=== PATIENT | male | born 1985 | race Caucasian/White ===

== ENCOUNTER 2022-04-08 21:23 | Emergency (ER) | payer OTHER, SELFPAY ==
[2022-04-08 22:01] VITALS: BP 123/86; PULSE 78; RESP 16; TEMP 36.4; O2SAT 99; BMI 31.6
--- NOTE | 2022-04-08 22:44 | CRLHL7_ITS ---
For Patients: As a result of the Cures Act, medical imaging exams and procedure reports are released immediately into your electronic medical record. You may view this report before your referring provider. If you have questions, please contact your health care provider. INDICATION: Left knee effusion. COMPARISON: Bilateral knees from 11/04/2020 FINDINGS: The left knee was examined with AP, lateral, and sunrise views for a total of three views. There is no sign of fracture or dislocation. There is progressive primary osteoarthritis of the medial joint compartment, now moderate, with moderate joint space narrowing and moderate marginal osteophyte formation, both increased during the interval. The lateral joint compartment is normal in appearance. There continues to be mild primary osteoarthritis of the patellofemoral articulation with mild marginal osteophyte formation. There is a stable moderate suprapatellar joint effusion. No soft tissue abnormality is seen. IMPRESSION: Stable moderate suprapatellar joint effusion. No sign of acute osseous injury. Progression of primary osteoarthritis of the medial joint compartment, now moderate. Stable mild primary osteoarthritis of the patellofemoral articulation. Dictated by Oneil Pope MD @ 04/08/2022 11:31:38 PM (Electronically Signed)
[2022-04-08 23:20] VITALS: TEMP 36.4
[2022-04-08] MEDS: KETOROLAC 30 MG/ML inj IM (23:20)
--- NOTE | 2022-04-08 23:22 | ED_ITS ---
HPI - Extremity Injury (Lower) General Time Seen by Provider: 23:25 Date Seen: 04/08/22 Chief Complaint: Extremity Pain/Injury, Lower Stated Complaint: Left knee pain Time Seen by Provider: 04/08/22 22:36 Source: patient, RN notes reviewed and old records reviewed Mode of arrival: ambulatory Limitations: no limitations History of Present Illness HPI Narrative: Anjel is a very pleasant 36-year-old gentleman with a history of gout who comes to the emergency room with left knee pain and swelling. Patient notes that this is been ongoing for approximately 10 days. He initially thought this may be related to his participation in [employer]. He notes that even though his knee was bothering him on ThursdayApril 07 he still participated and noticed increasing pain after that. Has had pain and swelling in this knee before related to gout and thus he had been taking indomethacin. It has not really helped. He does not remember a moment in digits 2 where he felt something snap but feels like there is something going on inside. He does note that his exercises have been very intense lately. Moving definitely increases the pain. He does have crutches at home but has not been using them. Denies any other injury. Related Data Home Medications Medication Instructions Recorded Confirmed allopurinol 100 mg tablet 100 mg PO DAILY 04/08/22 04/08/22 Previous Rx's Medication Instructions Recorded indomethacin 25 mg capsule 25 mg PO TID PRN #60 cap 04/08/22 Allergies Allergy/AdvReac Type Severity Reaction Status Date / Time No Known Drug Allergies Allergy Verified 04/08/22 22:04 Review of Systems Narrative: No recent fever chills. Denies numbness or tingling. [facility] Medical History Gout Surgical History No significant past surgical history Social History Smoking Status: Never smoker Do you use any of these nicotine containing products: None How often do you have a drink containing alcohol: never How often do you have six or more drinks on one occasion: Never AUDIT-C Alcohol total score: 0 Non-prescribed substance use: denies use Exam Narrative: Exam Narrative: Patient is alert and oriented. No respiratory distress. Patient clearly has effusion of the left knee. It is not erythematous nor warm to the touch. Patient has pain increased with posterior movement of the lower extremity. Anterior drawer is mildly positive. Distally sensation and motor is intact. Const: Vital Signs, click to edit/add: Vital Signs - 24 hr 04/08/22 22:01 04/08/22 23:20 Temperature 97.6 F 97.6 F Pulse Rate [Right Pulse Oximeter] 78 Respiratory Rate 16 Blood Pressure [Ri ght Upper Arm] 123/86 Pulse Oximetry 99 Course Course Hospital Course: At this time patient is receptive to Toradol 30 mg IM. Will proceed with x-ray of the left knee. Prescription monitoring program checked and patient did receive Vicodin in Jan, 2015 tablets, tramadol in December and 6 tablets of Vicodin in June 05. Vital Signs Vital signs: Initial Vital Signs Temperature 97.6 F 04/08/22 22:01 Temperature Source Temporal Artery Scan 04/08/22 22:01 Pulse Rate 78 04/08/22 22:01 Respiratory Rate 16 04/08/22 22:01 Blood Pressure 123/86 04/08/22 22:01 Blood Pressure Mean 98 04/08/22 22:01 Blood Pressure Position Sitting 04/08/22 22:01 Pulse Oximetry 99 04/08/22 22:01 Oxygen Delivery Method 04/08/22 22:01 Vital Signs Temperature 97.6 F 04/08/22 22:01 Pulse Rate 78 04/08/22 22:01 Respiratory Rate 16 04/08/22 22:01 Blood Pressure 123/86 04/08/22 22:01 Pulse Oximetry 99 04/08/22 22:01 Temperature 97.6 F 04/08/22 23:20 Pulse Rate 78 04/08/22 22:01 Respiratory Rate 16 04/08/22 22:01 Blood Pressure 123/86 04/08/22 22:01 Pulse Oximetry 99 04/08/22 22:01 MDM - Extremity Injury (Lower) MDM Narrative Medical decision making narrative: 1. Left knee effusion-I do not think we are dealing with gout in this particular instance as patient had no improvement with indomethacin. 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 I would recommend Scott wrap. Initially we spoke of a knee immobilizer but he states he tried 1 at home and this increased his pain. Would recommend icing mid limited movement and the use of crutches. He does have crutches at home. Will give him a read fill of his Indocin that he may use as an anti- inflammatory. Will also give him few tablets of Vicodin only for tonight. Would recommend follow-up with Orthopedics as he may need MRI. Note for work for this evening for patient. Scott wrap applied. 2. Disposition home. Medical Records Attestation: I reviewed the patient's medical records. Imaging Data Left knee: Attestation: I have reviewed the pertinent imaging results. My impression: Joint effusion. Radiologist's impression: Joint effusion and progression of primary osteoarthritis. Discharge Plan Discharge Clinical Impression: Effusion of left knee Patient Disposition: Home, Self-Care Condition: Improved Additional Instructions: Indomethacin as needed for discomfort. Vicodin to be used sparingly for pain not relieved by indomethacin. Follow up with Orthopedics for recheck. You may need MRI. Return to the emergency room for fever, increasing redness and as needed. Prescriptions: New indomethacin 25 mg capsule 25 mg PO TID PRN (Reason: premature labor) Qty: 60 0RF Rx Instructions: administer with food or milk No Action allopurinol 100 mg tablet 100 mg PO DAILY 0RF Stand Alone Forms: [employer] Info Instructions
[2022-04-08 23:45] VITALS: BP 119/85; PULSE 79; RESP 16; TEMP 36.4; O2SAT 99
[2022-04-08 23:46] VITALS: BP 119/85; PULSE 79; RESP 16; TEMP 36.4
== END 2022-04-08 23:56 | disposition home or self-care (01) ==
PROVIDERS: Emergency Provider Family Medicine
DX: M25.462 Effusion, left knee (principal)
CPT/HCPCS: 73562; 96372; 99283; 99284; J1885

== ENCOUNTER 2022-08-16 18:17 | Emergency (ER) | payer OTHER, SELFPAY ==
[2022-08-16 18:22] VITALS: BMI 31.8
--- NOTE | 2022-08-16 18:44 | ED.UPPEXIN ---
HPI - Extremity Injury (Upper) General Time Seen by Provider: 18:44 Date Seen: 08/16/22 Chief Complaint: Extremity Pain/Injury, Upper Stated Complaint: R wrist injury, Giuseppeu injury Time Seen by Provider: 08/16/22 18:44 Source: patient and RN notes reviewed Mode of arrival: ambulatory Limitations: no limitations History of Present Illness HPI narrative: Patient is a 37-year-old male coming in with right wrist pain from earlier this week. It has been swelling and having pain since an injury from qamar. Denies any numbness tingling but moving his fingers or his hand hurts along the wrist area. Nothing else was injured. It is his wrist that is hurting. complaint: injury to: right and wrist Related Data Previous Rx's Medication Instructions Recorded lidocaine 4 % topical patch 1 patch topical BID PRN pain #10 ea 06/05/22 (Aspercreme (lidocaine)) methocarbamol 750 mg tablet 750 mg PO Q8H #10 tabs 06/05/22 Allergies Allergy/AdvReac Type Severity Reaction Status Date / Time No Known Drug Allergies Allergy Verified 08/16/22 18:22 Review of Systems Narrative: As per HPI [facility] Medical History Gout Surgical History No significant past surgical history Social History Smoking Status: Never smoker Do you use any of these nicotine containing products: None How often do you have a drink containing alcohol: never How often do you have six or more drinks on one occasion: Never AUDIT-C Alcohol total score: 0 Non-prescribed substance use: denies use service: Yes Exam Const: Documenting provider has reviewed patient's vital signs: yes Common normals: no apparent distress, average body habitus, oriented x3, no limitations, healthy appearing, alert and well nourished Other: Patient has some obvious soft tissue swelling without any ecchymosis about his right wrist in comparison to his left. No snuffbox tenderness. Can flex and extend the fingers but he states that causes pain into the wrist. Pain is most definitely isolated to the wrist area, is not into the forearm above the wrist or into the hand. Feels more pain dorsally in the wrist. Has normal light touch sensation of his fingers, normal vascularity of this extremity. Neuro: Common normals: oriented x3 Sensorium/orientation: alert Course Course Hospital Course: Will obtain an x-ray of his right wrist to rule out underlying fracture. Patient is in agreement. Reevaluation(s) Reevaluation #1: Reviewed with patient negative x-ray for fracture. We discussed the possibility of soft tissue injury. At this time would recommend a period immobilization with a wrist splint. We do that for 1-2 weeks. If ongoing pain and unable to transition out of the wrist splint in this time frame, recommend followup with Orthopedics. He did ask for a note to be off work tonight. I will provide this. Time: 19:38 Vital Signs Vital signs: Initial Vital Signs Temperature Source Temporal Artery Scan 08/16/22 18:22 MDM - Extremity Injury (Upper) Imaging Data X-ray right wrist: Attestation: I have reviewed the pertinent imaging results. My impression: No acute fracture on my preliminary read. Radiologist's impression: Patient: RAFA MENDEZ Facility:?[facility] Patient ID:?[id number] Site Patient ID:?[id number]. Site :?[id number] Study:?XRay Extremity Right WRIST-08/16/2022 7:07:13 PM Ordering Physician:Brad Khan Final Report: HISTORY: Wrist injury. TECHNIQUE: Right wrist 3 views. COMPARISON: None. FINDINGS: No fracture or dislocation. Mild degenerative changes of the distal radioulnar joint. Negative ulnar variance. Joint spaces are otherwise maintained. Soft tissue swelling in the distal forearm and wrist. IMPRESSION: Soft tissue swelling. No acute bone abnormality. Dictated by Alexandru Hollins MD @ 08/16/2022 7:17:47 PM (Electronic Signature) Critical Care Time Critical Care Time Critical Care Time: No Discharge Plan Discharge Clinical Impression: Sprain and strain of wrist Patient Disposition: Home, Self-Care Condition: Stable Instructions: Wrist Sprain (ED) Additional Instructions: Recommend using wrist splint for the next 1-2 weeks for mobilization. Would still recommend icing and elevating to help diminish swelling. Tylenol and ibuprofen per bottle directions as needed for discomfort. Did provide a note to be off work tonight. If your symptoms are not improving over the next week or are worsening at any point, recommend followup with Orthopedics. Orthopedic office number is [phone]. Prescriptions: No Action methocarbamol 750 mg tablet 750 mg PO Q8H Qty: 10 0RF lidocaine [Aspercreme (lidocaine)] 4 % adhesive patch,medicated 1 patch topical BID PRN (Reason: pain) Qty: 10 0RF Follow Up/Referrals: Provider,Not a Local [Primary Care Provider] - Stand Alone Forms: [facility] Info Instructions
--- NOTE | 2022-08-16 18:47 | CRLHL7_ITS ---
For Patients: As a result of the Cures Act, medical imaging exams and procedure reports are released immediately into your electronic medical record. You may view this report before your referring provider. If you have questions, please contact your health care provider. HISTORY: Wrist injury. TECHNIQUE: Right wrist 3 views. COMPARISON: None. FINDINGS: No fracture or dislocation. Mild degenerative changes of the distal radioulnar joint. Negative ulnar variance. Joint spaces are otherwise maintained. Soft tissue swelling in the distal forearm and wrist. IMPRESSION: Soft tissue swelling. No acute bone abnormality. Dictated by Alexandru Hollins MD @ 08/16/2022 7:17:47 PM (Electronically Signed)
--- OUTSIDE RECORDS SUMMARY | 2022-08-16 19:10 | XMS_ITS | Clinical Summary ---
:1985 Author Organization [facility] [place] [address] Care Team Providers Name Role Phone [facility] Primary Care Provider Allergies No known active allergies Medications Medication Sig Dispensed Refills Start Date End Date Status indomethacin (INDOCIN) Take 1 Capsule 60 Capsule 0 10/08/2021 Active 50 mg (50 mg) by mouth capsuleIndications: 3 times daily Foot pain, right, with meals. History of gout allopurinoL (ZYLOPRIM) Take 1 Tablet 90 Tablet 0 12/30/2021 Active 100 mg (100 mg) by mouth tabletIndications: once daily. History of gout traMADoL (ULTRAM) 50 Take 1 Tablet (50 10 Tablet 0 12/30/2021 Active mg tabletIndications: mg) by mouth Acute midline low back every 6 hours. pain without sciatica Active Problems Problem Noted Date Alcohol abuse 02/03/2019 Generalized anxiety disorder 02/03/2019 Psychophysiological insomnia 02/03/2019 Acute idiopathic gout of right knee 11/04/2017 Overview: Oct 2017: Gout diagnosis confirmed with joint aspiration of right knee showing gout crystals. December 2017: Saw Dr. Horta for rheumatoid consult, agreed with continue allopurinol for goal of uric Acid under 6. Encounters Date Type Specialty Care Team Description 06/23/2022 Office Visit Hortensia Calle Elbow Injury ( Left elbow MATI Richardson pain/injury on Thursday. Yesterday reall y swollen. Has been icing and taking tylenol./Swelli ng worse. Cannot bend elb ow. Pain does not radiate./Mati tatum not currently takin g any prescribed medi cations.) 06/23/2022 Travel 06/05/2022 Travel 06/05/2022 Nurse Triage [facility] DO Arm Pai n/problem from Last 3 Months Immunizations Name Administration Dates Next Due Influenza, IIV3 (Age 6-35 mos) 07/12/2015 Influenza, IIV4 06/21/2020, 06/07/2019, 07/05/2018 Tdap 07/05/2018 Social History Tobacco Use Types Packs/Day Years Used Date Never Smoker Smokeless Tobacco: Former User Tobacco Cessation: Counseling Given: Yes Alcohol Use Standard Drinks/Week Comments Not Currently 0 (1 standard drink = 0.6 oz pure alcoho l) Quit drinking 01/14/2019 Alcohol Habits Answer Date Recorded How often do you have a drink containing Not asked 02/21/2019 alcohol? How many drinks containing alcohol do you have Not asked 02/21/2019 on a typical day when you are drinking? How often do you have six or more drinks on Not asked one occasion? Comment: Quit drinking 01/14/2019 02/21/2019 Sex Assigned at Date Recorded Not on file Obstetrics History Last Filed Vital Signs Vital Sign Reading Time Taken Comments Blood Pressure 118/71 06/23/2022 8:26 AM CDT Pulse 83 06/23/2022 8:26 AM CDT Temperature 36.9 ??C (98.4 ??F) 06/23/2022 8:26 AM CDT Respiratory Rate 12 01/04/2018 1:17 PM CDT Oxygen Saturation 98% 06/23/2022 8:26 AM CDT Inhaled Oxygen Concentration - - Weight 104.1 kg (229 lb 6.4 oz) 06/23/2022 8:26 AM CDT Height 179.1 cm (5' 10.5) 04/21/2022 5:36 PM CDT Body Mass Index 32.45 04/21/2022 5:36 PM CDT Plan of Treatment Health Maintenance Due Date Last Done Comments Pneumococcal series for age 19-64 1992 (1 - PCV) HIV for age 15-65 2001 Hepatitis C screening for age 0905/15/2004 18-79 COVID-19 vaccine series (3 - 03/28/2021 01/31/2021, 021 Booster for Pfizer series) Lipids for age 35-44 2021 Depression screening for age 12+ 06/21/2021 06/21/2020, 05/2019, 03/01/2019, Additional history exists Influenza for age 9-49 2022 06/21/2020, 06/07/2019, 07/05/2018 BMI (ht and wt on same day) for 04/21/2023 04/21/2022, 07/15, age 18+ 06/21/2020, Additional history exists Tetanus booster 07/05/2028 07/05/2018 Tdap Completed 07/05/2018 Results Not on filefrom Last 3 Months Insurance Payer Benefit Plan / Subscriber ID Effective Dates Phone Addre ss Type Group [employer] [id number] 2018-[id number] [place] [id number] [employer] Employer 09/14/2000 [phone] ATTN: CHELSEA FINK [facility] [phone] (Home) [place] [address] [employer] Employer 09/14/2000 [phone] [id number] [employer] [facility] [address] (Home) [place] [address] 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
== END 2022-08-16 19:52 | disposition home or self-care (01) ==
PROVIDERS: Emergency Provider Family Medicine
DX: S63.501A Unspecified sprain of right wrist, initial encounter (principal); Y93.75 Activity, martial arts
CPT/HCPCS: 29125; 73110; 99283

== ENCOUNTER 2022-08-18 04:08 | Emergency (ER) | payer OTHER, SELFPAY ==
[2022-08-18 04:23] VITALS: BP 120/83; PULSE 88; RESP 20; TEMP 36.2; O2SAT 98; BMI 31.8
--- NOTE | 2022-08-18 04:24 | ED_ITS ---
HPI - General Adult General Time Seen by Provider: 04:24 Date Seen: 08/18/22 Chief complaint: Extremity Pain/Injury, Upper Stated complaint: Right arm pain Time Seen by Provider: 08/18/22 04:23 Source: patient and RN notes reviewed Mode of arrival: ambulatory Limitations: no limitations History of Present Illness HPI narrative: Patient is returning with severe pain in his forearm in now into his hand. If he moves his elbow it hurts into the forearm. He is taken doses of Tylenol and ibuprofen, he has been icing and elevating. This was initial injury in [facility], had 300 lb person sit on this arm or impinge it. I saw the patient on August 16 for increasing pain and swelling of the forearm/wrist, patient wanted to make sure there was not a fracture. He had visible swelling about the wrist/distal forearm, x-ray was negative for fracture but did document this swelling. He was discharged with conservative management which he has been doing. Related Data Previous Rx's Medication Instructions Recorded lidocaine 4 % topical patch 1 patch topical BID PRN pain #10 ea 06/05/22 (Aspercreme (lidocaine)) methocarbamol 750 mg tablet 750 mg PO Q8H #10 tabs 06/05/22 prednisone 20 mg tablet 20 mg PO BID #10 tabs 08/18/22 Allergies Allergy/AdvReac Type Severity Reaction Status Date / Time No Known Drug Allergies Allergy Verified 08/16/22 18:22 Review of Systems Narrative: As noted above [facility] Medical History Gout Surgical History No significant past surgical history Social History Smoking Status: Never smoker Do you use any of these nicotine containing products: None Second hand tobacco smoke exposure: No How often do you have a drink containing alcohol: never How often do you have six or more drinks on one occasion: Never AUDIT-C Alcohol total score: 0 Non-prescribed substance use: denies use service: Yes Exam Const: Vital Signs, click to edit/add: Vital Signs - 24 hr 08/18/22 04:23 08/18/22 07:43 Temperature 97.1 F L 98.7 F Pulse Rate [Left P ulse Oximeter] 88 70 Respiratory Rate 20 20 Blood Pressure [Le ft Upper Arm] 120/83 124/79 Pulse Oximetry 98 99 Oxygen Delivery Me thod Room Air Room Air Documenting provider has reviewed patient's vital signs: yes Other: Patient is alert and interactive, is certainly pleasant but seems to be uncomfortable. What I note is his right hand is definitely significantly swollen, globally swollen in the hand. His right wrist and forearm actually look less swollen than when I saw him on the 3rd. His thumbnail is a bit dusky, states it feels a little tingly in that finger when I do light touch sensation. He can feel it but he states it is tingly. Has normal sensation of his other fingers. I can palpate down his forearm and does complain of pain when I get around his wrist area. Even when I attempt to touch his fingers, any range of motion through any of the digits is exquisitely painful. They are warm. It is just his thumb that feels somewhat numb, none of the other fingers. Again he has erythematous coloration, warm fingers. There is no palor. He is tender when I try to palpate but I do believe I feel a radial pulse. Movement of his digits, hand or elbow gives him severe pain in the forearm. Overall his hand and fingers feel warm but any touching or attempts at manipulation is extremely painful for him. His forearm does not seem is swollen to me as what it was but it is possible that the wrist and fingers/hand are so much more swollen that it makes it look less swollen. Course Course Hospital Course: We have page Orthopedics immediately. Nursing staff was concerned about the potential for compartment syndrome here. I do think we certainly need to rule this out. Other potential etiologies are complex regional pain syndrome. Will have nursing staff place an IV, get some baseline labs. Will obtain a CK and case this is some aberrant presentation of a myositis. Reevaluation(s) Reevaluation #1: Have spoken with Teena from Orthopedics. He will have the orthopedic team see this patient prior to going to the OR. It would be atypical for a compartment syndrome as it is not necessarily his forearm that is problematic but more so his wrist and hand. We will have Orthopedics weigh in on this. I do feel as far as the vascular status that there has certainly time for them to come and see him. In the meantime, we will establish an IV and obtain some baseline labs. Nathanael does support that. I have talked to the patient again, he is declining any pain medicine at this time as he does need to drive. Did review with him if it is that painful, he certainly can have IV pain medicines and we can figure out disposition at a later time. He is to let us know if he changes his mind on pain management. Time: 04:38 Reevaluation #2: Both Nathanael and Dr. Tenorio have seen this patient. They believe that the patient now has probably irritated his olecranon bursa from his resting his elbow and elevating his arm. His wrist is definitely irritated, possibly gout. They would like to try a course of prednisone which we will prescribe. Have him follow up with his primary care provider within the next 1-3 days. Nathanael did note that the patient had some tramadol at home, had talked him about using that for pain if needed. Time: 08:45 Vital Signs Vital signs: Initial Vital Signs Temperature 97.1 F L 08/18/22 04:23 Temperature Source Temporal Artery Scan 08/18/22 04:23 Pulse Rate 88 08/18/22 04:23 Respiratory Rate 20 08/18/22 04:23 Blood Pressure 120/83 08/18/22 04:23 Blood Pressure Mean 95 08/18/22 04:23 Blood Pressure Position Sitting 08/18/22 04:23 Pulse Oximetry 98 08/18/22 04:23 Oxygen Delivery Method 08/18/22 04:23 Vital Signs Temperature 97.1 F L 08/18/22 04:23 Pulse Rate 88 08/18/22 04:23 Respiratory Rate 20 08/18/22 04:23 Blood Pressure 120/83 08/18/22 04:23 Pulse Oximetry 98 08/18/22 04:23 Oxygen Delivery Method 08/18/22 04:23 Temperature 98.7 F 08/18/22 07:43 Pulse Rate 70 08/18/22 07:43 Respiratory Rate 20 08/18/22 07:43 Blood Pressure 124/79 08/18/22 07:43 Pulse Oximetry 99 08/18/22 07:43 Oxygen Delivery Method 08/18/22 07:43 Medical Decision Making Lab Data Labs: Lab Results 08/18/22 08/18/22 08/18/22 Range/Units 04:56 04:57 04:57 WBC 7.99 (4.50-11.00) K/uL RBC 4.73 (4.30-5.90) m/uL Hgb 13.7 (13.5-17.5) gm/dL Hct 40.2 (37.0-53.0) % MCV 85 (80-100) fL MCH 29 (26-34) pg MCHC 34 (32-36) gm/dL RDW Coeff of Bijal 13.2 (11.5-15.5) % Plt Count 234 (140-440) K/uL Neut % (Auto) 78.1 H (42.0-72.0) % Lymph % (Auto) 13.0 L (20-44) % [place] % (Auto) 6.8 (0.0-11.0) % Eos % (Auto) 1.5 (0.0-7.0) % Baso % (Auto) 0.5 (0.0-3.0) % Neut # (Auto) 6.20 (1.7-7.0) K/uL Lymph # (Auto) 1.00 (0.90-2.90) K/uL [place] # (Auto) 0.50 (0.00-0.90) K/UL Eos # (Auto) 0.12 (0.00-0.50) K/uL Baso # (Auto) 0.04 (0.00-0.30) K/uL Abs Immat Gran (auto) 0.01 (0.00-0.30) K/uL Imm/Tot Granulo (auto) 0.1 % ESR 28 H (2-15) mm/hr Sodium 142 (135-149) mmol/L Potassium 4.3 (3.6-5.1) mmol/L Chloride 109 (96-114) mmol/L Carbon Dioxide 23 (20-32) mmol/L BUN 12 (5-24) mg/dL Creatinine 0.7 (0.5-1.5) mg/dL Estimated Creat Clear 150.63 Estimated GFR 122 ml/min Glucose 100 (60-115) mg/dL Lactate (0.5-1.9) mmol/L Calcium 9.4 (8.4-10.6) mg/dL Total Creatine Kinase 84 (54-186) U/L C-Reactive Protein 4.0 H (0.5-1.0) mg/dL 08/18/22 Range/Units 04:57 WBC (4.50-11.00) K/uL RBC (4.30-5.90) m/uL Hgb (13.5-17.5) gm/dL Hct (37.0-53.0) % MCV (80-100) fL MCH (26-34) pg MCHC (32-36) gm/dL RDW Coeff of Bijal (11.5-15.5) % Plt Count (140-440) K/uL Neut % (Auto) (42.0-72.0) % Lymph % (Auto) (20-44) % [place] % (Auto) (0.0-11.0) % Eos % (Auto) (0.0-7.0) % Baso % (Auto) (0.0-3.0) % Neut # (Auto) (1.7-7.0) K/uL Lymph # (Auto) (0.90-2.90) K/uL [place] # (Auto) (0.00-0.90) K/UL Eos # (Auto) (0.00-0.50) K/uL Baso # (Auto) (0.00-0.30) K/uL Abs Immat Gran (auto) (0.00-0.30) K/uL Imm/Tot Granulo (auto) % ESR (2-15) mm/hr Sodium (135-149) mmol/L Potassium (3.6-5.1) mmol/L Chloride (96-114) mmol/L Carbon Dioxide (20-32) mmol/L BUN (5-24) mg/dL Creatinine (0.5-1.5) mg/dL Estimated Creat Clear Estimated GFR ml/min Glucose (60-115) mg/dL Lactate 0.9 (0.5-1.9) mmol/L Calcium (8.4-10.6) mg/dL Total Creatine Kinase (54-186) U/L C-Reactive Protein (0.5-1.0) mg/dL Discharge Plan Discharge Clinical Impression: Bursitis, olecranon, Acute pain of right wrist Patient Disposition: Home, Self-Care Condition: Stable Instructions: Low Purine Diet (ED), Elbow Bursitis (ED), Gout (ED) Additional Instructions: Start prednisone and take as prescribed, take with food to protect her stomach. You need to dose Tylenol ibuprofen per bottle directions. The Tylenol is 1000 mg up to 3 times a day, ibuprofen is 600 mg up to 4 times a day with food. Continue using the wrist splint for comfort, continue icing and elevating. Need to make a clinic follow-up with your primary care provider in the next 1-3 days for recheck. If you develop fever, have increasing pain, feel that you are wor sening, please seek re-evaluation as you have done today. Trauma can precipitate gout, the orthopedist is wondering if there certainly could be a component of gout in the wrist. Pad your elbow, try to minimize resting on the elbow. Activity Level: Activity as Tolerated Prescriptions: New prednisone 20 mg tablet 20 mg PO BID Qty: 10 0RF No Action methocarbamol 750 mg tablet 750 mg PO Q8H Qty: 10 0RF lidocaine [Aspercreme (lidocaine)] 4 % adhesive patch,medicated 1 patch topical BID PRN (Reason: pain) Qty: 10 0RF Follow Up/Referrals: Provider,Not a Local [Primary Care Provider] - Stand Alone Forms: [employer] Info Instructions
[2022-08-18 05:02] LABS: Lactate* 0.9 mmol/L (0.5-1.9)
[2022-08-18 05:04] LABS: Basophils Absolute Auto 0.04 K/uL (0.00-0.30); Basophils Percent Auto 0.5 % (0.0-3.0); Eosinophils Absolute Auto 0.12 K/uL (0.00-0.50); Eosinophils Percent Auto 1.5 % (0.0-7.0); Hematocrit 40.2 % (37.0-53.0); Hemoglobin* 13.7 gm/dL (13.5-17.5); Immature Granulocytes Abs Auto 0.01 K/uL (0.00-0.30); Immature Granulocytes Pct Auto 0.1 %; Mean Corpuscular HGB Conc 34 gm/dL (32-36); Mean Corpuscular Hemoglobin 29 pg (26-34); Mean Corpuscular Volume 85 fL (80-100); Monocytes Percent Auto 6.8 % (0.0-11.0); Neutrophils Percent Auto 78.1 % (42.0-72.0); Platelet Count* 234 K/uL (140-440); RDW Coefficient of Variation % 13.2 % (11.5-15.5); Red Blood Count 4.73 m/uL (4.30-5.90); White Blood Count* 7.99 K/uL (4.50-11.00)
--- OUTSIDE RECORDS SUMMARY | 2022-08-18 05:09 | XMS_ITS | Clinical Summary ---
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
[2022-08-18 05:12] LABS: Slide Review Reflex No
[2022-08-18 05:21] LABS: Chloride* 109 mmol/L (96-114); Sodium* 142 mmol/L (135-149)
[2022-08-18 05:22] LABS: Potassium* 4.3 mmol/L (3.6-5.1)
[2022-08-18 05:24] LABS: Creatine Kinase* 84 U/L (54-186); Creatinine* 0.7 mg/dL (0.5-1.5); Est. Creatinine Clearance* 150.63; Estimated Glomerular Filt Rate 122 ml/min
[2022-08-18 05:25] LABS: Blood Urea Nitrogen* 12 mg/dL (5-24); Calcium* 9.4 mg/dL (8.4-10.6); Carbon Dioxide* 23 mmol/L (20-32); Glucose* 100 mg/dL (60-115)
[2022-08-18 05:53] LABS: Erythrocyte SedimentationRate* 28 mm/hr (2-15)
[2022-08-18 07:43] VITALS: BP 124/79; PULSE 70; RESP 20; TEMP 37.1; O2SAT 99
[2022-08-18] MEDS: KETOROLAC 15 MG/ML inj IVP (07:53)
--- NOTE | 2022-08-18 08:03 | ED.NURSE ---
has been evaluated per justin hoskins. was given toradol 15 mg iv.
--- NOTE | 2022-08-18 16:22 | PM.ORCN ---
History of Present Illness HPI Date Seen: 08/18/22 Chief complaint: Right arm pain Narrative: Anjel is a pleasant 37-year-old male. He presents with a complaint of right hand/forearm pain and swelling. He also notes right posterior elbow pain and swelling. This all seemed to start approximately 1 week ago. At that time, it was spontaneous development of right wrist pain primarily. He had subsequent wrist and hand swelling. He does carry history of gout, but is uncertain if this is the origin. He had difficulty with gripping and squeezing, but chose to partake in a [employer] type of [employer] arts competition 08/16/2022. At that time, his opponent fell onto his right forearm with both knees. The that evening he noted increasing swelling and pain about his wrist and hand. He present to the ED that evening. Reportedly, x-rays were obtained revealed no fractures. He was discharged home encouraged to elevate, ice, was provided a wrist brace. He returns to the ED early this morning (08/18/2022) with ongoing complaints of pain, swelling, and uncertainty of what to do. He also notes posterior right elbow pain. This is somewhat new, but he attributes this to the possibility of him trying to elevate his hand and therefore resting his elbow on firm surfaces for the last 36-48 hours. He has no fevers or chills. No numbness or tingling. He notes that is difficult to make a fist or extend his fingers all the way. Review of Systems Narrative: No fevers or chills, nausea vomiting, diarrhea or constipation. No chest pain or shortness of breath. No blurry vision double vision or headaches. No easy bleeding or bruising or clotting disorders in herself or family members. Remaining 10 point review systems otherwise negative outside of the right upper extremity pain complaints [facility] Medical History Gout Surgical History No significant past surgical history Social History Smoking Status: Never smoker Do you use any of these nicotine containing products: None Second hand tobacco smoke exposure: No How often do you have a drink containing alcohol: never How often do you have six or more drinks on one occasion: Never AUDIT-C Alcohol total score: 0 Non-prescribed substance use: denies use service: Yes Meds Home Medications and Allergies Allergies Allergy/AdvReac Type Severity Reaction Status Date / Time No Known Drug Allergies Allergy Verified 08/16/22 18:22 Ortho Exam Narrative Exam Narrative: Alert and oriented x3. No acute distress. Nonlabored breathing. Exam of the bilateral hands shows that he has a knee thick, muscular, strong marketing intelligence manager strength kind of man. Even the contralateral hand shows robust thenar and hypothenar prominences with good marketing intelligence manager strength power. Particular to the right hand, he shows even more swelling of the wrist circumferentially. Also swelling of the hand and digits. He is tender palpation along the long finger both dorsally and volarly from the middle phalanx to the MCP joint region. His thumb somewhat tender in a similar pattern from the IP joint to the mid metacarpal both volar and dorsally. The remaining digits have minimal to no pain with palpation. The other digits can fully flex and extend with minimal discomfort. The long finger and thumb are somewhat painful with full extension or attempted full flexion. He lacks a full composite fist by 2 cm due to a combination of swelling and tightness. Palpation of the inner metacarpal spaces is nontender. He is nontender over the thenar or hypothenar the musculature. His wrist is swollen, and tender dorsal centrally. Nontender anatomic snuffbox/radial styloid region. Nontender TFC/ulnar styloid region. No significant erythema surrounding hand or wrist otherwise. Nontender throughout the forearm. Forearm musculature is supple. Right elbow shows 6 cm in diameter region of erythema centered over the posterior olecranon. There is no appreciable fluid collection, but he is significantly tender to palpation over the posterior elbow. His elbow range of motion is limited with a 30 degree arc from her proximal 20-50 degrees today. Pronation/supination does not produce pain. He is nontender at the radiocapitellar or anterior joint surface otherwise. Const Vital Signs, click to edit/add: Vital Signs - 24 hr 08/18/22 04:23 08/18/22 07:43 Temperature 97.1 F L 98.7 F Pulse Rate [Left Pulse Oximeter] 88 70 Respiratory Rate 20 20 Blood Pressure [Left Upper Arm] 120/83 124/79 Pulse Oximetry 98 99 Oxygen Delivery Method Room Air Room Air Results Labs Labs: Laboratory Results - last 48 hr 08/18/22 08/18/22 08/18/22 04:56 04:57 04:57 WBC 7.99 RBC 4.73 Hgb 13.7 Hct 40.2 MCV 85 MCH 29 MCHC 34 RDW Coeff of Bijal 13.2 Plt Count 234 Neut % (Auto) 78.1 H Lymph % (Auto) 13.0 L [place] % (Auto) 6.8 Eos % (Auto) 1.5 Baso % (Auto) 0.5 Neut # (Auto) 6.20 Lymph # (Auto) 1.00 [place] # (Auto) 0.50 Eos # (Auto) 0.12 Baso # (Auto) 0.04 Abs Immat Gran (auto) 0.01 Imm/Tot Granulo (auto) 0.1 ESR 28 H Sodium 142 Potassium 4.3 Chloride 109 Carbon Dioxide 23 BUN 12 Creatinine 0.7 Estimated Creat Clear 150.63 Estimated GFR 122 Glucose 100 Lactate Calcium 9.4 Total Creatine Kinase 84 C-Reactive Protein 4.0 H 08/18/22 04:57 WBC RBC Hgb Hct MCV MCH MCHC RDW Coeff of Bijal Plt Count Neut % (Auto) Lymph % (Auto) [place] % (Auto) Eos % (Auto) Baso % (Auto) Neut # (Auto) Lymph # (Auto) [place] # (Auto) Eos # (Auto) Baso # (Auto) Abs Immat Gran (auto) Imm/Tot Granulo (auto) ESR Sodium Potassium Chloride Carbon Dioxide BUN Creatinine Estimated Creat Clear Estimated GFR Glucose Lactate 0.9 Calcium Total Creatine Kinase C-Reactive Protein Diagnostic results Additional Comments: Three views the right wrist from [facility] dated 08/16/2022 ordered by different providers were reviewed by me. This shows no acute fractures, avulsions, or intraosseous pathology. No significant effusions clearly appreciated either. No signs of AVN. Osseous structures appear well. Generalized swelling about the wrist and hand that is seen is noted. Assessment and Plan Assessment and plan (1) Bursitis, olecranon: Status: Acute (2) Acute pain of right wrist: Status: Acute Plan It seems that the patient is experiencing a 2 or 3 separate pathologies at this time. Regarding the elbow, I do think he is experiencing bursitis of the olecranon bursa. This appears aseptic, but is very painful. I think this is new within the last couple days, consistent this history and possibly related to the prolonged elevation of the right hand in the last 36-48 hours. Regarding the right forearm, I have very low concern for compartment syndrome. He is minimally tender palpation around the forearm musculature. Regarding the right wrist, I do think he has some type of wrist sprain and/or arthritic flare (e.g. gouty arthritis). It also does not appear to be infected. Regarding the right hand, I have a very low concern for compartment syndrome. While I acknowledge she has significant swelling and quite a bit of pain along his long finger and thumb, the compartments of the intermetacarpal spaces (both volar and dorsal), abductor, mid palmar, and the thenar/hypothenar regions are nontender to direct palpation and are still supple when palpated. However, I am thoughtful about the long finger and thumb. It is possible he may have a non-purulent flexor tenosynovitis. At this time, I do think anti-inflammatory modalities are prudent. He has a wrist brace at home, and I would encourage him to use this. Gentle finger range of motion as tolerated. I still would encourage elevation of the hand/fingers at/just slightly above heart level. I spoke with Dr. Nichols regarding this patient. Indeed we usually feel that a steroid round could be helpful for anti-inflammatory action. After this is complete, he can resume oral NSAIDs. He should continue icing as needed. Especially the olecranon bursal region. It would be important for him to follow-up 2 days need to primary care clinical for the monitoring of his symptoms.
== END 2022-08-18 09:24 | disposition home or self-care (01) ==
PROVIDERS: Emergency Provider Family Medicine
DX: M25.531 Pain in right wrist (principal); M70.21 Olecranon bursitis, right elbow
CPT/HCPCS: 36415; 80048; 82550; 83605; 85025; 85651; 86140; 96374; 99283; J1885

== ENCOUNTER 2022-09-10 18:36 | Emergency (ER) | payer OTHER, SELFPAY ==
[2022-09-10 19:07] VITALS: BP 122/79; PULSE 89; RESP 16; TEMP 36.8; O2SAT 100; BMI 32.4
[2022-09-10] MEDS: KETOROLAC 30 MG/ML inj IM (20:36)
--- NOTE | 2022-09-10 21:06 | ED.NURSE ---
bacitracin and bandage applied over knee aspiration location
[2022-09-10] MEDS: predniSONE 10 MG TABLET 50 MG PO (21:12)
[2022-09-10 21:21] VITALS: BP 128/71; PULSE 78; RESP 16; TEMP 37.1
--- NOTE | 2022-09-11 00:30 | ED.EXTPRO ---
HPI - Extremity Problem General Date Seen: 09/11/22 Chief complaint: Lower Extremity Swelling Stated complaint: Swollen R knee Time Seen by Provider: 09/10/22 19:55 Source: patient Mode of arrival: ambulatory Limitations: no limitations History of Present Illness HPI Narrative: Patient is a very nice 37-year-old gentleman who presents ambulatory to the ER for right knee discomfort, he tells me has a history of gout of primarily affecting his right knee in for last 2-3 days it has been swollen and tender. He denies a history of recent procedures, fevers chills sweats, or an injury to his right knee, he does practice duuin, but does not remember injuring his knee, he has had this previously drain before, and that has helped him, he is taking Tylenol and ibuprofen with not a lot of improvement. Related Data Home Medications Medication Instructions Recorded Confirmed allopurinol 100 mg tablet mg 09/10/22 Previous Rx's Medication Instructions Recorded lidocaine 4 % topical patch 1 patch topical BID PRN pain #10 ea 06/05/22 (Aspercreme (lidocaine)) methocarbamol 750 mg tablet 750 mg PO Q8H #10 tabs 06/05/22 prednisone 20 mg tablet 20 mg PO BID #10 tabs 08/18/22 prednisone 50 mg tablet 50 mg PO DAILY #7 tabs 09/10/22 Allergies Allergy/AdvReac Type Severity Reaction Status Date / Time No Known Drug Allergies Allergy Verified 08/16/22 18:22 Review of Systems Status of ROS: Reports: 10 or more systems reviewed and unremarkable except as noted in History and below [facility] Medical History Gout Surgical History No significant past surgical history Social History Smoking Status: Never smoker Do you use any of these nicotine containing products: None Second hand tobacco smoke exposure: No How often do you have a drink containing alcohol: never How often do you have six or more drinks on one occasion: Never AUDIT-C Alcohol total score: 0 Non-prescribed substance use: denies use service: Yes Exam Narrative: Exam Narrative: On examination he is in no apparent distress, his right knee he kelp keeps it flexed at approximately 30?, he can not fully extended knee can not bring it past 90. Popliteal fossa is clear with normal pulses, Marty's maneuvers does cause some tenderness, and his ACL PCL MCL and lateral collateral ligaments all seem intact, distal pulses are normal is DP and posterior tibial he has normal sensation and normal movement of his hip. I did discuss with him arthrocentesis, for both diagnostic reasons and also therapeutic. He is in agreement with this, using the ultrasound I was able to find a pocket of fluid just superior and on the lateral part of his knee, area was anesthetized with 1% xylocaine with epinephrine, x3 mL, then using 16 gauge needle I was able to aspirate 15-20 mL of clear yellowish fluid, this will be sent for culture and also for crystals. He felt markedly improved after the aspiration, there is no complications, no bleeding, and bacitracin and dry dressing were put on this. Sterile technique was used Const: Vital Signs, click to edit/add: Vital Signs - 24 hr 09/10/22 19:07 09/10/22 21:21 Temperature 98.3 F 98.7 F Pulse Rate [Right Pulse Oximeter] 89 78 Respiratory Rate 16 16 Blood Pressure [Ri ght Upper Arm] 122/79 128/71 Pulse Oximetry 100 Oxygen Delivery Me thod Room Air Documenting provider has reviewed patient's vital signs: yes Course Vital Signs Vital signs: Initial Vital Signs Temperature 98.3 F 09/10/22 19:07 Temperature Source Temporal Artery Scan 09/10/22 19:07 Pulse Rate 89 09/10/22 19:07 Respiratory Rate 16 09/10/22 19:07 Blood Pressure 122/79 09/10/22 19:07 Blood Pressure Mean 93 09/10/22 19:07 Blood Pressure Position Sitting 09/10/22 19:07 Pulse Oximetry 100 09/10/22 19:07 Oxygen Delivery Method 09/10/22 19:07 Vital Signs Temperature 98.3 F 09/10/22 19:07 Pulse Rate 89 09/10/22 19:07 Respiratory Rate 16 09/10/22 19:07 Blood Pressure 122/79 09/10/22 19:07 Pulse Oximetry 100 09/10/22 19:07 Oxygen Delivery Method 09/10/22 19:07 Temperature 98.7 F 09/10/22 21:21 Pulse Rate 78 09/10/22 21:21 Respiratory Rate 16 09/10/22 21:21 Blood Pressure 128/71 09/10/22 21:21 Pulse Oximetry 100 09/10/22 19:07 Oxygen Delivery Method 09/10/22 19:07 MDM - Extremity (Nontraumatic) MDM Narrative Medical decision making narrative: Infectious etiology such as bacterial verses gout or pseudogout, traumatic injury also has a possibility. Discharge Plan Discharge Clinical Impression: Gout Patient Disposition: Home, Self-Care Condition: Stable Instructions: Low Purine Diet (ED), Gout (ED) Additional Instructions: Home rest off work till Thursday morning at 1:00 a.m., I recommend elevation and ice also, take the prednisone as directed, follow-up with the doctor I described, recommend use of ibuprofen tomorrow in Tylenol. Make an appointment with Dr. Castellano at [facility] Prescriptions: New prednisone 50 mg tablet 50 mg PO DAILY Qty: 7 0RF No Action methocarbamol 750 mg tablet 750 mg PO Q8H Qty: 10 0RF lidocaine [Aspercreme (lidocaine)] 4 % adhesive patch,medicated 1 patch topical BID PRN (Reason: pain) Qty: 10 0RF prednisone 20 mg tablet 20 mg PO BID Qty: 10 0RF allopurinol 100 mg tablet Follow Up/Referrals: Provider,Not a Local [Primary Care Provider] - Kemar Vela MD [Staff Physician] - Stand Alone Forms: [employer] Info Instructions
== END 2022-09-10 21:21 | disposition home or self-care (01) ==
PROVIDERS: Emergency Provider Family Medicine
DX: M10.9 Gout, unspecified (principal); M25.561 Pain in right knee
CPT/HCPCS: 20610; 87070; 89060; 96372; 99283; J1885; J7512

== ENCOUNTER 2022-09-20 15:08 | Emergency (ER) | payer OTHER, SELFPAY ==
[2022-09-20 15:27] VITALS: BP 115/73; PULSE 71; RESP 18; TEMP 36.8; O2SAT 98
--- NOTE | 2022-09-20 16:22 | ED_ITS ---
HPI - General Adult General Date Seen: 09/20/22 Chief complaint: Chest Pain Stated complaint: Chest Pain - Going on for 1 week Time Seen by Provider: 09/20/22 15:59 Source: patient History of Present Illness HPI narrative: Patient is a 37-year-old male who comes in at the recommendation of the triage line for evaluation of chest pain which has been ongoing for the past week. He describes it as a vague discomfort in his left chest which has been constant, every once in a while at ramps up bit for a secondary to but most of the time it has been pretty mild. It never goes completely away. He does note that some activities where he is using his arm seem to make it worse. He does grappling, which he describes as similar to delphineu, and that seems to aggravate it. He just returned to that this past week as he was out with a hand injury and knee injury asleep. Chest pain does not seem to be particularly positional. Occasionally he feels like he might feel little short of breath but he has not noted any significant shortness of breath. No lightheadedness or syncope. No lower extremity swelling or pain. No fevers or cough. Is not pleuritic. He started to think that he maybe she get his heart checked out, and when he called the triage line they recommended that he come in. He is generally very healthy. No family history of PE or early coronary artery disease. He does not smoke. Drinks rarely. Denies any drug use. Does not believe he has tried any medications at home for pain. Related Data Home Medications Medication Instructions Recorded Confirmed allopurinol 100 mg tablet mg 09/10/22 Previous Rx's Medication Instructions Recorded lidocaine 4 % topical patch 1 patch topical BID PRN pain #10 ea 06/05/22 (Aspercreme (lidocaine)) methocarbamol 750 mg tablet 750 mg PO Q8H #10 tabs 06/05/22 prednisone 20 mg tablet 20 mg PO BID #10 tabs 08/18/22 prednisone 50 mg tablet 50 mg PO DAILY #7 tabs 09/10/22 Allergies Allergy/AdvReac Type Severity Reaction Status Date / Time No Known Drug Allergies Allergy Verified 08/16/22 18:22 Review of Systems Status of ROS: Reports: 10 or more systems reviewed and unremarkable except as noted in History and below [facility] Medical History Gout Surgical History No significant past surgical history Social History Smoking Status: Never smoker Do you use any of these nicotine containing products: None Second hand tobacco smoke exposure: No How often do you have a drink containing alcohol: never How often do you have six or more drinks on one occasion: Never AUDIT-C Alcohol total score: 0 Non-prescribed substance use: denies use service: Yes Exam Narrative: Exam Narrative: Vital signs as noted above. In general, an alert, well-appearing patient. Head: Normocephalic, atraumatic. Eyes: Pupils are equal reactive. Extraocular movements are full. Conjunctivae are normal. ENT: Mucous membranes are moist. Throat is normal. Neck: Supple without lymphadenopathy. Heart: Regular rate and rhythm. No murmur or rub. Lungs: Clear bilaterally. No increased work of breathing, crackles or wheezes. Pain is exacerbated by resisted contraction of the pectoral muscle. Abdomen: Soft and nontender. No organomegaly. Extremities: Well perfused. No edema. No calf tenderness. Pulses intact. Neurologic: Patient is alert and oriented to person and place. Speech is fluent. Face is symmetric. Moves all extremities equally. Affect: Normal. Skin: Warm and dry. Well perfused. Const: Vital Signs, click to edit/add: Vital Signs - 24 hr 09/20/22 15:27 09/20/22 16:58 Temperature 98.3 F Pulse Rate [Pulse Oximeter] 71 65 Respiratory Rate 18 18 Blood Pressure [Le ft Upper Arm] 115/73 102/62 Pulse Oximetry 98 97 Oxygen Delivery Me thod Room Air Room Air Documenting provider has reviewed patient's vital signs: yes Course Course Hospital Course: Patient did have an EKG here, which by my review shows a normal sinus rhythm, ventricular rate of 61 beats per minute. No acute ST segment changes or other abnormalities. Overall, his exam is suggestive of a muscular etiology for his pain, but I did check a troponin which is 0. I am not overly suspicious of acute coronary syndrome and I think with a week of constant pain that a troponin adequately rules out a cardiac source in terms of acute coronary syndrome, myocarditis. I do not see any evidence of pericarditis on his EKG and pain is atypical. He had a chest x-ray which by my review is negative. No evidence of pneumothorax, infiltrate, pleural effusion or other acute abnormality. His D- dimer is negative. He does not have notable risk factors for PE and I think a negative D-dimer adequately rules this out. Overall, I do think this is related to muscular injury, and I would recommend use of ibuprofen a few times a day for a few days up to a week or so to see if he improves. If he worsens or develops new symptoms such as significant shortness of breath, fever, fainting, etcetera, return at any time for re-evaluation. Vital Signs Vital signs: Initial Vital Signs Temperature 98.3 F 09/20/22 15:27 Temperature Source Temporal Artery Scan 09/20/22 15:27 Pulse Rate 71 09/20/22 15:27 Pulse Rhythm 09/20/22 15:27 Respiratory Rate 18 09/20/22 15:27 Blood Pressure 115/73 09/20/22 15:27 Blood Pressure Mean 87 09/20/22 15:27 Blood Pressure Position Sitting 09/20/22 15:27 Pulse Oximetry 98 09/20/22 15:27 Oxygen Delivery Method 09/20/22 15:27 Vital Signs Temperature 98.3 F 09/20/22 15:27 Pulse Rate 71 09/20/22 15:27 Respiratory Rate 18 09/20/22 15:27 Blood Pressure 115/73 09/20/22 15:27 Pulse Oximetry 98 09/20/22 15:27 Oxygen Delivery Method 09/20/22 15:27 Temperature 98.3 F 09/20/22 15:27 Pulse Rate 65 09/20/22 16:58 Respiratory Rate 18 09/20/22 16:58 Blood Pressure 102/62 09/20/22 16:58 Pulse Oximetry 97 09/20/22 16:58 Oxygen Delivery Method 09/20/22 16:58 Medical Decision Making Lab Data Labs: Lab Results 09/20/22 09/20/22 Range/Units 17:02 17:02 D-Dimer Quant (PE/DVT) 0.29 (0.00-0.50) ug/ml Troponin I < 0.01 L (0.01-0.04) ng/mL Discharge Plan Discharge Clinical Impression: Chest wall pain Patient Disposition: Home, Self-Care Condition: Stable Instructions: Chest Wall Pain (ED) Additional Instructions: Recommend taking ibuprofen 400 mg 3 times daily for a few days up to a week with food. Based on your exam today, I think your chest pain is coming from the muscles in your chest. Your labs and x-ray are normal. You can continue with your activities, but it may take longer for years symptoms to improve, as I suspect your activities are contributing to your chest pain. If you have new symptoms such as fever, significant shortness of breath, fainting or other changes, return for re-evaluation. Otherwise, see your primary care doctor if no improvement over the next couple of weeks. Prescriptions: No Action methocarbamol 750 mg tablet 750 mg PO Q8H Qty: 10 0RF lidocaine [Aspercreme (lidocaine)] 4 % adhesive patch,medicated 1 patch topical BID PRN (Reason: pain) Qty: 10 0RF prednisone 20 mg tablet 20 mg PO BID Qty: 10 0RF allopurinol 100 mg tablet prednisone 50 mg tablet 50 mg PO DAILY Qty: 7 0RF Follow Up/Referrals: Provider,Not a Local [Primary Care Provider] - Stand Alone Forms: [employer] Info Instructions
--- NOTE | 2022-09-20 16:48 | CRLHL7_ITS ---
For Patients: As a result of the Century Cures Act, medical imaging exams and procedure reports are released immediately into your electronic medical record. You may view this report before your referring provider. If you have questions, please contact your health care provider. INDICATION: Chest pain. TECHNIQUE: Chest 2 views. COMPARISON: Chest radiograph 05/21/2021. FINDINGS: No focal consolidation, pleural effusion, or pneumothorax. Normal heart size and pulmonary vascularity. The bones are unremarkable. IMPRESSION: No acute cardiopulmonary findings. Dictated by Debra Ware MD @ 09/20/2022 6:09:28 PM (Electronically Signed)
[2022-09-20 16:58] VITALS: BP 102/62; PULSE 65; RESP 18; O2SAT 97
[2022-09-20 17:39] LABS: D Dimer Quantitative* 0.29 ug/ml (0.00-0.50)
[2022-09-20 17:47] LABS: Troponin I* < 0.01 ng/mL (0.01-0.04)
--- NOTE | 2022-09-20 18:15 | ED.NURSE ---
was found to have left . dr vargas explained findings and was verbally dc to home,
== END 2022-09-20 18:16 | disposition home or self-care (01) ==
PROVIDERS: Emergency Provider Emergency Medicine
DX: R07.9 Chest pain, unspecified (principal)
CPT/HCPCS: 36415; 71046; 84484; 85379; 93005; 99284; 99285

== ENCOUNTER 2022-12-01 23:07 | Emergency (ER) | payer OTHER, SELFPAY ==
[2022-12-01 23:14] VITALS: BP 139/87; PULSE 78; RESP 18; TEMP 36.8; O2SAT 99; BMI 25.8
--- NOTE | 2022-12-02 05:54 | ED.GENADULT ---
HPI - General Adult General Chief complaint: Extremity Pain/Injury, Lower Stated complaint: gout left knee Time Seen by Provider: 12/01/22 23:23 History of Present Illness HPI narrative: 37-year-old man presenting to the emergency department with left greater than right knee pain. Suspects flare of gout. Apparently does carry this diagnosis. Two visits ago to this emergency department was tapped from his right knee. This did not grow anything on culture in my review of records but I cannot verify what sort of crystals might have been present. Mr. Page notes there were crystals present. He does continue on 200 mg of allopurinol daily. Has had colchicine before but notes that prednisone has been much more effective. No fever. No trauma. Taking him marked amounts of time to get about due to pain. Related Data Home Medications Medication Instructions Recorded Confirmed allopurinol 100 mg tablet 200 mg PO DAILY 09/10/22 12/01/22 Allergies Allergy/AdvReac Type Severity Reaction Status Date / Time No Known Drug Allergies Allergy Verified 08/16/22 18:22 Review of Systems Status of ROS: Reports: 6 or more systems reviewed and unremarkable except as noted in History and below [facility] Medical History Gout Surgical History No significant past surgical history Social History Smoking Status: Never smoker Do you use any of these nicotine containing products: None Second hand tobacco smoke exposure: No How often do you have a drink containing alcohol: never How often do you have six or more drinks on one occasion: Never AUDIT-C Alcohol total score: 0 Non-prescribed substance use: denies use service: Yes Exam Narrative: Exam Narrative: I go to the exam room a couple of times and find Mr. Page ambulating very slowly from the bathroom. Clearly very uncomfortable. Returning to the exam bed in the room. Pain is exacerbated with any flexion or extension of his knees. There is mild effusion on the right knee and more so on the left. Both are tender to palpation. Fullness in the antigeniculate fossa. No erythematous changes or calor are evident. Const: Vital Signs, click to edit/add: Vital Signs - 24 hr 12/01/22 23:14 Temperature 98.2 F Pulse Rate [Right Pulse Oximeter] 78 Respiratory Rate 18 Blood Pressure [Ri ght Upper Arm] 139/87 Pulse Oximetry 99 Oxygen Delivery Me thod Room Air Documenting provider has reviewed patient's vital signs: yes Course Vital Signs Vital signs: Initial Vital Signs Temperature 98.2 F 12/01/22 23:14 Temperature Source Temporal Artery Scan 12/01/22 23:14 Pulse Rate 78 12/01/22 23:14 Respiratory Rate 18 12/01/22 23:14 Blood Pressure 139/87 12/01/22 23:14 Blood Pressure Mean 104 12/01/22 23:14 Blood Pressure Position Sitting 12/01/22 23:14 Pulse Oximetry 99 12/01/22 23:14 Oxygen Delivery Method 12/01/22 23:14 Vital Signs Temperature 98.2 F 12/01/22 23:14 Pulse Rate 78 12/01/22 23:14 Respiratory Rate 18 12/01/22 23:14 Blood Pressure 139/87 12/01/22 23:14 Pulse Oximetry 99 12/01/22 23:14 Oxygen Delivery Method 12/01/22 23:14 Temperature 98.2 F 12/01/22 23:14 Pulse Rate 78 12/01/22 23:14 Respiratory Rate 18 12/01/22 23:14 Blood Pressure 139/87 12/01/22 23:14 Pulse Oximetry 99 12/01/22 23:14 Oxygen Delivery Method 12/01/22 23:14 Medical Decision Making MDM Narrative Medical decision making narrative: Clearly joint effusions are present and likely contributing this pain. This appears to be consistent with prior diagnoses and Anjel is clear about affect medication. I do inquire though about degree of pain he is having and while says he normally would not feel this is necessary, this time he would appreciate a stronger pain medication as we discussed potential benefit of an opiate in addition to anti-inflammatory. Medical Records Medical records reviewed: Yes I reviewed the patient's medical records Discharge Plan Discharge Clinical Impression: Knee joint pain, Gout flare Patient Disposition: Home, Self-Care Condition: Stable Additional Instructions: Follow-up in primary care as planned discussed longer-term treatment/management. Verify also the kind of crystals that were found. I am hoping you (are) feeling better by tomorrow morning though I do not expect full resolution. Return otherwise for uncontrolled pain, associated fever. Can take up to 800 mg of ibuprofen per dose if necessary. Percocet and prednisone from [facility]. Take the prednisone as 60 mg daily for 3 days then 40 mg daily for 4 days. Prescriptions: No Action allopurinol 100 mg tablet 200 mg PO DAILY Follow Up/Referrals: Provider,Not a Local [Primary Care Provider] - Stand Alone Forms: [employer] Info Instructions
== END 2022-12-02 00:03 | disposition home or self-care (01) ==
PROVIDERS: Emergency Provider Family Medicine
DX: M25.561 Pain in right knee (principal); M10.9 Gout, unspecified
CPT/HCPCS: 99282; 99283

== ENCOUNTER 2023-03-17 16:46 | Emergency (ER) | payer OTHER, SELFPAY ==
[2023-03-17 16:51] VITALS: BP 126/68; PULSE 82; RESP 16; TEMP 36.7; O2SAT 99; BMI 28.8
--- NOTE | 2023-03-17 17:05 | CRLHL7_ITS ---
For Patients: As a result of the Cures Act, medical imaging exams and procedure reports are released immediately into your electronic medical record. You may view this report before your referring provider. If you have questions, please contact your health care provider. INDICATION: Pain and crepitus after injury. TECHNIQUE: Three views chest and right ribs. IMPRESSION: No fracture. No pneumothorax. No effusion. No acute cardiopulmonary disease. Dictated by Kemar Early MD @ 03/17/2023 5:22:07 PM (Electronically Signed)
--- NOTE | 2023-03-17 17:06 | ED.GENADULT ---
HPI - General Adult General Chief complaint: Rib Pain Stated complaint: Ribs popping out of place Time Seen by Provider: 03/17/23 17:02 History of Present Illness HPI narrative: This 37-year-old male comes in reporting pain in his right lateral lower ribs an of sensation that the ribs pop out of place. If he raises his arm up above his head then and the ribs moved back into better position. He does not report any specific injury event but does do lots of physical activity and is involved in [employer]. He does not report any shortness of breath. He is otherwise in good health. Related Data Home Medications Medication Instructions Recorded Confirmed allopurinol 100 mg tablet 300 mg PO DAILY 09/10/22 03/17/23 Allergies Allergy/AdvReac Type Severity Reaction Status Date / Time No Known Drug Allergies Allergy Verified 03/17/23 16:57 Review of Systems Status of ROS: Reports: 10 or more systems reviewed and unremarkable except as noted in History and below Narrative: Constitutional: No fevers, no weight gain or loss. Eyes: No discharge. No vision changes. HENT: No congestion, no sore throat, no ear pain. Cardiovascular: No chest pain, no palpitations. Respiratory: No shortness of breath, no wheezes, no cough. Gastrointestinal: No abdominal pain, no vomiting, no diarrhea. Genitourinary: No dysuria, no hematuria. Musculoskeletal: Normal range of motion. Skin: No rashes, no pruritis. Neurological: No dizziness, weakness, sensory change, speech change. Endo/Heme/Allergies: No bruising or bleeding. No polydipsia. Pysch: no suicidality, no anxiety, no insomnia. All other systems reviewed and are negative. [facility] Medical History Gout ?M10.9 - Gout, unspecified (ICD-10) Surgical History No significant past surgical history Social History Smoking Status: Never smoker Do you use any of these nicotine containing products: None Second hand tobacco smoke exposure: No How often do you have a drink containing alcohol: never How often do you have six or more drinks on one occasion: Never AUDIT-C Alcohol total score: 0 Non-prescribed substance use: denies use service: Yes Exam Narrative: Exam Narrative: Constitutional: Well-developed, well-nourished, no acute distress. HEENT: Normocephalic, atraumatic. Neck: Normal range of motion. Nontender. Supple. Heart: Regular. No murmurs. Normal rate. Intact distal pulses. Lungs: Clear to auscultation. No wheezes, rhonchi, or rales. Chest: Pain in the right lateral lower ribs. No displacement of ribs palpated or observe Abdomen: Normal bowel sounds. Nontender. No rebound tenderness. Genitalia: Deferred. Back: No midline tenderness. Normal range of motion. Extremities: Normal range of motion. No injury. Skin: Intact. No rash. Warm. No erythema or pallor. Neurologic: No altered sensation. No weakness. Alert and oriented. Psychiatric: No suicidality. No anxiety or depression. No insomnia. Nursing notes and vitals signs are reviewed. Const: Vital Signs, click to edit/add: Vital Signs - 24 hr 03/17/23 16:51 Temperature 98.0 F Pulse Rate [Left P ulse Oximeter] 82 Respiratory Rate 16 Blood Pressure [Ri ght Upper Arm] 126/68 Pulse Oximetry 99 Oxygen Delivery Me thod Room Air Course Vital Signs Vital signs: Initial Vital Signs Temperature 98.0 F 03/17/23 16:51 Temperature Source Temporal Artery Scan 03/17/23 16:51 Pulse Rate 82 03/17/23 16:51 Respiratory Rate 16 03/17/23 16:51 Blood Pressure 126/68 03/17/23 16:51 Blood Pressure Mean 87 03/17/23 16:51 Blood Pressure Position Sitting 03/17/23 16:51 Pulse Oximetry 99 03/17/23 16:51 Oxygen Delivery Method Room Air 03/17/23 16:51 Vital Signs Temperature 98.0 F 03/17/23 16:51 Pulse Rate 82 03/17/23 16:51 Respiratory Rate 16 03/17/23 16:51 Blood Pressure 126/68 03/17/23 16:51 Pulse Oximetry 99 03/17/23 16:51 Oxygen Delivery Method Room Air 03/17/23 16:51 Temperature 98.0 F 03/17/23 16:51 Pulse Rate 82 07/04/23 16:51 Respiratory Rate 16 03/17/23 16:51 Blood Pressure 126/68 03/17/23 16:51 Pulse Oximetry 99 03/17/23 16:51 Oxygen Delivery Method Room Air 03/17/23 16:51 Medical Decision Making MDM Narrative Medical decision making narrative: This patient comes in reporting pain is right lateral lower ribs and of feeling that his rib shifts out of its proper position temporarily. He arrives with normal vital signs and has normal-sounding lungs and exam. Chest x-ray and rib detail show no sign of fracture or pulmonary abnormalities. The patient received a rib belt and a prescription for Toradol. I did also provide a return to Imaging Data Chest x-ray: Radiologist's impression: No fracture. No pneumothorax. No effusion. No acute cardiopulmonary disease. Discharge Plan Discharge Clinical Impression: Rib injury Patient Disposition: Home, Self-Care Condition: Unchanged Additional Instructions: wear rib belt as needed. Increase activity as tolerated. Follow up with MD return if worsening. Prescriptions: No Action allopurinol 100 mg tablet 300 mg PO DAILY Follow Up/Referrals: America Card DO [Primary Care Provider] - Stand Alone Forms: [employer] Info Instructions
== END 2023-03-17 17:45 | disposition home or self-care (01) ==
PROVIDERS: Emergency Provider Emergency Medicine Emergency Medical Services; PCP Family Medicine
DX: S29.9XXA Unspecified injury of thorax, initial encounter (principal); X50.1XXA Overexertion from prolonged static or awkward postures, initial encounter
CPT/HCPCS: 71101; 99283; 99284

== ENCOUNTER 2023-04-20 14:40 | Emergency (ER) | payer OTHER, SELFPAY ==
[2023-04-20 14:42] VITALS: BP 119/84; PULSE 91; RESP 20; TEMP 37.4; O2SAT 100; BMI 30.1
--- NOTE | 2023-04-20 15:59 | ED_ITS ---
HPI - General Adult General Time Seen by Provider: 15:59 Date Seen: 04/20/23 Chief complaint: Extremity Pain/Injury, Lower Stated complaint: Gout flare up in feet Time Seen by Provider: 04/20/23 15:59 Source: patient, RN notes reviewed and old records reviewed Mode of arrival: ambulatory Limitations: no limitations History of Present Illness HPI narrative: 37y/o male with gout all over with pain. Feet and left hand feel swollen. Patient taking ibuprofen for this. Normal sees Dr. Gale normally. No other medical problems. Taking allopurinol. Related Data Home Medications Medication Instructions Recorded Confirmed allopurinol 100 mg tablet 300 mg PO DAILY 09/10/22 04/20/23 Allergies Allergy/AdvReac Type Severity Reaction Status Date / Time No Known Drug Allergies Allergy Verified 04/20/23 14:47 Review of Systems Status of ROS: Reports: 10 or more systems reviewed and unremarkable except as noted in History and below [facility] Medical History Gout ?M10.9 - Gout, unspecified (ICD-10) Surgical History No significant past surgical history Social History Smoking Status: Never smoker Do you use any of these nicotine containing products: None Second hand tobacco smoke exposure: No How often do you have a drink containing alcohol: never How often do you have six or more drinks on one occasion: Never AUDIT-C Alcohol total score: 0 Non-prescribed substance use: denies use service: Yes Exam Narrative: Exam Narrative: General: Well-developed and well-nourished, no acute distress Head: Atraumatic and normocephalic Eyes: Pupils are equal reactive, extraocular motions intact, conjunctiva clear ENT: External nose and ears are normal, posterior pharynx without erythema or exudate Neck: No midline cervical tenderness, full spontaneous range of motion the neck, trachea midline, no adenopathy Heart: Regular rate and rhythm no murmurs or thrills Lungs: Clear to auscultation bilaterally without wheezes or crackles Abdomen: Soft, nontender, nondistended with active bowel sounds Musculoskeletal: Swelling of the right hand MCP of the index, middle, and ring fingers. Swelling of the 1st metatarsal on the right. Neurologic: Awake, alert, and oriented x3, no gross focal neurologic deficits, cranial nerves intact as tested Psych: Mood and affect are appropriate Skin: No rashes Const: Vital Signs, click to edit/add: Vital Signs - 24 hr 04/20/23 14:42 Temperature 99.3 F Pulse Rate [Pulse Oximeter] 91 Respiratory Rate 20 Blood Pressure [Ri ght Upper Arm] 119/84 Pulse Oximetry 100 Oxygen Delivery Me thod Room Air Course Course Hospital Course: Patient seen examined, prior records are reviewed. Patient presents today with swelling of the left hand as well as bilateral feet, history of gout and this feels similar. Discussed disposition and treatment. Patient reports that Toradol works well for him and requests this, says prednisone does not work as well. Toradol IM given in the emergency department and oral Toradol prescribed. Patient is stable for discharge. Did consider septic arthritis be given widespread swelling in history, this most likely does represent gout. Vital Signs Vital signs: Initial Vital Signs Temperature 99.3 F 04/20/23 14:42 Temperature Source Temporal Artery Scan 04/20/23 14:42 Pulse Rate 91 04/20/23 14:42 Pulse Rhythm Regular 04/20/23 14:42 Pulse Strength 3+ Normal 04/20/23 14:42 Respiratory Rate 20 04/20/23 14:42 Blood Pressure 119/84 04/20/23 14:42 Blood Pressure Mean 95 04/20/23 14:42 Blood Pressure Position Sitting 04/20/23 14:42 Pulse Oximetry 100 04/20/23 14:42 Oxygen Delivery Method Room Air 04/20/23 14:42 Vital Signs Temperature 99.3 F 04/20/23 14:42 Pulse Rate 91 04/20/23 14:42 Respiratory Rate 20 04/20/23 14:42 Blood Pressure 119/84 04/20/23 14:42 Pulse Oximetry 100 04/20/23 14:42 Oxygen Delivery Method Room Air 04/20/23 14:42 Temperature 99.3 F 04/20/23 14:42 Pulse Rate 91 04/20/23 14:42 Respiratory Rate 20 04/20/23 14:42 Blood Pressure 119/84 04/20/23 14:42 Pulse Oximetry 100 04/20/23 14:42 Oxygen Delivery Method Room Air 04/20/23 14:42 Medical Decision Making Medical Records Medical records reviewed: Yes I reviewed the patient's medical records Lab Data Lab results reviewed: Yes I reviewed the patient's lab results Discharge Plan Discharge Clinical Impression: Gout Patient Disposition: Home, Self-Care Condition: Stable Instructions: Low Purine Diet (ED), Gout (ED) Activity Level: Activity as Tolerated Prescriptions: No Action allopurinol 100 mg tablet 300 mg PO DAILY Follow Up/Referrals: America Card DO [Primary Care Provider] - Stand Alone Forms: [employer] Info Instructions
[2023-04-20] MEDS: KETOROLAC 30 MG/ML inj IM (16:44)
== END 2023-04-20 17:43 | disposition home or self-care (01) ==
LOC: ED 16:42
PROVIDERS: Emergency Provider Family Medicine; PCP Family Medicine
DX: M10.9 Gout, unspecified (principal)
CPT/HCPCS: 96372; 99283; J1885

== ENCOUNTER 2023-05-09 13:31 | Emergency (ER) | payer OTHER, SELFPAY ==
[2023-05-09 14:02] VITALS: BP 133/92; PULSE 68; RESP 16; TEMP 36.4; O2SAT 97; BMI 29.4
[2023-05-09] MEDS: KETOROLAC 30 MG/ML inj IM (14:23)
--- NOTE | 2023-05-09 14:32 | ED_ITS ---
HPI - General Adult General Date Seen: 05/09/23 Chief complaint: Extremity Pain/Injury, Lower Stated complaint: Gout flareup R knee Time Seen by Provider: 05/09/23 13:59 Source: patient Mode of arrival: ambulatory Limitations: no limitations History of Present Illness HPI narrative: Patient is a 37-year-old male with history of gout currently taking allopurinol presented emergency department for right knee pain. He states he has been having issues got for several years now and has been intermittent in nature. Says he has been taking his allopurinol were digitally and has not missed any doses. Him is primary care provider trying a final note while the gout keeps coming back despite being on the correct medication. 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 Pain started about 3 or 4 days ago when he was open to get better on its own but it is getting worse he states. Denies any fevers or chills. States this feels exactly like his previous gout. Denies any injuries to the knee Related Data Home Medications Medication Instructions Recorded Confirmed allopurinol 100 mg tablet 300 mg PO DAILY 09/10/22 04/20/23 Previous Rx's Medication Instructions Recorded ketorolac 10 mg tablet 10 mg PO TID 5 days #15 tabs 05/09/23 ondansetron 4 mg disintegrating 4 mg PO Q6H #20 tabs 05/09/23 tablet Allergies Allergy/AdvReac Type Severity Reaction Status Date / Time No Known Drug Allergies Allergy Verified 04/20/23 14:47 Review of Systems Narrative: ROS is otherwise negative unless stated in HPI PFSH PFSH Medical History Gout ?M10.9 - Gout, unspecified (ICD-10) Surgical History No significant past surgical history Social History Smoking Status: Never smoker Do you use any of these nicotine containing products: None Second hand tobacco smoke exposure: No How often do you have a drink containing alcohol: never How often do you have six or more drinks on one occasion: Never AUDIT-C Alcohol total score: 0 Non-prescribed substance use: denies use service: Yes Exam Narrative: Exam Narrative: Const: Well-nourished, Well-developed, in mild distress Eyes: PERRL, no conjunctival injection, and symmetrical lids ENMT: Atraumatic external nose and ears. Moist mucous membranes. MSK:Extremities w/o deformity, decreased range of motion to the right knee secondary to pain. Mild swelling noted to the right knee. Skin: Warm, Dry. No rashes or lesions. Neuro: Normal Muscle tone, No focal neurological deficits. Psych: Awake, Alert, & Oriented x3. Appropriate mood and affect. Const: Vital Signs, click to edit/add: Vital Signs - 24 hr 05/09/23 14:02 Temperature 97.6 F Pulse Rate [Right Pulse Oximeter] 68 Respiratory Rate 16 Blood Pressure [Ri ght Upper Arm] 133/92 H Pulse Oximetry 97 Oxygen Delivery Me thod Room Air Course Vital Signs Vital signs: Initial Vital Signs Temperature 97.6 F 05/09/23 14:02 Temperature Source Temporal Artery Scan 05/09/23 14:02 Pulse Rate 68 05/09/23 14:02 Pulse Rhythm Regular 05/09/23 14:02 Respiratory Rate 16 05/09/23 14:02 Blood Pressure 133/92 H 05/09/23 14:02 Blood Pressure Mean 105 05/09/23 14:02 Blood Pressure Position Sitting 05/09/23 14:02 Pulse Oximetry 97 05/09/23 14:02 Oxygen Delivery Method Room Air 05/09/23 14:02 Vital Signs Temperature 97.6 F 05/09/23 14:02 Pulse Rate 68 05/09/23 14:02 Respiratory Rate 16 05/09/23 14:02 Blood Pressure 133/92 H 05/09/23 14:02 Pulse Oximetry 97 05/09/23 14:02 Oxygen Delivery Method Room Air 05/09/23 14:02 Temperature 97.6 F 05/09/23 14:02 Pulse Rate 68 05/09/23 14:02 Respiratory Rate 16 05/09/23 14:02 Blood Pressure 133/92 H 05/09/23 14:02 Pulse Oximetry 97 05/09/23 14:02 Oxygen Delivery Method Room Air 05/09/23 14:02 Medical Decision Making MDM Narrative Medical decision making narrative: Patient is a 37-year-old male presenting for right knee pain for the past 3-4 days. He thought the pain would improve but it has not. States he feels like his previous gout. He has been taking his allopurinol as directed. He has been having issues with gout for several years now. Patient states usually Toradol improves symptoms. Will give him a dose of Toradol. Has also some swelling to the knee in we will do an arthrocentesis. I did attempt an arthrocentesis and was unable to drain any fluids despite clearly being within the joint capsule. Patient will thus be discharged home. He will be given a dose of colchicine prior to discharge. He states he thinks he might have had in the past has been tugging cause some abdominal symptoms so I will give him a dose of Zofran also. Also give him 3 doses of colchicine to take home at 0.6 mg apiece to take over the next 3 hours. He is agreeable to this plan. Toradol and Zofran will be sent to his pharmacy. Discharge Plan Discharge Clinical Impression: Gout Qualifiers: Gout site: knee Gout etiology: unspecified cause Chronicity: acute Laterality: right Qualified Code(s): M10.9 - Gout, unspecified Patient Disposition: Home, Self-Care Condition: Stable Instructions: Low Purine Diet (ED) Additional Instructions: Take the colchicine 0.6 mg every hour for the next 3 hours. Take Toradol as needed for pain. Return for new or worsening symptoms use the Zofran as needed for nausea. Prescriptions: New ondansetron 4 mg tablet,disintegrating 4 mg PO Q6H Qty: 20 0RF ketorolac 10 mg tablet 10 mg PO TID 5 Days Qty: 15 0RF No Action allopurinol 100 mg tablet 300 mg PO DAILY Follow Up/Referrals: America Card DO [Primary Care Provider] - Stand Alone Forms: [employer] Info Instructions
[2023-05-09] MEDS: COLCHICINE 0.6 MG CAPSULE 1.2 MG PO (15:57)
[2023-05-09] MEDS: ONDANSETRON ODT 4 MG TAB PO (16:03)
== END 2023-05-09 16:15 | disposition home or self-care (01) ==
PROVIDERS: Emergency Provider Student in an Organized Health Care Education/Training Program; PCP Family Medicine
DX: M10.9 Gout, unspecified (principal)
CPT/HCPCS: 20610; 99283; 99284; A9270; J1885

== ENCOUNTER 2023-05-25 08:27 | Emergency (ER) | payer OTHER, SELFPAY ==
[2023-05-25 08:36] VITALS: BP 125/77; PULSE 101; RESP 18; TEMP 36.6; O2SAT 97; BMI 30.1
--- NOTE | 2023-05-25 09:30 | ED_ITS ---
HPI - General Adult General Stated complaint: Gout Time Seen by Provider: 05/25/23 08:56 Source: patient Mode of arrival: ambulatory Limitations: no limitations History of Present Illness HPI narrative: Patient is a 38-year-old male with a history of gout and frequent flare-ups, takes allopurinol, multiple visits recently with prescriptions for Toradol as he says this typically helps with his symptoms. He has previously said that he did not find prednisone helpful but tells me that prednisone does help. He presents today with continued problems with right knee pain. He does not have any effusion or redness. He notes that he is very active with martial arts, is frustrated because his symptoms prevent him from participating in things that he enjoys. He does have an appointment with his primary care doctor next week. He has seen Rheumatology but it has been for 5 years now. Related Data Home Medications Medication Instructions Recorded Confirmed allopurinol 100 mg tablet 300 mg PO DAILY 09/10/22 04/20/23 Previous Rx's Medication Instructions Recorded ketorolac 10 mg tablet 10 mg PO TID 5 days #15 tabs 05/09/23 ondansetron 4 mg disintegrating 4 mg PO Q6H #20 tabs 05/09/23 tablet prednisone 20 mg tablet 20 mg PO BID #14 tabs 05/25/23 Allergies Allergy/AdvReac Type Severity Reaction Status Date / Time No Known Drug Allergies Allergy Verified 04/20/23 14:47 [facility] Medical History Gout ?M10.9 - Gout, unspecified (ICD-10) Surgical History No significant past surgical history Social History Smoking Status: Never smoker Do you use any of these nicotine containing products: None Second hand tobacco smoke exposure: No How often do you have a drink containing alcohol: never How often do you have six or more drinks on one occasion: Never AUDIT-C Alcohol total score: 0 Non-prescribed substance use: denies use service: Yes Exam Narrative: Exam Narrative: Vital signs reviewed In general, alert, pleasant cooperative male. Disheveled. Joints appear normal, no edema, erythema. Skin: Warm and dry, no apparent rashes. Const: Vital Signs, click to edit/add: Vital Signs - 24 hr 05/25/23 08:36 Temperature 97.9 F Pulse Rate [Right Pulse Oximeter] 101 H Respiratory Rate 18 Blood Pressure [Ri ght Upper Arm] 125/77 Pulse Oximetry 97 Oxygen Delivery Me thod Room Air Documenting provider has reviewed patient's vital signs: yes Course Course ED Course: Discussed with him I think primary care follow-up next week is reasonable, I do think it might be reasonable also to follow up again with rheumatology on the off chance that there is an alternate diagnosis that is causing him to have joint pain, unrelated to gout. For today, will give a shot of Toradol which he typically finds very helpful. I am sending him home with a prescription for Toradol orally as well as a 7 day course of prednisone. Vital Signs Vital signs: Initial Vital Signs Temperature 97.9 F 05/25/23 08:36 Temperature Source Temporal Artery Scan 05/25/23 08:36 Pulse Rate 101 H 05/25/23 08:36 Respiratory Rate 18 05/25/23 08:36 Blood Pressure 125/77 05/25/23 08:36 Blood Pressure Mean 93 05/25/23 08:36 Blood Pressure Position Sitting 05/25/23 08:36 Pulse Oximetry 97 05/25/23 08:36 Oxygen Delivery Method Room Air 05/25/23 08:36 Vital Signs Temperature 97.9 F 05/25/23 08:36 Pulse Rate 101 H 05/25/23 08:36 Respiratory Rate 18 05/25/23 08:36 Blood Pressure 125/77 05/25/23 08:36 Pulse Oximetry 97 05/25/23 08:36 Oxygen Delivery Method Room Air 05/25/23 08:36 Temperature 97.9 F 05/25/23 08:36 Pulse Rate 101 H 05/25/23 08:36 Respiratory Rate 18 05/25/23 08:36 Blood Pressure 125/77 05/25/23 08:36 Pulse Oximetry 97 05/25/23 08:36 Oxygen Delivery Method Room Air 05/25/23 08:36 Discharge Plan Discharge Clinical Impression: Gout Patient Disposition: Home, Self-Care Condition: Stable Instructions: Gout (ED) Additional Instructions: Follow-up with your primary doctor next week as planned. Consider repeat evaluation with rheumatology as well. Prednisone as prescribed, [employer] machine was out so I had to send this to your pharmacy. Prescriptions: New prednisone 20 mg tablet 20 mg PO BID Qty: 14 0RF No Action ondansetron 4 mg tablet,disintegrating 4 mg PO Q6H Qty: 20 0RF ketorolac 10 mg tablet 10 mg PO TID 5 Days Qty: 15 0RF allopurinol 100 mg tablet 300 mg PO DAILY Follow Up/Referrals: America Card DO [Primary Care Provider] - Stand Alone Forms: [employer] Info Instructions
[2023-05-25] MEDS: KETOROLAC 30 MG/ML inj IM (09:41)
== END 2023-05-25 09:44 | disposition home or self-care (01) ==
LOC: ED 09:18
PROVIDERS: Emergency Provider Emergency Medicine; PCP Family Medicine
DX: M10.9 Gout, unspecified (principal)
CPT/HCPCS: 96372; 99283; J1885

== ENCOUNTER 2023-06-23 00:13 | Emergency (ER) | payer OTHER, SELFPAY ==
[2023-06-23 00:25] VITALS: BP 127/71; PULSE 75; RESP 16; TEMP 36.7; O2SAT 98; BMI 30.1
[2023-06-23] MEDS: CYCLOBENZAPRINE HCL 10 MG TABLET PO (00:33)
[2023-06-23] MEDS: KETOROLAC 30 MG/ML inj IM (00:34)
--- NOTE | 2023-06-23 00:39 | ED_ITS ---
HPI - General Adult General Date Seen: 06/23/23 Chief complaint: Shoulder Injury/Pain Stated complaint: right shoulder pain Time Seen by Provider: 06/23/23 00:16 Source: patient Mode of arrival: ambulatory Limitations: no limitations History of Present Illness HPI narrative: Patient is a 38 year male presenting for right shoulder and back pain. Patient states he has been dealing with this issue with 3 new years now and has seen specialists and gone to physical therapy for it. States the pain is medial to the lower portion of the scapula. States the pain comes on randomly and nothing really cause it to flare up that he can think of. States it is difficult for him to move his shoulder because of the pain. Has been taking Tylenol and ibuprofen for pain with minimal improvement in his symptoms. Denies any numbness or weakness. Denies any recent trauma to the shoulder or back. Related Data Home Medications Medication Instructions Recorded Confirmed allopurinol 100 mg tablet 300 mg PO DAILY 09/10/22 04/20/23 Previous Rx's Medication Instructions Recorded ketorolac 10 mg tablet 10 mg PO TID 5 days #15 tabs 05/09/23 ondansetron 4 mg disintegrating 4 mg PO Q6H #20 tabs 05/09/23 tablet prednisone 20 mg tablet 20 mg PO BID #14 tabs 05/25/23 Allergies Allergy/AdvReac Type Severity Reaction Status Date / Time No Known Drug Allergies Allergy Verified 04/20/23 14:47 Review of Systems 2 Narrative: Const: Well-nourished, Well-developed, in mild distress Eyes: PERRL, no conjunctival injection, and symmetrical lids HENT: Atraumatic external nose and ears. Moist mucous membranes. MSK:Extremities w/o deformity, Normal Active ROM. Tenderness to palpation noted medial to the inferior aspect of the right scapula Skin: Warm, Dry. No rashes or lesions. Neuro: Normal Muscle tone, No focal neurological deficits. Psych: Awake, Alert, & Oriented x3. Appropriate mood and affect. [facility] Medical History Gout ?M10.9 - Gout, unspecified (ICD-10) Surgical History No significant past surgical history Social History Smoking Status: Never smoker Do you use any of these nicotine containing products: None Second hand tobacco smoke exposure: No How often do you have a drink containing alcohol: never How often do you have six or more drinks on one occasion: Never AUDIT-C Alcohol total score: 0 Non-prescribed substance use: denies use service: Yes Exam Const: Vital Signs, click to edit/add: Vital Signs - 24 hr 06/23/23 00:25 Temperature 98.0 F Pulse Rate [Left P ulse Oximeter] 75 Respiratory Rate 16 Blood Pressure [Ri ght Upper Arm] 127/71 Pulse Oximetry 98 Oxygen Delivery Me thod Room Air Course Vital Signs Vital signs: Initial Vital Signs Temperature 98.0 F 06/23/23 00:25 Temperature Source Temporal Artery Scan 06/23/23 00:25 Pulse Rate 75 06/23/23 00:25 Respiratory Rate 16 06/23/23 00:25 Blood Pressure 127/71 06/23/23 00:25 Blood Pressure Mean 89 06/23/23 00:25 Blood Pressure Position Sitting 06/23/23 00:25 Pulse Oximetry 98 06/23/23 00:25 Oxygen Delivery Method Room Air 06/23/23 00:25 Vital Signs Temperature 98.0 F 06/23/23 00:25 Pulse Rate 75 06/23/23 00:25 Respiratory Rate 16 06/23/23 00:25 Blood Pressure 127/71 06/23/23 00:25 Pulse Oximetry 98 06/23/23 00:25 Oxygen Delivery Method Room Air 06/23/23 00:25 Temperature 98.0 F 06/23/23 00:25 Pulse Rate 75 06/23/23 00:25 Respiratory Rate 16 06/23/23 00:25 Blood Pressure 127/71 06/23/23 00:25 Pulse Oximetry 98 06/23/23 00:25 Oxygen Delivery Method Room Air 06/23/23 00:25 Medical Decision Making MDM Narrative Medical decision making narrative: Patient is a 38-year-old male presenting for back pain this medial to his right scapular ordered. The areas very tense or he states the pain is. I believe he is having a muscle spasm that is causing the pain. He was given Toradol and Flexeril for the symptoms. After this he is feeling better. I do not believe any imaging is necessary assisted chronic issue. It he will be discharged home. He is agreeable with this plan. Discharge Plan Discharge Clinical Impression: Back pain Qualifiers: Back pain location: thoracic back pain Chronicity: acute Back pain laterality: right Qualified Code(s): M54.6 - Pain in thoracic spine Patient Disposition: Home, Self-Care Condition: Improved Instructions: Muscle Spasm (ED) Additional Instructions: I believe you back pain is related to muscle spasms. Take the Flexeril as prescribed. You can also take Tylenol and ibuprofen for pain. Return for new or worsening symptoms Prescriptions: No Action ondansetron 4 mg tablet,disintegrating 4 mg PO Q6H Qty: 20 0RF ketorolac 10 mg tablet 10 mg PO TID 5 Days Qty: 15 0RF prednisone 20 mg tablet 20 mg PO BID Qty: 14 0RF allopurinol 100 mg tablet 300 mg PO DAILY Follow Up/Referrals: America Card DO [Primary Care Provider] - Stand Alone Forms: [employer] Info Instructions
[2023-06-23 01:22] VITALS: BP 118/69; PULSE 69; RESP 16
== END 2023-06-23 01:23 | disposition home or self-care (01) ==
PROVIDERS: Emergency Provider Student in an Organized Health Care Education/Training Program; PCP Family Medicine
DX: M54.6 Pain in thoracic spine (principal)
CPT/HCPCS: 96372; 99282; 99284; A9270; J1885

== ENCOUNTER 2023-06-27 07:32 | Emergency (ER) | payer OTHER, SELFPAY ==
[2023-06-27 07:36] VITALS: BP 133/84; PULSE 75; RESP 18; TEMP 36.6; O2SAT 97; BMI 30.1
[2023-06-27] MEDS: KETOROLAC 30 MG/ML inj IM (08:44)
--- NOTE | 2023-06-27 10:07 | ED.LOWEXIN ---
HPI - Extremity Injury (Lower) General Date Seen: 06/27/23 Chief Complaint: Extremity Pain/Injury, Lower Stated Complaint: right knee gout flare up Time Seen by Provider: 06/27/23 07:46 History of Present Illness HPI Narrative: This is a pleasant 38-year-old male with a past medical history including gout, back pain, who presents to the ER today with an acute episode of right knee pain and swelling that is reminiscent for him of an episode of gout. He has had gout since several years ago. It started and was 1st diagnosed while he was in the [employer]. He tried to cut back on alcohol consumption and and red meat consumption but even since then he has had recurrent flares of gout. He has had multiple flares over the past few months and recalls that he was seen here in the ER in May for flare of gout is in he. He has been treating his gout with chronic use of allopurinol. He has been very restorationism and fastidious about taking every dose. He also uses Toradol when he has flares of gout and was treated with a course of prednisone last time when he had a flare gout. His current knee pain began when he woke up in the morning 2 days ago and has become progressively more swollen and painful. He does do mixed martial arts and jujitsu, but does not have any recent injury to the knee. No trauma. He has not had any redness or warmth of the knee. No fever or chills or other infectious symptoms. He has been working with his primary care provider, in the [facility], to try to get control of his gout. She has told him that she will have to refer him to Rheumatology the does get better. That is not yet arranged. Related Data Home Medications Medication Instructions Recorded Confirmed allopurinol 100 mg tablet 300 mg PO DAILY 09/10/22 06/27/23 Previous Rx's Medication Instructions Recorded ondansetron 4 mg disintegrating 4 mg PO Q6H #20 tabs 05/09/23 tablet prednisone 20 mg tablet 20 mg PO BID #14 tabs 05/25/23 prednisone 20 mg tablet 20 mg PO QDAY Gout #12 tabs 06/26/23 ketorolac 10 mg tablet 10 mg PO Q8H PRN pain #14 tabs 06/27/23 Allergies Allergy/AdvReac Type Severity Reaction Status Date / Time No Known Drug Allergies Allergy Verified 06/26/23 14:14 [facility] Medical History Gout ?M10.9 - Gout, unspecified (ICD-10) Surgical History No significant past surgical history Social History Smoking Status: Never smoker Do you use any of these nicotine containing products: None Second hand tobacco smoke exposure: No How often do you have a drink containing alcohol: never How often do you have six or more drinks on one occasion: Never AUDIT-C Alcohol total score: 0 Non-prescribed substance use: denies use service: Yes Exam Narrative: Exam Narrative: Constitutional: Appears well-developed and well-nourished. Alert. Conversant. Uncomfortable but conversant. Non toxic. HENT: Head: Atraumatic. Nose: Nose normal. Mouth/Throat: Oral mucosa is clear and moist. no trismus. Pharynx normal. Tonsils symmetric. No tonsillar enlargement, erythema, or exudate. Eyes: Conjunctivae normal. EOM normal. Pupils equal, round, and reactive to light. No scleral icterus. Neck: Normal range of motion. Neck supple. No tracheal deviation present. Cardiovascular: Normal rate, regular rhythm. No gallop. No friction rub. No murmur heard. Symmetric radial artery pulses Pulmonary/Chest: Effort normal. No stridor. No respiratory distress. No wheezes. No rales. No rhonchi . No tenderness. Abdominal: Soft. Bowel sounds normal. No distension. No mass. No tenderness. No rebound. No guarding. Musculoskeletal: RUE: Normal range of motion. No tenderness. No deformity LUE: Normal range of motion. No tenderness. No deformity RLE: He has pain with swelling and tenderness of the right knee. There is a palpable tense effusion. There is no surrounding erythema, warmth. Range of motion in the knee is limited to about 20? of flexion because of discomfort with further flexion. More proximally has no tenderness in the quad, femur, hamstring. Hip is nontender. Calf, kumar, lower leg, ankle, foot are nontender. Intact distal sensory and motor function. Strong DP and PT pulse. Normal distal cap refill. LLE: Normal range of motion. No edema. No tenderness. No deformity Lymph: No cervical adenopathy. Neurological: Alert and oriented to person, place, and time. Normal strength. CN II-VII intact. No sensory deficit. GCS eye subscore is 4. GCS verbal subscore is 5. GCS motor subscore is 6. Normal coordination Skin: Skin is warm and dry. No rash noted. No pallor. Normal capillary refill. Psychiatric: Normal mood. Normal affect. Const: Vital Signs, click to edit/add: Vital Signs - 24 hr 06/27/23 07:36 Temperature 97.9 F Pulse Rate [Pulse Oximeter] 75 Respiratory Rate 18 Blood Pressure [Ri ght Upper Arm] 133/84 Pulse Oximetry 97 Oxygen Delivery Me thod Room Air Course Vital Signs Vital signs: Initial Vital Signs Temperature 97.9 F 06/27/23 07:36 Temperature Source Temporal Artery Scan 06/27/23 07:36 Pulse Rate 75 06/27/23 07:36 Respiratory Rate 18 06/27/23 07:36 Blood Pressure 133/84 06/27/23 07:36 Blood Pressure Mean 100 06/27/23 07:36 Blood Pressure Position Supine 06/27/23 07:36 Pulse Oximetry 97 06/27/23 07:36 Oxygen Delivery Method Room Air 06/27/23 07:36 Vital Signs Temperature 97.9 F 06/27/23 07:36 Pulse Rate 75 06/27/23 07:36 Respiratory Rate 18 06/27/23 07:36 Blood Pressure 133/84 06/27/23 07:36 Pulse Oximetry 97 06/27/23 07:36 Oxygen Delivery Method Room Air 06/27/23 07:36 Temperature 97.9 F 06/27/23 07:36 Pulse Rate 75 06/27/23 07:36 Respiratory Rate 18 06/27/23 07:36 Blood Pressure 133/84 06/27/23 07:36 Pulse Oximetry 97 06/27/23 07:36 Oxygen Delivery Method Room Air 06/27/23 07:36 MDM - Extremity Injury (Lower) MDM Narrative Medical decision making narrative: This is a pleasant 38-year-old gentleman with a history of gout presenting to the ER today with an acute flare of right knee joint pain with an associated right knee effusion. He has a long history of gout presenting similarly. Differential would include non gouty arthritis such as septic arthritis however he has as no fever, no chills, no redness or warmth. Low suspicion for septic arthritis. We discussed options for managing gout. He needs better pain control than what he has available at home so requested Toradol to be given here in the ER. He did receive this with some improvement in pain. He also has a fairly large effusion which is causing discomfort for him. After discussion of risks and benefits he elected to proceed with arthrocentesis. This was performed as noted in the procedure note and we aspirated on 30 mL of yellow semi opaque fluid. This fluid is sent for cell count and culture and crystal analysis. Unfortunately these tests will be delayed for several hours and will not result while the patient here in the ER. We also administered a 40 mg dose of Kenalog for intra-articular steroids. Patient will need close outpatient follow-up with his primary care provider for further workup and gout control. We will call the patient if culture grows any concerning findings. Precautions for return to the ER reviewed. After the patient left the ER cell count came back elevated at 20,000 thousand. There is 70% neutrophils, 30% mononuclear cells. This could be consistent with gout, but is also in the indeterminate zone for septic arthritis. Overall clinical presentation would be much more consistent with gout. No change in management. Would hold off on empiric antibiotics for now. Synovial fluid crystal analysis and culture are still pending. Lab Data Labs: Lab Results 06/27/23 Range/Units 10:04 Fluid Volume 30 Fluid Color Xanthochromic A Fluid Appearance Cloudy A Fluid WBC 12494 Cells/uL Fluid RBC 68225 Cells/uL Fluid Polynuclear WBCs 69 % Fluid Mononuclear WBCs 31 % Discharge Plan Discharge Clinical Impression: Effusion of knee joint right, Acute knee pain Patient Disposition: Home, Self-Care Condition: Stable Instructions: Gout (ED), Knee Pain (ED), Swollen Joint (ED), Joint Aspiration (DC) Additional Instructions: Please return to the ER right away if you have worsening knee pain or swelling, redness or warmth of your knee, fever, chills, or body aches, or if you have any concerns. Used Toradol if needed for pain. Your receive a shot of steroids into your knee today so you do not need to take the prednisone. You should notice decreased swelling and pain within 24-48 hours. Even if you get better, please follow-up with your regular doctor at the [facility] as soon as possible for long-term management of your gout. Prescriptions: New ketorolac 10 mg tablet 10 mg PO Q8H PRN (Reason: pain) Qty: 14 0RF No Action prednisone 20 mg tablet 20 mg PO QDAY Qty: 12 0RF Rx Instructions: 3 po as single dose days 1-2, 2 po as single dose days 3-4, 1 po days 5-6, the discontinue. ondansetron 4 mg tablet,disintegrating 4 mg PO Q6H Qty: 20 0RF prednisone 20 mg tablet 20 mg PO BID Qty: 14 0RF allopurinol 100 mg tablet 300 mg PO DAILY Follow Up/Referrals: America Card DO [Primary Care Provider] - Stand Alone Forms: [facility] Info Instructions Procedures Joint Aspiration/Injection Joint Asp./Inject. 1: Time Out Performed: Yes Side of body: right Joint Aspirated: knee Site: origin Preparation: betadine Local Anesthetic: lidocaine 1% Amount of anesthesia used (mL): 5 Needle Size Used: 18G Fluid Obtained: viscous Total fluid obtained (mL): 130 Medication Injected, if any: Triamcinolone Acetate Amount of medication injected (mL): 2 Complications: none Patient Tolerated Procedure: well Additional Comments: We aspirated 130 mL of turbid yellow straw-colored fluid. No blood. It is semi opaque.
[2023-06-27] MEDS: TRIAMCINOLONE 40 MG/ML INJ INTRA-ARTI (10:12)
[2023-06-27 10:52] LABS: Mononuclear WBC Body Fluid* 31 %; Polynuclear WBC Body Fluid* 69 %; RBC, Body Fluid* 26000 Cells/uL; WBC, Body Fluid* 20106 Cells/uL
[2023-06-27 10:56] LABS: BF Clarity* Cloudy; BF Color Xanthochromic; BF Total Volume* 30
== END 2023-06-27 10:23 | disposition home or self-care (01) ==
PROVIDERS: Emergency Provider Emergency Medicine; PCP Family Medicine
DX: M25.461 Effusion, right knee (principal)
CPT/HCPCS: 20610; 87070; 89051; 89060; 96374; 99283; 99284; J1885; J3301

== ENCOUNTER 2023-06-29 20:38 | Emergency (ER) | payer OTHER, SELFPAY ==
[2023-06-29 20:42] VITALS: BP 120/74; PULSE 81; RESP 18; TEMP 36.4; O2SAT 98; BMI 30.1
[2023-06-29 21:25] LABS: Appearance Urine Clear (Clear); Bilirubin Urine Negative (Negative); Blood Urine Negative (Negative); Color Urine Yellow (Yellow); Glucose Urine Negative (Negative); Ketones Urine Negative (Negative); Leukocyte Esterase Urine Negative (Negative); Nitrite Urine Negative (Negative); Protein Urine 2+ (Negative); Specific Gravity Urine >= 1.030 (1.000-1.030)
[2023-06-29 21:37] LABS: RBC Urine 0-2 (0-2); WBC Urine 0-2 (0-5)
--- NOTE | 2023-06-30 04:19 | ED_ITS ---
HPI - General Adult General Chief complaint: GI Bleed Stated complaint: Bleeding when he pees Time Seen by Provider: 06/29/23 21:30 Source: patient Mode of arrival: ambulatory Limitations: no limitations History of Present Illness HPI narrative: 38-year-old male presents the emergency department with perirectal tenderness and reports of GI bleeding intermittently over the past 4 days. Originally the bleeding was just with wiping, no known history of previous hemorrhoids. Tonight, he had a bowel movement that he said was mostly watery pink tinged blood. Tenderness is located in the right rectal area, worse with bowel movements. There are no blood clots, no may maroon or black tarry stools. No injury or trauma. No recreational activities the would have caused bleeding. He does not take any anticoagulants. He does have a history of gout and was started on prednisone and NSAIDs for the gout 2 days ago and continues to take these. He reports that the bleeding with wiping started prior to those med ications. He denies fevers, there is no abdominal pain. No nausea or vomiting. His bowels continue to move normally. Denies prior colonoscopy. No bleeding in between the bowel movements. He called the nurse triage line and they recommended evaluation. There is no dizziness, lightheadedness or weakness. He had normal CBC 2 days ago. Has not tried any topical measures to help with his symptoms. The nursing notes report that his bleeding was urinary. He adamantly denies this and states that he told them that it was rectal, not urinary. He denies any urinary changes, burning, fevers, blood. Past medical history notable for gout, he does take allopurinol prophylactically. Denies any other long-term medical issues. Current prescriptions for prednisone and ketorolac. Ongoing prescription for allopurinol. Nonsmoker. Denies other medical problems. ROS is notable for the GI symptoms as described above. States that the gout is starting to improve. Otherwise denies times 12 systems. Labs reviewed from 2 days ago. Related Data Home Medications Medication Instructions Recorded Confirmed allopurinol 100 mg tablet 300 mg PO DAILY 09/10/22 06/27/23 Previous Rx's Medication Instructions Recorded ondansetron 4 mg disintegrating 4 mg PO Q6H #20 tabs 05/09/23 tablet prednisone 20 mg tablet 20 mg PO BID #14 tabs 05/25/23 prednisone 20 mg tablet 20 mg PO QDAY Gout #12 tabs 06/26/23 ketorolac 10 mg tablet 10 mg PO Q8H PRN pain #14 tabs 06/27/23 Allergies Allergy/AdvReac Type Severity Reaction Status Date / Time No Known Drug Allergies Allergy Verified 06/26/23 14:14 [facility] Medical History Gout ?M10.9 - Gout, unspecified (ICD-10) Surgical History No significant past surgical history Social History Smoking Status: Never smoker Do you use any of these nicotine containing products: None Second hand tobacco smoke exposure: No How often do you have a drink containing alcohol: never How often do you have six or more drinks on one occasion: Never AUDIT-C Alcohol total score: 0 Non-prescribed substance use: denies use service: Yes Exam Const: Vital Signs, click to edit/add: Vital Signs - 24 hr 06/29/23 20:42 Temperature 97.5 F L Pulse Rate [Pulse Oximeter] 81 Respiratory Rate 18 Blood Pressure [Ri ght Upper Arm] 120/74 Pulse Oximetry 98 Oxygen Delivery Me thod Room Air Documenting provider has reviewed patient's vital signs: yes Common normals: no apparent distress and alert Other: A bit unkempt with poor hygiene. Answers questions appropriately, good historian HENMT: Common normals: normocephalic and head/scalp atraumatic Head and scalp: normocephalic and atraumatic Mouth: oral and palatal mucosa normal Throat: posterior oropharynx normal Eye: Common normals: conjunctivae normal General eye: normal appearance of both eyes Conjunctiva: conjunctiva(e) normal Neck & C-Spine: Common normals: full ROM and no lymphadenopathy General: normal visual inspection Resp: Common normals: normal respiratory effort, no use of accessory muscles and clear to auscultation bilaterally Effort & inspection: able to speak in complete sentences Auscultation: clear to auscultation bilaterally Cardio: Common normals: regular rate, regular rhythm, S1 normal heart sound, S2 normal heart sound and no murmurs Rate: regular rate Rhythm: regular rhythm Heart sounds: S1 normal and S2 normal GI: Common normals: Normal to inspection, nondistended, normoactive bowel sounds present, soft to palpation, non-tender, no hepatosplenomegaly and no masses Palpation: soft and no hepatosplenomegaly : Common normals: no CVA tenderness Bladder/kidney exam: no CVA tenderness Other: Rectal exam showing external hemorrhoid at about 4 o'clock position. Scant amount of red blood noted around this but no active bleeding. Hemorrhoid noted at 4:00 a.m.. Patient declined director of consumer marketing for internal exam. Anoscope was used to examine rectal mucosa. There is slight irritation around the hemorrhoid at 4:00 a.m. and tissue is slightly friable but no bright red active bleeding. There is a bit of scant blood in the rectal vault. Stool Hemoccult is collected and is positive. Internal exam shows no evidence of bleeding or abnormality, mass or polyps above the dentate line. Remainder mucosa appears normal with the exception of the spot areas described above. Normal rectal tone. Had some tenderness around 4:00 a.m. in the area described but no severe pain with exam. Back & Pelvis: Common normals: no CVA tenderness Neuro: Sensorium/orientation: alert Speech: speech normal Gait (neuro): normal gait Psych: Attitude: engaged Activity/motor behavior: appropriate eye contact Skin: Common normals: no rashes or lesions noted General skin exam: no treasure hes or lesions noted Course Course ED Course: Rectal bleeding with bowel movements, external source from hemorrhoid seen on exam. No evidence of persistent bleeding, abdominal pain or other worrisome history. Patient is on NSAIDs which certainly could be increasing his bleeding in the interim. Normal platelets and hemoglobin 2 days ago, do not recommend repeat. Counseled patient that it seems like we do have an obvious source for his bleeding. As long as this stops within a few days and there are no heavy blood clots or severe bleeding, there should not be any cause for alarm. If his bleeding lasts longer than a week, I do recommend that he make an appointment with his primary care provider and have a colonoscopy arranged. He should come back to the ED if he has severe bleeding and especially if there is weakness or worsening of symptoms. Counseled that he could have 2 sources for his bleeding and the external source is simply just masking a more worrisome problem, though unlikely. I do think it is safe for him to finish his course of prednisone and Toradol but would like for him to try to wean off of the Toradol as soon as possible. Okay to use Tylenol as needed for discomfort. Okay to try [id number] products like preparation H or Vaseline to Kate the irritated skin. Stool softeners encouraged if he gets any hard stools. Alarm symptoms extensively reviewed that would warrant ED presentation and he verbalizes understanding and agreement. He is comfortable with watchful waiting and coming back if the bleeding worsens. Vital Signs Vital signs: Initial Vital Signs Temperature 97.5 F L 06/29/23 20:42 Temperature Source Temporal Artery Scan 06/29/23 20:42 Pulse Rate 81 06/29/23 20:42 Pulse Rhythm Regular 06/29/23 20:42 Respiratory Rate 18 06/29/23 20:42 Blood Pressure 120/74 06/29/23 20:42 Blood Pressure Mean 89 06/29/23 20:42 Blood Pressure Position Sitting 06/29/23 20:42 Pulse Oximetry 98 06/29/23 20:42 Oxygen Delivery Method Room Air 06/29/23 20:42 Vital Signs Temperature 97.5 F L 06/29/23 20:42 Pulse Rate 81 06/29/23 20:42 Respiratory Rate 18 06/29/23 20:42 Blood Pressure 120/74 06/29/23 20:42 Pulse Oximetry 98 06/29/23 20:42 Oxygen Delivery Method Room Air 06/29/23 20:42 Temperature 97.5 F L 06/29/23 20:42 Pulse Rate 81 06/29/23 20:42 Respiratory Rate 18 06/29/23 20:42 Blood Pressure 120/74 06/29/23 20:42 Pulse Oximetry 98 06/29/23 20:42 Oxygen Delivery Method Room Air 06/29/23 20:42 Medical Decision Making Lab Data Labs: Lab Results 06/29/23 Range/Units 21:15 Urine Color Yellow (Yellow) Urine Appearance Clear (Clear) Urine pH 6.0 (5.0-8.5) Ur Specific Hay >= 1.030 (1.000-1.030) Urine Protein 2+ A (Negative) Urine Glucose (UA) Negative (Negative) Urine Ketones Negative (Negative) Urine Blood Negative (Negative) Urine Nitrite Negative (Negative) Urine Bilirubin Negative (Negative) Urine Urobilinogen 1.0 (0.2-1.0) Ur Leukocyte Esterase Negative (Negative) Urine RBC 0-2 (0-2) Urine WBC 0-2 (0-5) Ur Squamous Epith Cells None (None-Few) Urine Bacteria None (None) Discharge Plan Discharge Clinical Impression: Bleeding external hemorrhoids Patient Disposition: Home, Self-Care Condition: Stable Instructions: Hemorrhoids (DC) Additional Instructions: As we discussed, the tenderness you are experiencing and bleeding is from a hemorrhoid. Your specifically is in the 4 o'clock position on the right side of your rectum. Unfortunately, the prednisone and count medications you are on are probably more making the bleeding a little bit worse. It is not unsafe for you to continue the gout medications. Finish the course as prescribed. Even though the bleeding can look significant in the stool, there are no signs of severe persistent bleeding. If the bleeding worsens and you are having bleeding in between bowel movements, continuous bleeding, lots of clots or starting to feel weak, dizzy or short of breath, come back to the emergency department. The bleeding should stop within a week, if not, you need to make a follow-up appointment with her primary care doctor to schedule a colonoscopy. It is okay to apply gjay-ojg-nlxinoc products such as preparation H to help with the irritation around the hemorrhoid. It is okay to use Tylenol in addition to the medications you are prescribed for pain. If her stools are hard, use dedq-eyv-lesuesy stool softeners. Activity Level: No Restrictions Discharge Diet: Regular Prescriptions: No Action prednisone 20 mg tablet 20 mg PO QDAY Qty: 12 0RF Rx Instructions: 3 po as single dose days 1-2, 2 po as single dose days 3-4, 1 po days 5-6, the discontinue. ondansetron 4 mg tablet,disintegrating 4 mg PO Q6H Qty: 20 0RF prednisone 20 mg tablet 20 mg PO BID Qty: 14 0RF allopurinol 100 mg tablet 300 mg PO DAILY ketorolac 10 mg tablet 10 mg PO Q8H PRN (Reason: pain) Qty: 14 0RF Follow Up/Referrals: America Card DO [Primary Care Provider] - Stand Alone Forms: [facility] Info Instructions
== END 2023-06-29 22:15 | disposition home or self-care (01) ==
LOC: ED 22:07
PROVIDERS: Emergency Provider Family Medicine; PCP Family Medicine
DX: K64.4 Residual hemorrhoidal skin tags (principal)
CPT/HCPCS: 81001; 99282; 99283

== ENCOUNTER 2023-07-06 17:12 | Day surgery (SDC) | payer OTHER, SELFPAY ==
[2023-07-06] VITALS (15 sets, daily range): BP systolic 112–136; BP diastolic 59–87; PULSE 66–91; RESP 16–18; TEMP 36.4–37.1; O2SAT 97–100
[2023-07-06] MEDS: LACTATED RINGERS 1000 ML 1,000 ML 100 ML IV (17:15)
--- NOTE | 2023-07-06 17:53 | PM.GSPRC ---
Operative Note Pre-op diagnosis: 1. Right perianal abscess. Post-op diagnosis: Same Type of Procedure: 1. Incision and drainage of right perianal abscess. Indications: 38-year-old male was seen at [facility] today with worsening perianal pain that started 6 days ago. Patient also noticed purulent drainage around his anus. Patient's last bowel movement was 2 days ago. In clinic patient was found to have an elevated WBC of 13. An abdominal CT was obtained that showed right perianal abscess. On clinical exam patient had edema and induration right laterally with a tiny skin opening with no active drainage noted. Patient's exam was limited due to patient's pain. Purulent drainage was also noted to be around the anus but no clear drainage area was seen. Patient has no prior history of similar abscesses. Given patient's clinical exam and his worsening pain, incision and drainage of perianal abscess was recommended in the operating room. The procedure was discussed in detail. The risks associated procedure including infection, bleeding, and recurrence of symptoms were all discussed with the patient, and he agreed to proceed. Procedure Description: After discussing the risks and benefits of the procedure, the patient signed informed consent.? The patient was brought to the operating room. Spinal anesthesia was administered by nurse eco industrial development consultant. The patient was placed prone on the operating table with pressure points padded.? The operative site was then prepped and draped in the usual sterile fashion.? A time-out was then performed. Perianal skin was examined and induration and edema were noted right posterior laterally at 2:00 o'clock. Anoscope was advanced into the anus and purulent drainage was seen in the anal canal. This was suctioned out. Purulence was noted to drain into the anal canal but no clear opening was visualized. Mucosa overlying the abscess cavity was friable. I advanced a 16 gauge needle near the anoderm right posterior laterally at 2:00 o'clock and small amount of purulence was aspirated. This was the abscess cavity near the anus. A horizontal perianal skin incision was then made near the anoderm with cautery. Additional purulent drainage was noted to come out from the abscess cavity. This was swabbed and culture was sent to microbiology. A small ellipse of skin at the surgical incision was excised with cautery to make the skin opening slightly larger to allow better drainage. The abscess cavity was probed with my pinky finger and appeared to slightly extend to posterior midline but not to the left side and deep along the anal canal for approximately 2 cm. The abscess cavity was irrigated with normal saline. This was packed with iodoform Nu Gauze. A mixture of Marcaine and Exparel was then injected around the anus and for bilateral pudendal nerve block. Sterile dressings were placed over the anus. ? The patient was then woken and transported to the recovery area in stable condition. ? The patient tolerated the procedure well. Findings: Perianal abscess. Anesthesia: MAC, local and spinal Surgeon: Prema Carmona MD Estimated blood loss (mL): 2 Additional Specimen Information: 1. Swab for culture. Condition: stable Disposition: PACU Date of procedure: 07/06/23
[2023-07-06] MEDS: PIPERACILLIN/TAZOBACTAM 3.375 GM in 0.9 % SODIUM CHLORIDE Mini-bag 100 ML IVPB (18:20)
--- NOTE | 2023-07-06 18:29 | PC.NURSE ---
Patient Arrival- Patient arrived to the floor around 1714 via self- drove himself from the [facility]. Present upon admission with R AC IV. VSS on RA. Voided last upon arrival @ 171. Per patient he has not eaten anything since 07/04 and he last drank something @1600. All admission information was collected except for preferred pharmacy... passed on to new RN @ 1900. Patient rates pain @ 3/10 when at rest and goes up to an 8/10 with movement in his R buttock/ anus. Patient was taken down to the OR @ 1800 via bed from 262. Currently in the OR.
[2023-07-06] MEDS: BUPIVACAINE 0.25% 30 ML 10 ML INJECTION (18:33)
[2023-07-06] MEDS: BUPIVACAINE LIPOSOME 133 MG/10 ML INJ INFILTRATI (18:33)
--- NOTE | 2023-07-06 18:50 | W.ANESCHARGE ---
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
--- NOTE | 2023-07-06 19:50 | PC.NURSE ---
Spoke with Dr. Carmona, patient will stay over night tonight to get 0200 dose of ABX and discharge in AM. Patient is agreeable to this plan. Pharmacy verified in chart.
[2023-07-06] MEDS: HYDROCODONE-ACETAMIN 5-325 MG 1 TAB PO (20:58)
[2023-07-06] MEDS: polyethylene glycoL 3350 17 GM PACK PO (21:05)
[2023-07-07] MEDS: HYDROmorphone 0.5 mg/0.5 ml inj IVP ×2 (00:44→02:30)
[2023-07-07] MEDS: LACTATED RINGERS 1000 ML 1,000 ML 100 ML IV (00:45)
[2023-07-07] MEDS: PIPERACILLIN/TAZOBACTAM 3.375 GM in 0.9 % SODIUM CHLORIDE Mini-bag 100 ML IVPB ×2 (02:31→08:45)
[2023-07-07 03:15] VITALS: BP 129/83; PULSE 72; RESP 18; TEMP 36.6; O2SAT 98
[2023-07-07] MEDS: HYDROCODONE-ACETAMIN 5-325 MG 1 TAB PO (06:25)
[2023-07-07 07:35] VITALS: BP 139/87; PULSE 95; RESP 16; TEMP 36.3; O2SAT 97
--- NOTE | 2023-07-07 07:43 | PC.NURSE ---
Pt alert and oriented x3. Afebrile. Pt reports 7/10 pain in right buttock, pain managed with PRN medications. Pt is up ad mendez in room. 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 Night uneventful.
--- NOTE | 2023-07-07 08:48 | PM.DS1 ---
DS: Providers Provider Date Seen: 07/07/23 Primary care physician: America Card DO Attending Physician on discharge: Prema Carmona MD DS: Diagnosis Discharge Diagnosis (1) Perianal abscess: Status: Acute DS: Summary Hospital Course Hospital Course: Patient was admitted to the hospital after he underwent incision and drainage of perianal abscess under anesthesia. He did well overnight. Patient was treated with IV antibiotics. Time Spent with Patient Time attestation: Total time spent providing and/or coordinating discharge services: Exam Narrative: Exam Narrative: Not performed Const: Vital Signs, click to edit/add: Vital Signs - 24 hr 07/06/23 17:33 07/06/23 18:44 07/06/23 18:50 Temperature 98.3 F 98.8 F Pulse Rate 91 89 Pulse Rate [Pulse Oximeter] 75 Respiratory Rate 18 16 16 Blood Pressure 116/72 112/69 Blood Pressure [Le ft Arm] Blood Pressure [Ri ght Arm] 131/86 Pulse Oximetry 98 99 100 Oxygen Delivery Me thod Room Air Room Air 07/06/23 18:55 07/06/23 19:00 07/06/23 19:05 Temperature Pulse Rate 71 71 72 Pulse Rate [Pulse Oximeter] Respiratory Rate 16 16 16 Blood Pressure 116/67 117/70 119/69 Blood Pressure [Le ft Arm] Blood Pressure [Ri ght Arm] Pulse Oximetry 99 99 100 Oxygen Delivery Me thod Room Air 07/06/23 19:10 07/06/23 19:14 07/06/23 19:15 Temperature 98.3 F 97.8 F Pulse Rate 67 69 Pulse Rate [Pulse Oximeter] 69 Respiratory Rate 16 16 16 Blood Pressure 119/72 118/74 Blood Pressure [Le ft Arm] 121/87 Blood Pressure [Ri ght Arm] Pulse Oximetry 100 100 100 Oxygen Delivery Me thod Room Air Room Air 07/06/23 19:30 07/06/23 19:45 07/06/23 20:00 Temperature 97.8 F 97.9 F 97.9 F Pulse Rate Pulse Rate [Pulse Oximeter] 66 77 73 Respiratory Rate 16 16 16 Blood Pressure Blood Pressure [Le ft Arm] 115/71 125/79 117/72 Blood Pressure [Ri ght Arm] Pulse Oximetry 100 100 100 Oxygen Delivery Me thod Room Air Room Air Room Air 07/06/23 20:30 07/06/23 22:00 07/06/23 23:00 Temperature 97.8 F 97.9 F Pulse Rate Pulse Rate [Pulse Oximeter] 73 76 76 Respiratory Rate 18 16 16 Blood Pressure Blood Pressure [Le ft Arm] 136/80 135/78 Blood Pressure [Ri ght Arm] Pulse Oximetry 99 97 Oxygen Delivery Me thod Room Air Room Air 07/06/23 23:00 07/07/23 03:15 Temperature 97.6 F 97.9 F Pulse Rate Pulse Rate [Pulse Oximeter] 76 72 Respiratory Rate 18 18 Blood Pressure Blood Pressure [Le ft Arm] 118/59 L 129/83 Blood Pressure [Ri ght Arm] Pulse Oximetry 97 98 Oxygen Delivery Me thod Room Air Room Air DS: Data Data Completed and Pending Labs on day of discharge: Preliminary micro results at discharge 07/06/23 18:37 Aerobic Culture - Preliminary Abscess - Abscess Culture in Progress Anaerobic Culture - Preliminary Culture in Progress Discharge Plan Discharge Disposition: Home, Self-Care Discharging Surgeon: Prema Carmona Follow-Up Appointment: 1-2 weeks [facility] Prescriptions: New hydrocodone-acetaminophen 5-325 mg tablet 1 tab PO Q6H PRN (Reason: pain) Qty: 25 0RF amoxicillin-pot clavulanate 875-125 mg tablet 1 tab PO BID Qty: 14 0RF Continued allopurinol 100 mg tablet 300 mg PO DAILY ketorolac 10 mg tablet 10 mg PO Q8H PRN (Reason: pain) Qty: 14 0RF Discontinued prednisone 20 mg tablet 20 mg PO QDAY Qty: 12 0RF Rx Instructions: 3 po as single dose days 1-2, 2 po as single dose days 3-4, 1 po days 5-6, the discontinue. prednisone 20 mg tablet 20 mg PO BID Qty: 14 0RF Activity Level: Light activity Activity Detail: sitz baths 3 times a day and after each BM. Continue taking laxatives like Miralax daily to have soft bowel movements with no straining. Drink 1 liter of water daily. Discharge Diet: Regular Patient Instructions: Deep Sedation (DC), Rectal Abscess (DC) Additional Instructions: remove packing from abscess cavity in the bathtub on Thu. No need to repack. Forms: Work/School Release Follow-up: Prema Carmona MD [Staff Physician] - Discharge Orders: Discharge Order (Routine); Ordered 07/07/23 Ordered By: Prema Carmona
--- NOTE | 2023-07-07 12:27 | PC.NURSE ---
Pt UAL in room. IV ATB infused. No breakfast tray order. Pain at surgical site 5 out of 10. IV discontinued. D/C orders per Dr. Carmona. Pt verbalized understanding of d/c diagnosis, home meds, new prescriptions, wound care, f/up appt and sx to report urgently to physician. Ambulatory d/c at 0950 am to own home with all personal belongings.
== END 2023-07-07 09:50 | disposition home or self-care (01) ==
LOC: OR 17:12 → MEDSURG 17:13
PROVIDERS: PCP Family Medicine; Visit Provider Surgery
PROC: (CPT 46040; principal; 2023-07-06 18:00)
DX: K61.0 Anal abscess (principal)
CPT/HCPCS: 46050; 00902; 87070; 87075; 87186; 87205; 99140; A9270; C9290; J0665; J1170; J2250; J2543; J2704; J3010; J7120

== ENCOUNTER 2023-07-15 15:48 | Emergency (ER) | payer OTHER, SELFPAY ==
[2023-07-15 16:29] VITALS: BP 154/92; PULSE 55; RESP 18; TEMP 36.2; O2SAT 97; BMI 30.1
--- NOTE | 2023-07-15 16:58 | ED_ITS ---
HPI - General Adult General Chief complaint: Extremity Pain/Injury, Upper Stated complaint: R hand swollen reoccurring gout Time Seen by Provider: 07/15/23 16:38 History of Present Illness HPI narrative: history of gout . is having a flare today. saw PMD today who gave him indomethicin with no relief 38-year-old man presenting to the emergency department complaint of hand pain. Seems to be having more frequent flares of gout between his right hand or right knee. Does not seem to involve his feet/toes typically. Saw primary yesterday who informed him at this point she would be contacting rheumatology for an opinion. Waiting to hear back from them in the meantime prescribed indomethacin. I had last seen Mr. Page in the emergency department as well with a knee effusion suspected secondary to gout. As he notes that indomethacin has been less effective was also given prednisone. He has had 1 dose of indomethacin today and says that his hands since ?blown up?. Apparently usually it takes at least a couple of doses of indomethacin to settle things down. Is clearly frustrated wanting to participate more in the gym and unable to do so with these recurrent flares of gout. Contemplating other options for treatment I do inquire as to last labs. He believes he had been surely recently though I am not able to verify that a review of records. There are basic chemistries from August of 2022. Good renal function at that time. A knee tap was done on 06/27/2023 which showed intracellular monosodium urate crystals. Related Data Home Medications Medication Instructions Recorded Confirmed allopurinol 100 mg tablet 300 mg PO DAILY 09/10/22 07/07/23 Previous Rx's Medication Instructions Recorded ketorolac 10 mg tablet 10 mg PO Q8H PRN pain #14 tabs 06/27/23 amoxicillin 875 mg-potassium 1 tab PO BID #14 tabs 07/07/23 clavulanate 125 mg tablet hydrocodone 5 mg-acetaminophen 325 1 tab PO Q6H PRN pain #25 tabs 07/07/23 mg tablet hydrocodone 5 mg-acetaminophen 325 1 - 2 tab PO Q4-6H PRN pain #15 07/15/23 mg tablet tabs ketorolac 10 mg tablet 10 mg PO QID PRN pain 1 day #15 07/15/23 tabs prednisone 20 mg tablet See Rx Instructions .Route 07/15/23 .COMPLEX #15 tabs Allergies Allergy/AdvReac Type Severity Reaction Status Date / Time No Known Drug Allergies Allergy Verified 06/26/23 14:14 Review of Systems Status of ROS: Reports: 6 or more systems reviewed and unremarkable except as noted in History and below [facility] Medical History Gout ?M10.9 - Gout, unspecified (ICD-10) Surgical History No significant past surgical history Social History What is your current living situation?: I presently have a place to live Problems where you live: no known problems Problems where you live details: none In past 12 months, lack of transportation kept you from medical appts, meetings, work, or getting things needed for daily living: no In the past 12 mos, have been you worried that your food would run out before you had money to buy more?: never true In the past 12 mos, the food you bought just didn't last and you didn't have money to buy more?: never true Smoking Status: Never smoker Do you use any of these nicotine containing products: None Second hand tobacco smoke exposure: No How often do you have a drink containing alcohol: never How often do you have six or more drinks on one occasion: Never AUDIT-C Alcohol total score: 0 Non-prescribed substance use: denies use Caffeine: Yes How often does anyone, including family, friends and others, physically hurt you : never How often does anyone, including family, friends and others, insult or talk down to you: never How often does anyone, including family, friends and others, threaten you with harm: never How often does anyone, including family, friends and others, scream or curse at you: never service: Yes Exam Narrative: Exam Narrative: Clearly frustrated. Breathing easily. Heart is in a slow rate and regular rhythm. Skin is warm and dry. Painful area in question is clearly softly swollen family erythematous with mild erythema generally over the right hand. Exquisitely tender even to light touch. He is protecting at. I do not see induration of the skin to suggest cellulitic change. Const: Vital Signs, click to edit/add: Vital Signs - 24 hr 07/15/23 16:29 Temperature 97.2 F L Pulse Rate [Right Pulse Oximeter] 55 L Respiratory Rate 18 Blood Pressure [Ri ght Upper Arm] 154/92 H Pulse Oximetry 97 Oxygen Delivery Me thod Room Air Documenting provider has reviewed patient's vital signs: yes Course Vital Signs Vital signs: Initial Vital Signs Temperature 97.2 F L 07/15/23 16:29 Temperature Source Temporal Artery Scan 07/15/23 16:29 Pulse Rate 55 L 07/15/23 16:29 Respiratory Rate 18 07/15/23 16:29 Blood Pressure 154/92 H 07/15/23 16:29 Blood Pressure Mean 112 H 07/15/23 16:29 Blood Pressure Position Sitting 07/15/23 16:29 Pulse Oximetry 97 07/15/23 16:29 Oxygen Delivery Method Room Air 07/15/23 16:29 Vital Signs Temperature 97.2 F L 07/15/23 16:29 Pulse Rate 55 L 07/15/23 16:29 Respiratory Rate 18 07/15/23 16:29 Blood Pressure 154/92 H 07/15/23 16:29 Pulse Oximetry 97 07/15/23 16:29 Oxygen Delivery Method Room Air 07/15/23 16:29 Temperature 97.2 F L 07/15/23 16:29 Pulse Rate 55 L 07/15/23 16:29 Respiratory Rate 18 07/15/23 16:29 Blood Pressure 154/92 H 07/15/23 16:29 Pulse Oximetry 97 07/15/23 16:29 Oxygen Delivery Method Room Air 07/15/23 16:29 Medical Decision Making MDM Narrative Medical decision making narrative: I am not able to find information of yesterday's visit. Seems frustrated when I discuss treating again for this acute abnormality. Is not clear to me that alternatives like colchicine have been considered. Is currently taking allopurinol 300 mg daily. Has not historically stopped allopurinol during treatment for gouty flares. I understand him to be disinclined to lab tests today. I did review records as indicated above. Discussed options for treatment of this acute arthritic flare. Has only had 1 dose of indomethacin. I am not sure this indicates a treatment failure yet but I understand that he is concerned about the rapid progression and degree of discomfort. See patient discharge plan Medical Records Medical records reviewed: Yes I reviewed the patient's medical records Discharge Plan Discharge Clinical Impression: Monoarticular arthritis Patient Disposition: Home, Self-Care Condition: Stable Additional Instructions: Stay well hydrated with water. Drink 2-3 L of water a day. Be prescribing a few options. I am not convinced that you have failed indomethacin yet; I do not think 1 dose is enough to make that determination. You can continue with another couple of doses before making that decision or I suppose you can jump ship to ketorolac per your preference. An alternative is prednisone. Do not take the indomethacin with the ketorolac; choose 1 or the other. Technically prednisone could be combined with either indomethacin or ketorolac or you could use it as mono-therapy. Hold your allopurinol during your acute attack/treatment and for a week after resolution. Check in with your primary about this referral to Rheumatology. They may want some more labs ahead of this. Prescriptions: New hydrocodone-acetaminophen 5-325 mg tablet 1 - 2 tab PO Q4-6H PRN (Reason: pain) Qty: 15 0RF prednisone 20 mg tablet See Rx Instructions .ROUTE .COMPLEX Qty: 15 1RF Rx Instructions: Take 60 mg the 1st day, then 40 mg daily days 2 through 5, then 20 mg daily days 5 through 8 ketorolac 10 mg tablet 10 mg PO QID PRN (Reason: pain) 1 Days Qty: 15 1RF No Action hydrocodone-acetaminophen 5-325 mg tablet 1 tab PO Q6H PRN (Reason: pain) Qty: 25 0RF amoxicillin-pot clavulanate 875-125 mg tablet 1 tab PO BID Qty: 14 0RF allopurinol 100 mg tablet 300 mg PO DAILY ketorolac 10 mg tablet 10 mg PO Q8H PRN (Reason: pain) Qty: 14 0RF Follow Up/Referrals: America Card DO [Primary Care Provider] - Stand Alone Forms: [facility] Info Instructions
== END 2023-07-15 18:01 | disposition home or self-care (01) ==
LOC: ED 17:40
PROVIDERS: Emergency Provider Family Medicine; PCP Family Medicine
DX: M13.141 Monoarthritis, not elsewhere classified, right hand (principal)
CPT/HCPCS: 99283; 99284

== ENCOUNTER 2024-01-09 03:25 | Emergency (ER) | payer OTHER, SELFPAY ==
[2024-01-09 03:31] VITALS: BP 146/103; PULSE 89; RESP 16; TEMP 36.6; O2SAT 96; BMI 31.7
--- NOTE | 2024-01-09 03:40 | ED.GENADULT ---
HPI - General Adult General Chief complaint: Shoulder Injury/Pain Stated complaint: R shoulder blade pain Time Seen by Provider: 01/09/24 03:33 History of Present Illness HPI narrative: Patient is a 38-year-old gentleman who has had an shoulder dislocations in the past and often times has arthritic type pain. He has had no recent injuries. He has severe pain with motion of the right shoulder E primarily posteriorly. His no indication the shoulders is located. He has had no fevers no chills no chest pain no orthopnea no PND. The pain is severe and sharp and located the posterior aspect of the right shoulder. Related Data Home Medications Medication Instructions Recorded Confirmed allopurinol 100 mg tablet 300 mg PO DAILY 09/10/22 07/07/23 Previous Rx's Medication Instructions Recorded ketorolac 10 mg tablet 10 mg PO Q8H PRN pain #14 tabs 06/27/23 amoxicillin 875 mg-potassium 1 tab PO BID #14 tabs 07/07/23 clavulanate 125 mg tablet hydrocodone 5 mg-acetaminophen 325 1 tab PO Q6H PRN pain #25 tabs 07/07/23 mg tablet hydrocodone 5 mg-acetaminophen 325 1 - 2 tab PO Q4-6H PRN pain #15 07/15/23 mg tablet tabs ketorolac 10 mg tablet 10 mg PO QID PRN pain 1 day #15 07/15/23 tabs prednisone 20 mg tablet See Rx Instructions .Route 07/15/23 .COMPLEX #15 tabs Allergies Allergy/AdvReac Type Severity Reaction Status Date / Time No Known Drug Allergies Allergy Verified 06/26/23 14:14 Review of Systems Status of ROS: Reports: 10 or more systems reviewed and unremarkable except as noted in History and below [facility] Medical History Gout ?M10.9 - Gout, unspecified (ICD-10) Surgical History No significant past surgical history Social History What is your current living situation?: I presently have a place to live Problems where you live: no known problems Problems where you live details: none In past 12 months, lack of transportation kept you from medical appts, meetings, work, or getting things needed for daily living: no In the past 12 mos, have been you worried that your food would run out before you had money to buy more?: never true In the past 12 mos, the food you bought just didn't last and you didn't have money to buy more?: never true Smoking Status: Never smoker Do you use any of these nicotine containing products: None Second hand tobacco smoke exposure: No How often do you have a drink containing alcohol: never How often do you have six or more drinks on one occasion: Never AUDIT-C Alcohol total score: 0 Non-prescribed substance use: denies use Caffeine: Yes How often does anyone, including family, friends and others, physically hurt you: never How often does anyone, including family, friends and others, insult or talk down to you: never How often does anyone, including family, friends and others, threaten you with harm: never How often does anyone, including family, friends and others, scream or curse at you: never service: Yes Exam Narrative: Exam Narrative: EXAM GENERAL: Patient appears comfortable and well. EYES: No scleral icterus. LYMPH: No supraclavicular or cervical lymphadenopathy. SKIN: Visible skin seen during exam normal or with benign process only. EXT: Examination the right shoulder shows mild reduced range of motion no pain with palpation no signs of deformities. HEART: Regular rate and rhythm with no murmurs, rubs, or gallops. LUNGS: Clear to auscultation bilaterally with no crackles or wheezes. ABD: Soft, non tender, non distended. PSYCH: Good eye contact, speech is not pressured. Const: Vital Signs, click to edit/add: Vital Signs - 24 hr 01/09/24 03:31 Temperature 97.9 F Pulse Rate [Pulse Oximeter] 89 Respiratory Rate 16 Blood Pressure [Ri ght Upper Arm] 146/103 H Pulse Oximetry 96 Oxygen Delivery Me thod Room Air Course Course ED Course: Patient seen and examined. Vital Signs Vital signs: Initial Vital Signs Temperature 97.9 F 01/09/24 03:31 Temperature Source Temporal Artery Scan 01/09/24 03:31 Pulse Rate 89 01/09/24 03:31 Respiratory Rate 16 01/09/24 03:31 Blood Pressure 146/103 H 01/09/24 03:31 Blood Pressure Mean 117 H 01/09/24 03:31 Blood Pressure Position Sitting 01/09/24 03:31 Pulse Oximetry 96 01/09/24 03:31 Oxygen Delivery Method Room Air 01/09/24 03:31 Vital Signs Temperature 97.9 F 01/09/24 03:31 Pulse Rate 89 01/09/24 03:31 Respiratory Rate 16 01/09/24 03:31 Blood Pressure 146/103 H 01/09/24 03:31 Pulse Oximetry 96 01/09/24 03:31 Oxygen Delivery Method Room Air 01/09/24 03:31 Temperature 97.9 F 01/09/24 03:31 Pulse Rate 89 01/09/24 03:31 Respiratory Rate 16 01/09/24 03:31 Blood Pressure 146/103 H 01/09/24 03:31 Pulse Oximetry 96 01/09/24 03:31 Oxygen Delivery Method Room Air 01/09/24 03:31 Medical Decision Making MDM Narrative Medical decision making narrative: Patient is a 38-year-old gentleman with history of shoulder injury who has paroxysms of pain over the last several years. I did examine him carefully and do think that a 30 mg of Toradol +of 5 day course of prednisone his reasonable 20 mg b.i.d.. He will ice and advance his activity as tolerated follow-up with his primary physician as needed. Differential diagnosis includes but not limited to shoulder dislocation and shoulder arthritis pulmonary embolism myocardial infarction pneumothorax strain ligamentous tear. Discharge Plan Discharge Clinical Impression: Severe shoulder pain Condition: Stable Instructions: Shoulder Pain (ED) Additional Instructions: Prednisone as directed Tylenol Motrin Ice Rest Follow-up with your doctor as needed. Activity Level: No Restrictions Discharge Diet: Regular Prescriptions: No Action hydrocodone-acetaminophen 5-325 mg tablet 1 tab PO Q6H PRN (Reason: pain) Qty: 25 0RF amoxicillin-pot clavulanate 875-125 mg tablet 1 tab PO BID Qty: 14 0RF allopurinol 100 mg tablet 300 mg PO DAILY ketorolac 10 mg tablet 10 mg PO Q8H PRN (Reason: pain) Qty: 14 0RF hydrocodone-acetaminophen 5-325 mg tablet 1 - 2 tab PO Q4-6H PRN (Reason: pain) Qty: 15 0RF prednisone 20 mg tablet See Rx Instructions .ROUTE .COMPLEX Qty: 15 1RF Rx Instructions: Take 60 mg the 1st day, then 40 mg daily days 2 through 5, then 20 mg daily days 5 through 8 ketorolac 10 mg tablet 10 mg PO QID PRN (Reason: pain) 1 Days Qty: 15 1RF Follow Up/Referrals: America Card DO [Primary Care Provider] - Stand Alone [facility] Inst[facility]
[2024-01-09 03:42] VITALS: TEMP 36.6
[2024-01-09] MEDS: KETOROLAC 30 MG/ML inj IM (03:42)
--- OUTSIDE RECORDS SUMMARY | 2024-01-09 03:57 | XMS_ITS | Clinical Summary ---
Author Name Unknown Organization [employer] [facility] [employer] [employer] [facility] Address [place], [place] [address] Care Team Providers Care Horticultural Farmer Name Role Phone America Card DO Primary Care Provider [phone] Allergies No known active allergies Medications Medication Sig Dispensed Refills Start Date End Date Status hydrocortisone (ANUSOL-HC) 2.5 % rectal creamIndications:He morrhoids, external Apply topically to affected area(s) two times daily. 28 g 3 07/03/2023 Active HYDROcodone-acetami nophen (5-325 mg/tablet) TAKE ONE TABLET BY MOUTH EVERY SIX HOURS NEEDED FOR PAIN* 07/07/2023 Active indomethacin (INDOCIN) 50 mg capsuleIndications: Acute gout of multiple sites, unspecified cause Take 1 Capsule (50 mg) by mouth three times daily with meals. Discontinue 2 days after gout flare resolves 21 Capsule 07/15/2023 Active ketorolac (TORADOL) 10 mg tablet Take 10 mg by mouth every 6 hours if needed for Pain. 08/13/2023 Active allopurinoL (ZYLOPRIM) 100 mg tabletIndications:C hronic gout of right knee, unspecified cause Take 4 Tablets (400 mg) by mouth once daily. 10/26/2023 Active Active Problems Problem Noted Date Diagnosed Date Alcohol abuse 02/03/2019 Generalized anxiety disorder 02/03/2019 Psychophysiological insomnia 02/03/2019 Acute idiopathic gout of right knee 11/04/2017 Overview: Oct 2017: Gout diagnosis confirmed with joint aspiration of right knee showing gout crystals. December 2017: Saw Dr. Horta for rheumatoid consult, agreed with continue allopurinol for goal of uric Acid under 6. Encounters Date Type Department Care Team Description 11/16/2023 Refill [facility] [address] [place] [address] Shaqra, America Roz, DO Refill Request (Prednisone) 11/16/2023 E-Visit [facility] [address] [facility] [place] [address] Shaqra, America Roz, DO Prednisone. 10/23/2023 Telephone [facility] [address] [place] [address] Shaqra, America Roz, DO Medication Management 10/13/2023 Telephone [facility] [address] [place] [address] Ifeanyi Montelongo MD Appointment (Dr. Montelongo 10/16/2023) from Last 3 Months Immunizations Name Administration Dates Next Due Influenza Virus, Unspecified 06/10/2022 Influenza, IIV3 (Age 6-35 mos) 07/12/2015 Influenza, IIV4 06/12/2021,06/21/2020,06/07/2019 ,07/05/2018 Influenza,CCIIV4 PRESERV FREE 06/10/2022 TD, UNSPECIFIED 09/14/2008 Tdap 07/05/2018,11/29/2013 Social History Tobacco Use Types Packs/Day Years Used Date Smoking Tobacco: Never Smokeless Tobacco: Former Tobacco Cessation:Counseling Given: Yes Alcohol Use Standard Drinks/Week Comments Not Currently 0 (1 standard drink = 0.6 oz pur e alcohol) Quit drinking 01/14/2019 PHQ-2 Answer Date Recorded PHQ-2 TOTAL SCORE 0 10/24/2022 Social Connections Answer Date Recorded Frequency of Communication with Friends and Fami ly Not on file 09/03/2023 Financial Resource Strain Answer Date R ecorded Difficulty of Paying Living Expenses 3 08/20/2022 Difficulty of Paying Living Expenses Not on file 08/20/2022 Food Insecurity Answer Date Recorded Worried About Running Out of Food in the Last Ye ar 1 08/20/2022 Transportation Needs Answer Date Record ed Lack of Transportation (Medical) 1 08/20/2022 Housing Stability Answer Date Recorded Unable to Pay for Housing in the Last Year 1 08/20/2022 Sex and Gender Information Value Date Recorded Sex Assigned at Not on file Gender Identity Not on file Sexual Orientation Not on file Obstetrics History Last Filed Vital Signs Vital Sign Reading Time Taken Comments Blood Pressure 116/77 09/23/2023 7:46 AM DIRECTOR HR COMMUNICATIONS Pulse 88 09/23/2023 7:46 AM DIRECTOR HR COMMUNICATIONS Temperature 36.8 ??C (98.3 ??F) 10/21/2022 1 2:04 PM DIRECTOR HR COMMUNICATIONS Respiratory Rate 12 01/04/2018 1:17 PM CDT Oxygen Saturation 98% 09/23/2023 7:46 AM DIRECTOR HR COMMUNICATIONS Inhaled Oxygen Concentration - - Weight 101.4 kg (223 lb 9.6 oz) 09/23/2023 7:46 AM DIRECTOR HR COMMUNICATIONS Height 177.8 cm (5' 10) 04/23/2023 10: 03 AM CDT Body Mass Index 32.08 04/23/2023 10:03 AM CDT Plan of Treatment Upcoming Encounters Date Type Department Care Team (Late st Contact Info) Description 01/19/2024 8:30 AM CDT Office Visit [facility] [address] [place] [address] America Card, [address] [place] [address] Health Maintenance Due Date Last Done Comments Pneumococcal series for age 6-64 (1 of 2 - PCV) 1992 HIV for age 15-65 2001 Hepatitis C screening for ag e 18-79 2004 COVID-19 vaccine series ( season) 2023 01/31/2021, 01/10/2021 Depression screening for age 12+ 10/24/2023 10/24/2022, 06/21/2020, 03/22/2019, Additional history exists BMI (ht and wt on same day) for age 18+ 04/23/2024 04/23/2023, 04/21/2022, 07/24/2020, Additional history exists Influenza for age 9-49 2024 , 06/10/2022, 06/12/2021, Additional history exists Lipids for age 35-44 10/24/2027 10/24/2022 Tetanus booster 07/05/2028 07/05/2018, 11/12, 09/14/2008 Tdap Completed 07/05/2018, 11/29/2013 Procedures Procedure Name Priority Date/Time Associated Diagnosis Comments LC LIPID PANEL AND CHOL/HDL RATIO Routine 10/24/2022 9:12 AM DIRECTOR HR COMMUNICATIONS Screening cholesterol level from Last 3 Months or Most Recently Relevant to Health Maintenance Results * (ABNORMAL) LC LIPID PANEL AND CHOL/HDL RATIO (10/24/2022 9:12 AM DIRECTOR HR COMMUNICATIONS) [facility] Cholesterol, Total 139 100 - 199 mg/dL 10/27/2022 2:07 PM [facility] Triglycerides 121 0 - 149 mg/dL 10/27/2022 2:07 PM [facility] HDL Cholesterol 31(L) >39 mg/dL 2:07 PM [facility] VLDL Cholesterol Bony 22 5 - 40 mg/dL 10/27/2022 2:07 PM [facility] LDL Chol Calc (NIH) 86 0 - 99 mg/dL 10/27/2022 2:07 PM [facility] T. Chol/HDL Ratio 4.5 0.0 - 5.0 ratio 10/27/2022 2:07 PM [facility] ([facility]) Comment: ?T. Chol/HDL Ratio ?Men ??Women ?1/2 Avg.Risk ??3.4 ?3.3 ?Avg.Risk ??5.0 ?4.4 ? 2X Avg.Risk ??9.6 ?7.1 ? 3X Avg.Risk 23.4 ?? 11.0 Blood BLOOD SPECIMEN / Unknown Venipuncture / Unknown 10/24/2022 9:12 AM DIRECTOR HR COMMUNICATIONS 10/24/2022 9:17 AM DIRECTOR HR COMMUNICATIONS Narrative [facility] ([facility]) - 10/27/2022 2:07 PM DIRECTOR HR COMMUNICATIONS Performed at: ??01 - [facility] [address] [place], [place] ??[id number] Furnace Mason: Taiwo Brock MD, Phone: ??[phone] America Card DO SEND OUTS [facility] ([facility]) [address] [place] [address], from Last 3 Months or Most Recently Relevant to Health Maintenance Care Teams Horticultural Farmer Relationship Specialty Start Date End Date America Card DO [address] [place] [address] PCP - General Internal Medicine 11/15/20
== END 2024-01-09 04:00 | disposition home or self-care (01) ==
LOC: ED 03:54
PROVIDERS: Emergency Provider Internal Medicine; PCP Family Medicine
DX: M25.511 Pain in right shoulder (principal)
CPT/HCPCS: 96372; 99283; J1885

== ENCOUNTER 2024-02-13 17:49 | Emergency (ER) | payer OTHER, SELFPAY ==
[2024-02-13 17:54] VITALS: BP 148/92; PULSE 82; RESP 16; TEMP 36.8; O2SAT 97; BMI 31.6
--- NOTE | 2024-02-13 18:19 | CRLHL7_ITS ---
For Patients: As a result of the Cures Act, medical imaging exams and procedure reports are released immediately into your electronic medical record. You may view this report before your referring provider. If you have questions, please contact your health care provider. INDICATION: Trauma. TECHNIQUE: Left hand radiographs, 3 views. COMPARISON: None. FINDINGS: No acute fractures or dislocation. The joint spaces are preserved. The scaphoid is intact. The carpal arcs are maintained. No significant soft tissue edema or radiopaque foreign bodies. IMPRESSION: No acute fractures or dislocation. Dictated by Ron Jean MD @ 02/13/2024 7:56:47 PM (Electronically Signed)
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
--- NOTE | 2024-02-13 18:19 | CRLHL7_ITS ---
For Patients: As a result of the Century Cures Act, medical imaging exams and procedure reports are released immediately into your electronic medical record. You may view this report before your referring provider. If you have questions, please contact your health care provider. INDICATION: Trauma. TECHNIQUE: Left wrist radiographs, 3 views. COMPARISON: None. FINDINGS: No acute fractures or dislocation. The joint spaces are preserved. The scaphoid appears intact. The carpal arcs are maintained. No widening of the scapholunate interval. Negative ulnar variance. No significant soft tissue edema or radiopaque foreign bodies. IMPRESSION: No acute fractures or dislocation. Dictated by Ron Jean MD @ 02/13/2024 7:59:33 PM (Electronically Signed)
--- NOTE | 2024-02-13 18:19 | CRLHL7_ITS ---
For Patients: As a result of the Century Cures Act, medical imaging exams and procedure reports are released immediately into your electronic medical record. You may view this report before your referring provider. If you have questions, please contact your health care provider. INDICATION: Trauma. TECHNIQUE: Left elbow radiographs, 3 views. COMPARISON: None. FINDINGS: No acute fractures or dislocation. The joint spaces are preserved. Fat pads of the elbow are preserved. No significant joint effusion. No significant soft tissue edema or radiopaque foreign bodies. IMPRESSION: No acute fractures or dislocation. Dictated by Ron Jean MD @ 02/13/2024 8:01:06 PM (Electronically Signed)
[2024-02-13] MEDS: IBUPROFEN 200 MG TABLET 600 MG PO (18:31)
--- OUTSIDE RECORDS SUMMARY | 2024-02-13 18:35 | XMS_ITS | Clinical Summary ---
Author Organization [employer] [facility] Address [place], [place] [address] Care Team Providers Care Adult Parole Officer Name Role Phone America Card DO Primary Care Provider [phone] Allergies No known active allergies Medications Medication [...] Type Department Care Team Description 11/16/2023 Refill [facility] [address] [facility] [address] Shaqra, America Roz, DO Refill Request (Prednisone) 11/16/2023 E-Visit [facility] [address] [place] [address] Shaqra, America Roz, DO Prednisone. from Last 3 Months Immunizations Name Administration [...] Comments Blood Pressure 116/77 09/23/2023 7:46 AM MEDICAL EQUIPMENT TECHNICIAN Pulse 88 09/23/2023 7:46 AM MEDICAL EQUIPMENT TECHNICIAN Temperature 36.8 ??C (98.3 ??F) 10/21/2022 1 2:04 PM MEDICAL EQUIPMENT TECHNICIAN Respiratory Rate 12 01/04/2018 1:17 PM CDT Oxygen Saturation 98% 09/23/2023 7:46 AM MEDICAL EQUIPMENT TECHNICIAN Inhaled Oxygen Concentration - - Weight 101.4 kg (223 lb 9.6 oz) 09/23/2023 7:46 AM MEDICAL EQUIPMENT TECHNICIAN Height 177.8 cm (5' 10) 04/23/2023 10: 03 AM CDT Body Mass Index 32.08 04/23/2023 10:03 AM CDT Plan of Treatment Health Maintenance Due Date Last Done Comments Pneumococcal series for age 6-64 (1 of 2 - PCV) 1992 HIV for age 15-65 2001 Hepatitis C screening for ag e 18-79 2004 COVID-19 vaccine series (2022-24 season) 2023 01/31/2021, 01/10/2021 Depression screening for [...] AND CHOL/HDL RATIO Routine 10/24/2022 9:12 AM MEDICAL EQUIPMENT TECHNICIAN Screening cholesterol level from Last 3 Months or Most Recently Relevant to Health Maintenance Results * (ABNORMAL) LC LIPID PANEL AND CHOL/HDL RATIO (10/24/2022 9:12 AM MEDICAL EQUIPMENT TECHNICIAN) Cholesterol, Total 139 100 - 199 mg/dL 10/27/2022 2:07 PM MEDICAL EQUIPMENT TECHNICIAN [facility] Triglycerides 121 0 - 149 mg/dL 10/27/2022 2:07 PM MEDICAL EQUIPMENT TECHNICIAN [facility] HDL Cholesterol 31(L) >39 mg/dL 2:07 PM [facility] ([facility]) VLDL Cholesterol Bony 22 5 - 40 mg/dL 10/27/2022 2:07 PM [facility] ([facility] LDL Chol Calc (NIH) 86 0 - 99 mg/dL 10/27/2022 2:07 PM [facility] ([facility]) T. Chol/HDL Ratio 4.5 0.0 - 5.0 ratio 10/27/2022 2:07 PM [facility] ([facility]) Comment: ?T. Chol/HDL Ratio ?Men ??Women ?1/2 Avg.Risk ??3.4 ?3.3 ?Avg.Risk ??5.0 ?4.4 ? 2X Avg.Risk ??9.6 ?7.1 ? 3X Avg.Risk 23.4 ?? 11.0 Blood BLOOD SPECIMEN / Unknown Venipuncture / Unknown 10/24/2022 9:12 AM MEDICAL EQUIPMENT TECHNICIAN 10/24/2022 9:17 AM [facility] ([facility]) - 10/27/2022 2:07 PM MEDICAL EQUIPMENT TECHNICIAN Performed at: ??01 - [facility] [address] ??[id number] Rigging Engineer: Taiwo Brock MD, Phone: ??[phone] America Card DO SEND OUTS [facility] ([facility]) [address] [place] [address] from Last 3 Months or Most Recently Relevant to Health Maintenance Care Teams Adult Parole Officer Relationship Specialty Start Date End Date America Card DO [address] [place] [address] PCP - General Internal Medicine 11/15/20
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
[2024-02-13 20:38] VITALS: BP 136/75; PULSE 78; RESP 18; TEMP 36.8; O2SAT 99
== END 2024-02-13 20:39 | disposition home or self-care (01) ==
PROVIDERS: Emergency Provider Family Medicine; PCP Family Medicine
DX: S40.022A Contusion of left upper arm, initial encounter (principal); V19.3XXA Pedal cyclist (driver) (passenger) injured in unspecified nontraffic accident, initial encounter
CPT/HCPCS: 73080; 73090; 73110; 73120; 99283; 99284; A9270

== ENCOUNTER 2024-04-17 13:32 | Emergency (ER) | payer OTHER, SELFPAY ==
[2024-04-17 13:41] VITALS: BP 150/92; PULSE 83; RESP 16; TEMP 36.2; O2SAT 97; BMI 33.1
--- NOTE | 2024-04-17 14:50 | CRLHL7_ITS ---
For Patients: As a result of the Cures Act, medical imaging exams and procedure reports are released immediately into your electronic medical record. You may view this report before your referring provider. If you have questions, please contact your health care provider. INDICATION: No elbow injury swollen and pain, pain, swelling TECHNIQUE: Elbow radiograph 3 views right COMPARISON: None FINDINGS: Bone: No acute fractures or aggressive bone lesions are identified. Joint: The elbow joint is unremarkable. No significant displacement of the anterior or posterior fat pads noted to suggest an effusion. Soft tissue: Subcutaneous edema is seen over the medial epicondyle and swelling is noted over the olecranon. No radiopaque foreign bodies are seen. IMPRESSION: 1. No acute osseous injuries or abnormalities are noted. Dictated by Mariano Cisneros MD @ 04/17/2024 3:18:21 PM Dictated by: Mraiano Cisneros MD @ 04/17/2024 15:18:32 (Electronically Signed)
--- NOTE | 2024-04-17 14:51 | ED_ITS ---
HPI - General Adult General Chief complaint: Extremity Pain/Injury, Upper Stated complaint: Pain in right forearm, pain/numbness in fingers Time Seen by Provider: 04/17/24 14:03 History of Present Illness HPI narrative: This 38-year-old male comes in reporting pain in his right elbow for the past several days or almost a week. He does not report any specific injury event but states that he does do a lot of jujitsu. He has swelling and decreased range of motion of his right elbow joint. He cannot fully extend his elbow and has increased pain with flexion. He reports some tingling sensation out into his hand but has normal range of motion and function of his hand and wrist. Related Data Home Medications ?Medication ?Instructions ?Recorded ?Confirmed allopurinol 100 mg tablet 300 mg PO DAILY 09/10/22 04/17/24 Previous Rx's ?Medication ?Instructions ?Recorded ketorolac 10 mg tablet 10 mg PO Q8H PRN pain #14 tabs 06/27/23 hydrocodone 5 mg-acetaminophen 325 1 tab PO Q6H PRN pain #25 tabs 07/07/23 mg tablet hydrocodone 5 mg-acetaminophen 325 1 - 2 tab PO Q4-6H PRN pain #15 07/15/23 mg tablet tabs ketorolac 10 mg tablet 10 mg PO QID PRN pain 1 day #15 07/15/23 tabs prednisone 20 mg tablet See Rx Instructions .Route 07/15/23 .COMPLEX #15 tabs ketorolac 10 mg tablet 10 mg PO TID 5 days #15 tabs 04/17/24 methylprednisolone 4 mg tablets in See Rx Instructions PO .COMPLEX 04/17/24 a dose pack (Medrol (Noe)) #21 ea Allergies Allergy/AdvReac Type Severity Reaction Status Date / Time No Known Drug Allergies Allergy Verified 04/17/24 13:40 Review of Systems Status of ROS: Reports: 10 or more systems reviewed and unremarkable except as noted in History and below Narrative: Constitutional: No fevers, no weight gain or loss. Eyes: No discharge. No vision changes. HENT: No congestion, no sore throat, no ear pain. Cardiovascular: No chest pain, no palpitations. Respiratory: No shortness of breath, no wheezes, no cough. Gastrointestinal: No abdominal pain, no vomiting, no diarrhea. Genitourinary: No dysuria, no hematuria. Musculoskeletal: Right elbow pain and swelling as described above. Skin: No rashes, no pruritis. Neurological: No dizziness, weakness, sensory change, speech change. Endo/Heme/Allergies: No bruising or bleeding. No polydipsia. Pysch: no suicidality, no anxiety, no insomnia. All other systems reviewed and are negative. [facility] Medical History Gout ?M10.9 - Gout, unspecified (ICD-10) Surgical History No significant past surgical history Social History What is your current living situation?: I presently have a place to live Problems where you live: no known problems Problems where you live details: none In past 12 months, lack of transportation kept you from medical appts, meetings, work, or getting things needed for daily living: no In the past 12 mos, have been you worried that your food would run out before you had money to buy more?: never true In the past 12 mos, the food you bought just didn't last and you didn't have money to buy more?: never true Smoking Status: Never smoker Do you use any of these nicotine containing products: None Second hand tobacco smoke exposure: No How often do you have a drink containing alcohol: never How often do you have six or more drinks on one occasion: Never AUDIT-C Alcohol total score: 0 Non-prescribed substance use: denies use Caffeine: Yes How often does anyone, including family, friends and others, physically hurt you : never How often does anyone, including family, friends and others, insult or talk down to you: never How often does anyone, including family, friends and others, threaten you with harm: never How often does anyone, including family, friends and others, scream or curse at you: never service: Yes Exam Narrative: Exam Narrative: Constitutional: Well-developed, well-nourished, no acute distress. HEENT: Normocephalic, atraumatic. Neck: Normal range of motion. Nontender. Supple. Heart: Regular. No murmurs. Normal rate. Intact distal pulses. Lungs: Clear to auscultation. No chest discomfort. No wheezes, rhonchi, or rales. Abdomen: Normal bowel sounds. Nontender. No rebound tenderness. Genitalia: Deferred. Back: No midline tenderness. Normal range of motion. Extremities: Right elbow has decreased range of motion due to pain. There is some diffuse swelling in the elbow joint region. He localizes tenderness more in the medial aspect of his right elbow. Skin: Intact. No rash. Warm. No erythema or pallor. Neurologic: No altered sensation. No weakness. Alert and oriented. Psychiatric: No suicidality. No anxiety or depression. No insomnia. Nursing notes and vitals signs are reviewed. Const: Vital Signs, click to edit/add: Vital Signs - 24 hr 04/17/24 13:41 Temperature 97.1 F L Pulse Rate [Pulse Oximeter] 83 Respiratory Rate 16 Blood Pressure [Le ft Upper Arm] 150/92 H Pulse Oximetry 97 Oxygen Delivery Me thod Room Air Course Vital Signs Vital signs: Initial Vital Signs Temperature 97.1 F L 04/17/24 13:41 Temperature Source Temporal Artery Scan 04/17/24 13:41 Pulse Rate 83 04/17/24 13:41 Pulse Rhythm Regular 04/17/24 13:41 Respiratory Rate 16 04/17/24 13:41 Blood Pressure 150/92 H 04/17/24 13:41 Blood Pressure Mean 111 H 04/17/24 13:41 Blood Pressure Position Sitting 04/17/24 13:41 Pulse Oximetry 97 04/17/24 13:41 Oxygen Delivery Method Room Air 04/17/24 13:41 Vital Signs Temperature 97.1 F L 04/17/24 13:41 Pulse Rate 83 04/17/24 13:41 Respiratory Rate 16 04/17/24 13:41 Blood Pressure 150/92 H 04/17/24 13:41 Pulse Oximetry 97 04/17/24 13:41 Oxygen Delivery Method Room Air 04/17/24 13:41 Temperature 97.1 F L 04/17/24 13:41 Pulse Rate 83 04/17/24 13:41 Respiratory Rate 16 04/17/24 13:41 Blood Pressure 150/92 H 04/17/24 13:41 Pulse Oximetry 97 04/17/24 13:41 Oxygen Delivery Method Room Air 04/17/24 13:41 Medical Decision Making MDM Narrative Medical decision making narrative: This patient comes in with pain in his right elbow as described above. X-ray imaging shows no acute findings. The patient has not had any specific injury event to trigger this pain but states that he does do lots of jujitsu and likely is having an overuse injury. Perhaps he is experiencing some golfer's elbow or medial epicondylitis as he seems to have more pain in this aspect of his right elbow. The patient did receive a sling and prescription for Toradol and Medrol Dosepak. I advised him to follow-up with orthopedic clinic if not improving. Imaging Data XR R Elbow: Radiologist's impression: No acute osseous injuries or abnormalities are noted. Discharge Plan Discharge Clinical Impression: Elbow pain, right Patient Disposition: Home, Self-Care Condition: Stable Additional Instructions: Wear sling as needed. Take medication as prescribed. Follow-up with orthopedic clinic for ongoing management or if not improving. Call [phone] for appointment. Prescriptions: New ketorolac 10 mg tablet 10 mg PO TID 5 Days Qty: 15 0RF methylprednisolone [Medrol (Noe)] 4 mg tablets,dose pack See Rx Instructions .ROUTE .COMPLEX Qty: 21 0RF Rx Instructions: orally per package directions No Action hydrocodone-acetaminophen 5-325 mg tablet 1 tab PO Q6H PRN (Reason: pain) Qty: 25 0RF allopurinol 100 mg tablet 300 mg PO DAILY ketorolac 10 mg tablet 10 mg PO Q8H PRN (Reason: pain) Qty: 14 0RF hydrocodone-acetaminophen 5-325 mg tablet 1 - 2 tab PO Q4-6H PRN (Reason: pain) Qty: 15 0RF prednisone 20 mg tablet See Rx Instructions .ROUTE .COMPLEX Qty: 15 1RF Rx Instructions: Take 60 mg the 1st day, then 40 mg daily days 2 through 5, then 20 mg daily days 5 through 8 ketorolac 10 mg tablet 10 mg PO QID PRN (Reason: pain) 1 Days Qty: 15 1RF Follow Up/Referrals: America Card DO [Primary Care Provider] - Stand Alone Forms: [employer] Info Instructions
--- OUTSIDE RECORDS SUMMARY | 2024-04-17 15:50 | XMS_ITS | Clinical Summary ---
Author Organization [facility] Address [place], [place] [address] Care Team Providers Care Cattle Dehorner Name Role Phone America Card DO Primary Care Provider [phone] Allergies No known active allergies Medications Medication [...] for goal of uric Acid under 6. Immunizations Name Administration Dates Next Due Influenza [...] Comments Blood Pressure 116/77 09/23/2023 7:46 AM TALLIER Pulse 88 09/23/2023 7:46 AM TALLIER Temperature 36.8 ??C (98.3 ??F) 10/21/2022 1 2:04 PM TALLIER Respiratory Rate 12 01/04/2018 1:17 PM CDT Oxygen Saturation 98% 09/23/2023 7:46 AM TALLIER Inhaled Oxygen Concentration - - Weight 101.4 kg (223 lb 9.6 oz) 09/23/2023 7:46 AM TALLIER Height 177.8 cm (5' 10) 04/23/2023 10: 03 AM CDT Body Mass Index 32.08 04/23/2023 10:03 AM CDT Plan of Treatment Health Maintenance Due Date Last Done Comments Pneumococcal series for age 6-64 (1 of 2 - PCV) 1992 HIV for age 15-65 2001 Hepatitis C screening for ag e 18-79 2004 COVID-19 vaccine series (3 - 2022-24 season) 2023 01/31/2021, 01/10/2021 Depression screening for [...] AND CHOL/HDL RATIO Routine 10/24/2022 9:12 AM TALLIER Screening cholesterol level from Last 3 Months or Most Recently Relevant to Health Maintenance Results * (ABNORMAL) LC LIPID PANEL AND CHOL/HDL RATIO (10/24/2022 9:12 AM TALLIER) Cholesterol, Total 139 100 - 199 mg/dL 10/27/2022 2:07 PM [facility] Triglycerides 121 0 - 149 mg/dL 10/27/2022 2:07 PM [facility] HDL Cholesterol 31(L) >39 mg/dL 2:07 PM [facility] VLDL Cholesterol Bony 22 5 - 40 mg/dL 10/27/2022 2:07 PM [facility] LDL Chol Calc ([facility]) 86 0 - 99 mg/dL 10/27/2022 2:07 PM [facility] T. Chol/HDL Ratio 4.5 0.0 - 5.0 ratio 10/27/2022 2:07 PM TALL[facility] ([facility]) Comment: ?T. Chol/HDL Ratio ?Men ??Women ?1/2 Avg.Risk ??3.4 ?3.3 ?Avg.Risk ??5.0 ?4.4 ? 2X Avg.Risk ??9.6 ?7.1 ? 3X Avg.Risk 23.4 ?? 11.0 Blood BLOOD SPECIMEN / Unknown Venipuncture / Unknown 10/24/2022 9:12 AM TALLIER 10/24/2022 9:17 AM TALLIER Narrative [facility] - 10/27/2022 2:07 PM TALLIER Performed at: ??01 - [facility] [address] [facility], [place], [place] ??[id number] Reading Intervention Teacher: Taiwo Brock MD, Phone: ??[phone] America Card DO SEND OUTS [facility] ([facility] [address] [place] [id number], from Last 3 Months or Most Recently Relevant to Health Maintenance Care Teams Cattle Dehorner Relationship Specialty Start Date End Date America Card DO [address] [place] [address] PCP - General Internal Medicine 11/15/20
[2024-04-17 15:59] VITALS: BP 150/92; PULSE 83; RESP 16; TEMP 36.2
== END 2024-04-17 16:00 | disposition home or self-care (01) ==
PROVIDERS: Emergency Provider Emergency Medicine Emergency Medical Services; PCP Family Medicine
DX: M25.521 Pain in right elbow (principal)
CPT/HCPCS: 73080; 99283; 99284

== ENCOUNTER 2024-05-25 20:53 | Emergency (ER) | payer OTHER, SELFPAY ==
[2024-05-25 20:56] VITALS: BP 122/75; PULSE 120; RESP 16; TEMP 36.9; O2SAT 96; BMI 33.0
--- NOTE | 2024-05-25 21:38 | ED.GENADULT ---
HPI - General Adult General Date Seen: 05/25/24 Chief complaint: Extremity Pain/Injury, Lower Stated complaint: gout flare up Time Seen by Provider: 05/25/24 21:28 Source: patient Mode of arrival: ambulatory Limitations: no limitations History of Present Illness HPI narrative: Patient is a 39-year-old male presenting to the emergency department for left knee pain. States he has a history of gout and for the past few days he has been having a gout flare. Takes allopurinol at home. Has been taking ibuprofen at home to without any improvement in his symptoms. States this feels exactly like his previous gout flares and is in his left knee. Denies any fevers or chills. Denies any numbness or weakness. No other concerns noted at this time. Related Data Home Medications ?Medication ?Instructions ?Recorded ?Confirmed allopurinol 100 mg tablet 300 mg PO DAILY 09/10/22 05/25/24 Allergies Allergy/AdvReac Type Severity Reaction Status Date / Time No Known Drug Allergies Allergy Verified 04/17/24 13:40 Review of Systems Narrative: Pertinent systems reviewed and were negative unless stated in HPI PFSH PFSH Medical History Gout ?M10.9 - Gout, unspecified (ICD-10) Surgical History No significant past surgical history Social History What is your current living situation?: I presently have a place to live Problems where you live: no known problems Problems where you live details: none In past 12 months, lack of transportation kept you from medical appts, meetings, work, or getting things needed for daily living: no In the past 12 mos, have been you worried that your food would run out before you had money to buy more?: never true In the past 12 mos, the food you bought just didn't last and you didn't have money to buy more?: never true Smoking Status: Never smoker Do you use any of these nicotine containing products: None Second hand tobacco smoke exposure: No How often do you have a drink containing alcohol: never How often do you have six or more drinks on one occasion: Never AUDIT-C Alcohol total score: 0 Non-prescribed substance use: denies use Caffeine: Yes How often does anyone, including family, friends and others, physically hurt you: never How often does anyone, including family, friends and others, insult or talk down to you: never How often does anyone, including family, friends and others, threaten you with harm: never How often does anyone, including family, friends and others, scream or curse at you: never service: Yes Exam Narrative: Exam Narrative: Const: Well-nourished, Well-developed, in mild distress Eyes: PERRL, no conjunctival injection, and symmetrical lids HENT: Atraumatic external nose and ears. Moist mucous membranes. MSK:Extremities w/o deformity, decreased range of motion left knee secondary to pain. Mild swelling and warmth fell to the left knee compared to the right. Skin: Warm, Dry. No rashes or lesions. Neuro: Normal Muscle tone, No focal neurological deficits. Psych: Awake, Alert, & Oriented x3. Appropriate mood and affect. Const: Vital Signs, click to edit/add: Vital Signs - 24 hr 05/25/24 20:56 Temperature 98.5 F Pulse Rate [Pulse Oximeter] 120 H Respiratory Rate 16 Blood Pressure [Ri ght Upper Arm] 122/75 Pulse Oximetry 96 Oxygen Delivery Me thod Room Air Course Vital Signs Vital signs: Initial Vital Signs Temperature 98.5 F 05/25/24 20:56 Temperature Source Oral 05/25/24 20:56 Pulse Rate 120 H 05/25/24 20:56 Respiratory Rate 16 05/25/24 20:56 Blood Pressure 122/75 05/25/24 20:56 Blood Pressure Mean 90 05/25/24 20:56 Blood Pressure Position Sitting 05/25/24 20:56 Pulse Oximetry 96 05/25/24 20:56 Oxygen Delivery Method Room Air 05/25/24 20:56 Vital Signs Temperature 98.5 F 05/25/24 20:56 Pulse Rate 120 H 05/25/24 20:56 Respiratory Rate 16 05/25/24 20:56 Blood Pressure 122/75 05/25/24 20:56 Pulse Oximetry 96 05/25/24 20:56 Oxygen Delivery Method Room Air 05/25/24 20:56 Temperature 98.5 F 05/25/24 20:56 Pulse Rate 120 H 05/25/24 20:56 Respiratory Rate 16 05/25/24 20:56 Blood Pressure 122/75 05/25/24 20:56 Pulse Oximetry 96 05/25/24 20:56 Oxygen Delivery Method Room Air 05/25/24 20:56 Medical Decision Making MDM Narrative Medical decision making narrative: Patient is a 39-year-old male presenting for gout flare. He has a history of this and has been using his allopurinol and taking ibuprofen home. He states in the past Toradol and prednisone have helped the most with his flares. This will be prescribed from at this time. I have minimal concern for septic arthritis as previously mentioned this is just like his previous gout flares and there is no erythema around the near signs or would lead to a septic knee. He will be discharged he is agreeable to this plan. Discharge Plan Discharge Clinical Impression: Gout Qualifiers: Gout site: knee Gout etiology: unspecified cause Chronicity: acute Laterality: left Qualified Code(s): M10.9 - Gout, unspecified Patient Disposition: Home, Self-Care Condition: Stable Instructions: Gout (ED) Additional Instructions: Take the Toradol and prednisone for the next 5 days. If do not notice any improvement any symptoms I recommend follow-up with orthopedics. Return to emergency department for new or worsening symptoms. While taking Toradol do not take ibuprofen, naproxen, or other NSAIDs as that same class of drugs. Prescriptions: No Action allopurinol 100 mg tablet 300 mg PO DAILY Follow Up/Referrals: America Card DO [Primary Care Provider] - Stand Alone Forms: [employer] Info Instructions
[2024-05-25 21:43] VITALS: PULSE 97; O2SAT 98
--- OUTSIDE RECORDS SUMMARY | 2024-05-25 21:49 | XMS_ITS | Clinical Summary ---
Author Organization [facility] Address [place], [place] [address] Care Team Providers Care Bulk Cooler Installer Name Role Phone America Card DO Primary Care Provider [phone] Allergies No known active allergies Medications Medication [...] Acute idiopathic gout of right knee 11/04/2017 Overview (01/05/2018): Oct 2017: Gout diagnosis confirmed with joint [...] Comments Blood Pressure 116/77 09/23/2023 7:46 AM BOILER RIVETER Pulse 88 09/23/2023 7:46 AM BOILER RIVETER Temperature 36.8 ??C (98.3 ??F) 10/21/2022 1 2:04 PM BOILER RIVETER Respiratory Rate 12 01/04/2018 1:17 PM CDT Oxygen Saturation 98% 09/23/2023 7:46 AM BOILER RIVETER Inhaled Oxygen Concentration - - Weight 101.4 kg (223 lb 9.6 oz) 09/23/2023 7:46 AM BOILER RIVETER Height 177.8 cm (5' 10) 04/23/2023 10: 03 AM CDT Body Mass Index 32.08 04/23/2023 10:03 AM CDT Plan of Treatment Health Maintenance Due Date Last Done Comments Pneumococcal series for age 6-64 (1 of 2 - PCV) 1992 HIV for age 15-65 2001 Hepatitis C screening for ag e 18-79 2004 Depression screening for age 12+ 10/24/2023 10/24/2022, 06/21/2020, 03/22/2019, Additional history exists BMI (ht and wt on same day) for age 18+ 04/23/2024 04/23/2023, 04/21/2022, 07/24/2020, Additional history exists COVID-19 vaccine series (3 - 2022-24 season) 2024 01/31/2021, 01/10/2021 Influenza for age 9-49 2024 , 06/10/2022, 06/12/2021, Additional history exists Lipids for age 35-44 10/24/2027 10/24/2022 Tetanus booster 07/05/2028 07/05/2018, 11/12, 09/14/2008 Tdap Completed 07/05/2018, 11/29/2013 Procedures Procedure Name Priority Date/Time Associated Diagnosis Comments LC LIPID PANEL AND CHOL/HDL RATIO Routine 10/24/2022 9:12 AM BOILER RIVETER Screening cholesterol level from Last 3 Months or Most Recently Relevant to Health Maintenance Results * (ABNORMAL) LC LIPID PANEL AND CHOL/HDL RATIO (10/24/2022 9:12 AM BOILER RIVETER) Cholesterol, Total 139 100 - 199 mg/dL 10/27/2022 2:07 PM [facility] Triglycerides 121 0 - 149 mg/dL 10/27/2022 2:07 PM [facility] HDL Cholesterol 31(L) >39 mg/dL 2:07 PM [facility]) VLDL Cholesterol Bony 22 5 - 40 mg/dL 10/27/2022 2:07 PM [facility] LDL Chol Calc ([facility]) 86 0 - 99 mg/dL 10/27/2022 2:07 PM [facility] RIVET[facility] ([facility] T. Chol/HDL Ratio 4.5 0.0 - 5.0 ratio 10/27/2022 2:07 PM BO[facility] RIVETER [facility] ([facility] Comment: ?T. Chol/HDL Ratio ?Men ??Women ?1/2 Avg.Risk ??3.4 ?3.3 ?Avg.Risk ??5.0 ?4.4 ? 2X Avg.Risk ??9.6 ?7.1 ? 3X Avg.Risk 23.4 ?? 11.0 Blood BLOOD SPECIMEN / Unknown Venipuncture / Unknown 10/24/2022 9:12 AM BOILER RIVETER 10/24/2022 9:17 AM BOILER RIVETER Narrative [facility] ([facility] - 10/27/2022 2:07 PM BOILER RIVETER Performed at: ??01 - [facility] [address] [place], [place] ??[id number] Client Care Coordinator: Taiwo Brock MD, Phone: ??[phone] America Card DO SEND OUTS [facility] ([facility] [address] [place] [address], from Last 3 Months or Most Recently Relevant to Health Maintenance Care Teams Bulk Cooler Installer Relationship Specialty Start Date End Date America Card DO [address] [place] [address] PCP - General Internal Medicine 11/15/20
== END 2024-05-25 21:58 | disposition home or self-care (01) ==
PROVIDERS: Emergency Provider Student in an Organized Health Care Education/Training Program; PCP Family Medicine
DX: M10.9 Gout, unspecified (principal)
CPT/HCPCS: 99282; 99283

== ENCOUNTER 2024-06-26 03:40 | Emergency (ER) | payer SELFPAY ==
[2024-06-26 04:04] VITALS: BP 148/96; PULSE 94; RESP 16; TEMP 36.9; O2SAT 98; BMI 32.3
--- NOTE | 2024-06-26 04:10 | ED.GENADULT ---
HPI - General Adult General Chief complaint: Extremity Pain/Injury, Lower Stated complaint: Left knee and foot pain Time Seen by Provider: 06/26/24 04:05 Source: patient Mode of arrival: ambulatory Limitations: no limitations History of Present Illness HPI narrative: 39-year-old male with known previous history of gout presents to the emergency department for evaluation of what he believes is a gout flare of his left foot and ankle. No trauma or injury. Pain in this area, similar to gout flare in the past. Is on preventative allopurinol but reports that he still had at least a couple flares this year. He is unsure if he has had is uric acid levels rechecked on the medication. No fever, no skin rash. Has not tried any home treatments to help with symptoms. Last gout flare was about 2 months ago, has responded well to prednisone in the past. Is not followed by rheumatology. Previous labs and notes reviewed from ED. proven gout crystals from prior aspiration x2. No other significant past medical history other than prior history of gout. No long-term medications other than allopurinol. No known drug allergies. Nonsmoker. ROS notable for the musculoskeletal symptoms as above. Otherwise denies any other generalized, musculoskeletal neurological, respiratory, GI or cardiovascular changes. Related Data Home Medications ?Medication ?Instructions ?Recorded ?Confirmed allopurinol 100 mg tablet 300 mg PO DAILY 09/10/22 06/26/24 Previous Rx's ?Medication ?Instructions ?Recorded prednisone 20 mg tablet 20 mg PO BID #10 tabs 06/26/24 Allergies Allergy/AdvReac Type Severity Reaction Status Date / Time No Known Drug Allergies Allergy Verified 06/26/24 04:06 [facility] Medical History Gout ?M10.9 - Gout, unspecified (ICD-10) Surgical History No significant past surgical history Social History What is your current living situation?: I presently have a place to live Problems where you live: no known problems Problems where you live details: none In past 12 months, lack of transportation kept you from medical appts, meetings, work, or getting things needed for daily living: no In the past 12 mos, have been you worried that your food would run out before you had money to buy more?: never true In the past 12 mos, the food you bought just didn't last and you didn't have money to buy more?: never true Smoking Status: Never smoker Do you use any of these nicotine containing products: None Second hand tobacco smoke exposure: No How often do you have a drink containing alcohol: never How often do you have six or more drinks on one occasion: Never AUDIT-C Alcohol total score: 0 Non-prescribed substance use: denies use Caffeine: Yes How often does anyone, including family, friends and others, physically hurt you: never How often does anyone, including family, friends and others, insult or talk down to you: never How often does anyone, including family, friends and others, threaten you with harm: never How often does anyone, including family, friends and others, scream or curse at you: never service: Yes Exam Const: Vital Signs, click to edit/add: Vital Signs - 24 hr 06/26/24 04:04 Temperature 98.4 F Pulse Rate [Pulse Oximeter] 94 Respiratory Rate 16 Blood Pressure [Le ft Upper Arm] 148/96 H Pulse Oximetry 98 Oxygen Delivery Me thod Room Air Documenting provider has reviewed patient's vital signs: yes Common normals: no apparent distress General appearance: cooperative HENMT: Common normals: normocephalic Head and scalp: normocephalic Face and sinus: normal facial exam Eye: General eye: normal appearance of both eyes Resp: Common normals: normal respiratory effort Effort & inspection: able to speak in complete sentences Extremity: Other: Right leg, foot and ankle appear normal. No swelling, redness, point bony tenderness or deformity. Left ankle has mild effusion and is exquisitely tender to palpation but no redness or warmth today. Similar 1st MTP joint. Other joints do not seem effected. Can flex and extend but with tenderness. No open sores, rashes or abrasions. Knee and upper leg are not affected. These are normal in appearance. Neuro: Speech: speech normal Motor exam: no movement abnormalities noted Psych: Activity/motor behavior: appropriate eye contact Mood and affect: euthymic mood Skin: Common normals: no rashes or lesions noted General skin exam: no rashes or lesions noted Course Course ED Course: 39-year-old male with previous history of gout presenting with flare that is suspicious for gout. No fevers, redness, signs of septic arthritis, inflammatory arthritis, tick-borne disease, cellulitis or rash. Do not recommend further workup at this time. He will continue allopurinol. Prednisone 60 mg p.o. x1 then continue on 20 b.i.d. for 3 days, then once daily for an additional 3 days. Toradol 30 mg IM given x1 here in the ED. Tylenol 1000 mg p.o. x1. Offered oxycodone from [employer], he declines this. Prescription for prednisone sent to pharmacy. Counseled on [id number] Tylenol and ibuprofen. Primary care follow-up if not improving in 3-4 days. Encouraged follow-up in a couple of weeks to recheck uric acid levels and consider referral to Rheumatology if uric acid is therapeutic and he is still having this many flares. Vital Signs Vital signs: Initial Vital Signs Temperature 98.4 F 06/26/24 04:04 Temperature Source Temporal Artery Scan 06/26/24 04:04 Pulse Rate 94 06/26/24 04:04 Respiratory Rate 16 06/26/24 04:04 Blood Pressure 148/96 H 06/26/24 04:04 Blood Pressure Mean 113 H 06/26/24 04:04 Blood Pressure Position Sitting 06/26/24 04:04 Pulse Oximetry 98 06/26/24 04:04 Oxygen Delivery Method Room Air 06/26/24 04:04 Vital Signs Temperature 98.4 F 06/26/24 04:04 Pulse Rate 94 06/26/24 04:04 Respiratory Rate 16 06/26/24 04:04 Blood Pressure 148/96 H 06/26/24 04:04 Pulse Oximetry 98 06/26/24 04:04 Oxygen Delivery Method Room Air 06/26/24 04:04 Temperature 98.4 F 06/26/24 04:04 Pulse Rate 94 06/26/24 04:04 Respiratory Rate 16 06/26/24 04:04 Blood Pressure 148/96 H 06/26/24 04:04 Pulse Oximetry 98 06/26/24 04:04 Oxygen Delivery Method Room Air 06/26/24 04:04 Discharge Plan Discharge Clinical Impression: Gout of left ankle Patient Disposition: Home, Self-Care Condition: Stable Instructions: Low Purine Diet (ED), Gout (ED) Additional Instructions: I agree with you, this looks like another gout flare. I am sorry that you continue to have these flares even on the allopurinol. Please note that there are more treatment options available to you and I am not sure if your dose of allopurinol has been completely titrated. If you have not checked in with your primary care provider, please do so in a couple of weeks once this flare is over. For the gout, your given a shot of Toradol for pain as well as Tylenol. You were started on prednisone which is the anti-inflammatory medication that helps calm down the gout. He will continue taking that medication twice daily for the next 3 days, then once daily for 3 days. Knee using Tylenol 1000 mg every 6 hours and or ibuprofen 600 mg every 6 hours. Ice, elevate as able. He will not do more damage by continuing to work on this. If you have high fevers, significant worsening or are unable to bear weight at all, please come back to emergency room. Activity Level: Activity as Tolerated Discharge Diet: Regular Prescriptions: New prednisone 20 mg tablet 20 mg PO BID Qty: 10 0RF No Action allopurinol 100 mg tablet 300 mg PO DAILY Follow Up/Referrals: America Card DO [Primary Care Provider] - Stand Alone Forms: [employer] Info Instructions
[2024-06-26] MEDS: ACETAMINOPHEN 500 MG TABLET 1000 MG PO (04:18)
[2024-06-26] MEDS: KETOROLAC 30 MG/ML inj IM (04:18)
[2024-06-26] MEDS: predniSONE 20 MG TABLET 60 MG PO (04:18)
--- OUTSIDE RECORDS SUMMARY | 2024-06-26 04:20 | XMS_ITS | Clinical Summary ---
Author Organization [facility] Address [place], [place] [address] Care Team Providers Care Computer Software Engineer Name Role Phone America Card DO Primary Care Provider [phone] Allergies No known active allergies Medications Medication [...] Comments Blood Pressure 116/77 09/23/2023 7:46 AM GARBAGE TRUCK DISPATCHER Pulse 88 09/23/2023 7:46 AM GARBAGE TRUCK DISPATCHER Temperature 36.8 ??C (98.3 ??F) 10/21/2022 1 2:04 PM GARBAGE TRUCK DISPATCHER Respiratory Rate 12 01/04/2018 1:17 PM CDT Oxygen Saturation 98% 09/23/2023 7:46 AM GARBAGE TRUCK DISPATCHER Inhaled Oxygen Concentration - - Weight 101.4 kg (223 lb 9.6 oz) 09/23/2023 7:46 AM GARBAGE TRUCK DISPATCHER Height 177.8 cm (5' 10) 04/23/2023 10: [...] history exists COVID-19 vaccine series (3 - 2023- season) 2024 01/31/2021, 01/10/2021 Influenza for age 9-49 2024 , 06/10/2022, 06/12/2021, Additional history exists Lipids for age 35-44 10/24/2027 10/24/2022 Tetanus booster 07/05/2028 07/05/2018, 11/12, 09/14/2008 Tdap Completed 07/05/2018, 11/29/2013 Procedures Procedure Name Priority Date/Time Associated Diagnosis Comments LC LIPID PANEL AND CHOL/HDL RATIO Routine 10/24/2022 9:12 AM GARBAGE TRUCK DISPATCHER Screening cholesterol level from Last 3 Months or Most Recently Relevant to Health Maintenance Results * (ABNORMAL) LC LIPID PANEL AND CHOL/HDL RATIO (10/24/2022 9:12 AM GARBAGE TRUCK DISPATCHER) Cholesterol, Total 139 100 - 199 mg/dL 10/27/2022 2:07 PM GARBAGE TRUCK DISPATCHER [facility] Triglycerides 121 0 - 149 mg/dL 10/27/2022 2:07 PM GARBAGE TRUCK DISPATCHER [facility] HDL Cholesterol 31(L) >39 mg/dL 2:07 PM GARBAGE TRUCK DISPATCHER [facility] VLDL Cholesterol Bony 22 5 - 40 mg/dL 10/27/2022 2:07 PM GARBAGE TRUCK DISPATCHER [facility] LDL Chol Calc (NIH) 86 0 - 99 mg/dL 10/27/2022 2:07 PM GARBAGE TRUCK DISPATCHER [facility] T. Chol/HDL Ratio 4.5 0.0 - 5.0 ratio 10/27/2022 2:07 PM GARBAGE TRUCK DISPATCHER [facility] Comment: ?T. Chol/HDL Ratio ?Men ??Women ?1/2 Avg.Risk ??3.4 ?3.3 ?Avg.Risk ??5.0 ?4.4 ? 2X Avg.Risk ??9.6 ?7.1 ? 3X Avg.Risk 23.4 ?? 11.0 Blood BLOOD SPECIMEN / Unknown Venipuncture / Unknown 10/24/2022 9:12 AM GARBAGE TRUCK DISPATCHER 10/24/2022 9:17 AM GARBAGE TRUCK DISPATCHER Narrative [facility] - 10/27/2022 2:07 PM GARBAGE TRUCK DISPATCHER Performed at: ??01 - [facility] [address] [place], [place] ??[id number] Fur Designer: Taiwo Brock MD, Phone: ??[phone] America Card DO SEND OUTS [facility] [address] [place] [address], from Last 3 Months or Most Recently Relevant to Health Maintenance Care Teams Computer Software Engineer Relationship Specialty Start Date End Date America Card DO [address] [place] [address] PCP - General Internal Medicine 11/15/20
== END 2024-06-26 05:11 | disposition home or self-care (01) ==
LOC: ED 04:18
PROVIDERS: Emergency Provider Family Medicine; PCP Family Medicine
DX: M10.9 Gout, unspecified (principal)
CPT/HCPCS: 96372; 99283; A9270; J1885; J7512

== ENCOUNTER 2024-07-24 12:04 | Emergency (ER) | payer OTHER, SELFPAY ==
[2024-07-24 12:14] VITALS: BP 148/100; PULSE 95; RESP 20; TEMP 36.5; O2SAT 99; BMI 32.3
--- NOTE | 2024-07-24 12:21 | ED_ITS ---
HPI - General Adult General Time Seen by Provider: 12:21 Date Seen: 07/24/24 Chief complaint: Extremity Pain/Injury, Lower Stated complaint: Gout flare up Time Seen by Provider: 07/24/24 12:08 Source: patient and RN notes reviewed Mode of arrival: ambulatory Limitations: no limitations History of Present Illness HPI narrative: This 39-year-old male is coming in with a gout flare in his left knee. He was up [place], symptoms just started, he had to drive home. He states the drive was excruciating. There is no trauma to the knee, he has had no fevers or chills. He states this is simply gout. He did have an appointment with a specialist but the day before that appointment he lost his job and his insurance. He states he is going to contact his primary to get this appointment rescheduled as he states he cannot live this way. He has had gout flares in June and May proceeding. He states his dad is overweight, eats red meat, drinks alcohol and just takes 1 pill of allopurinol and never has gout. He has recurrent episodes that have been confirmed with crystal aspirates per report. He states he exercises, eats healthy and has recurrent frequent gout. He did use indomethacin in the past but it did not really not help as much as prednisone does. He is aware that recurrent prednisone use carries risks but it is really what works for him. Toradol does significantly help. Last time he was in he was offered narcotic pain medicines but declined. I did discuss this with him today, he would be willing to have some on hand, he states this is excruciating in his knee. Patient has not had any time to ice the knee, had to drive back from up [place]. Related Data Home Medications ?Medication ?Instructions ?Recorded ?Confirmed allopurinol 100 mg tablet 300 mg PO DAILY 09/10/22 06/26/24 Previous Rx's ?Medication ?Instructions ?Recorded prednisone 20 mg tablet 20 mg PO BID #10 tabs 06/26/24 Allergies Allergy/AdvReac Type Severity Reaction Status Date / Time No Known Drug Allergies Allergy Verified 07/24/24 12:14 Review of Systems Narrative: As per HPI. PFS PFS Medical History Gout ?M10.9 - Gout, unspecified (ICD-10) Surgical History No significant past surgical history Social History What is your current living situation?: I presently have a place to live Problems where you live: no known problems Problems where you live details: none In past 12 months, lack of transportation kept you from medical appts, meetings, work, or getting things needed for daily living: no In the past 12 mos, have been you worried that your food would run out before you had money to buy more?: never true In the past 12 mos, the food you bought just didn't last and you didn't have money to buy more?: never true Smoking Status: Never smoker Do you use any of these nicotine containing products: None Second hand tobacco smoke exposure: No How often do you have a drink containing alcohol: never How often do you have six or more drinks on one occasion: Never AUDIT-C Alcohol total score: 0 Non-prescribed substance use: denies use Caffeine: Yes How often does anyone, including family, friends and others, physically hurt you : never How often does anyone, including family, friends and others, insult or talk down to you: never How often does anyone, including family, friends and others, threaten you with harm: never How often does anyone, including family, friends and others, scream or curse at you: never service: Yes Exam Const: Vital Signs, click to edit/add: Vital Signs - 24 hr 07/24/24 12:14 Temperature 97.7 F Pulse Rate [Pulse Oximeter] 95 Respiratory Rate 20 Blood Pressure [Ri ght Upper Arm] 148/100 H Pulse Oximetry 99 Oxygen Delivery Me thod Room Air This 39-year-old male is alert, interactive, no apparent distress. CV regular rate and rhythm no murmur. He has significant pain with any range of motion of his left knee. He did take down his pants so that I could visualize the knee, the left knee joint is swollen, no significant erythema but is definitely warm. Any palpation of the joint, any range of motion is very painful. Documenting provider has reviewed patient's vital signs: yes Course Course ED Course: Agree with patient that this is very likely gout flare. Will give him 30 mg IM Toradol here as this is worked quite well for pain in the past. Will give him 60 mg oral prednisone here. Will take prednisone prescription from [facility] as well as 4 tablets of oxycodone 5 mg. Vital Signs Vital signs: Initial Vital Signs Temperature 97.7 F 07/24/24 12:14 Temperature Source Temporal Artery Scan 07/24/24 12:14 Pulse Rate 95 07/24/24 12:14 Respiratory Rate 20 07/24/24 12:14 Blood Pressure 148/100 H 07/24/24 12:14 Blood Pressure Mean 116 H 07/24/24 12:14 Blood Pressure Position High-Fowlers 07/24/24 12:14 Pulse Oximetry 99 07/24/24 12:14 Oxygen Delivery Method Room Air 07/24/24 12:14 Vital Signs Temperature 97.7 F 07/24/24 12:14 Pulse Rate 95 07/24/24 12:14 Respiratory Rate 20 07/24/24 12:14 Blood Pressure 148/100 H 07/24/24 12:14 Pulse Oximetry 99 07/24/24 12:14 Oxygen Delivery Method Room Air 07/24/24 12:14 Temperature 97.7 F 07/24/24 12:14 Pulse Rate 95 07/24/24 12:14 Respiratory Rate 20 07/24/24 12:14 Blood Pressure 148/100 H 07/24/24 12:14 Pulse Oximetry 99 07/24/24 12:14 Oxygen Delivery Method Room Air 07/24/24 12:14 Discharge Plan Discharge Clinical Impression: Gout flare Qualifiers: Gout site: knee Gout etiology: unspecified cause Laterality: left Qualified Code(s): M10.9 - Gout, unspecified Patient Disposition: Home, Self-Care Condition: Stable Instructions: Low Purine Diet (ED), Gout (ED) Additional Instructions: Start prednisone 20 mg twice a day with food tomorrow. A few tablets of oxycodone have been prescribed as well, this is narcotic and need to follow restrictions on handout. Tylenol 1000 mg 3 times a day for pain management. Can supplement with ibuprofen per bottle directions as long as it does not bother your stomach while you are on the prednisone. Please contact her primary care provider to get scheduled for specialty referral again. If you are not improving with this management, have worsening pain, develops fevers or have further concerns, please seek re-evaluation. Activity Level: Activity as Tolerated Prescriptions: No Action allopurinol 100 mg tablet 300 mg PO DAILY prednisone 20 mg tablet 20 mg PO BID Qty: 10 0RF Follow Up/Referrals: America Card DO [Primary Care Provider] - Stand Alone Forms: [employer] Info Instructions
[2024-07-24] MEDS: predniSONE 20 MG TABLET 60 MG PO (12:36)
[2024-07-24] MEDS: KETOROLAC 30 MG/ML inj IM (12:37)
--- OUTSIDE RECORDS SUMMARY | 2024-07-24 12:42 | XMS_ITS | Clinical Summary ---
Author Organization [facility] Address [place], [place] [address] Care Team Providers Care Data Warehouse Manager Name Role Phone America Card DO Primary Care Provider [phone] Allergies No known active allergies Medications Medication [...] Comments Blood Pressure 116/77 09/23/2023 7:46 AM EXCEPTIONAL STUDENT EDUCATION TEACHER Pulse 88 09/23/2023 7:46 AM EXCEPTIONAL STUDENT EDUCATION TEACHER Temperature 36.8 ??C (98.3 ??F) 10/21/2022 1 2:04 PM EXCEPTIONAL STUDENT EDUCATION TEACHER Respiratory Rate 12 01/04/2018 1:17 PM CDT Oxygen Saturation 98% 09/23/2023 7:46 AM EXCEPTIONAL STUDENT EDUCATION TEACHER Inhaled Oxygen Concentration - - Weight 101.4 kg (223 lb 9.6 oz) 09/23/2023 7:46 AM EXCEPTIONAL STUDENT EDUCATION TEACHER Height 177.8 cm (5' 10) 04/23/2023 10: [...] AND CHOL/HDL RATIO Routine 10/24/2022 9:12 AM EXCEPTIONAL STUDENT EDUCATION TEACHER Screening cholesterol level from Last 3 Months or Most Recently Relevant to Health Maintenance Results * (ABNORMAL) LC LIPID PANEL AND CHOL/HDL RATIO (10/24/2022 9:12 AM EXCEPTIONAL STUDENT EDUCATION TEACHER) Cholesterol, Total 139 100 - 199 mg/dL 10/27/2022 2:07 PM EXCEPTIONAL STUDENT EDUCATION TEACHER [facility] Triglycerides 121 0 - 149 mg/dL 10/27/2022 2:07 PM EXCEPTIONAL STUDENT EDUCATION TEACHER [facility] HDL Cholesterol 31(L) >39 mg/dL 2:07 PM EXCEPTIONAL STUDENT EDUCATION TEACHER [facility] VLDL Cholesterol Bony 22 5 - 40 mg/dL 10/27/2022 2:07 PM EXCEPTIONAL STUDENT EDUCATION TEACHER [facility] LDL Chol Calc (NIH) 86 0 - 99 mg/dL 10/27/2022 2:07 PM EXCEPTIONAL STUDENT EDUCATION TEACHER [facility] T. Chol/HDL Ratio 4.5 0.0 - 5.0 ratio 10/27/2022 2:07 PM EXCEPTIONAL STUDENT EDUCATION TEACHER [facility] Comment: ?T. Chol/HDL Ratio ?Men ??Women ?1/2 Avg.Risk ??3.4 ?3.3 ?Avg.Risk ??5.0 ?4.4 ? 2X Avg.Risk ??9.6 ?7.1 ? 3X Avg.Risk 23.4 ?? 11.0 Blood BLOOD SPECIMEN / Unknown Venipuncture / Unknown 10/24/2022 9:12 AM EXCEPTIONAL STUDENT EDUCATION TEACHER 10/24/2022 9:17 AM EXCEPTIONAL STUDENT EDUCATION TEACHER Narrative [facility] - 10/27/2022 2:07 PM EXCEPTIONAL STUDENT EDUCATION TEACHER Performed at: ??01 - [facility] [address] [place], [place] ??[id number] Metallurgical Engineering Technician: Taiwo Brock MD, Phone: ??[phone] America Card DO SEND OUTS [facility] [address] [place] [address], from Last 3 Months or Most Recently Relevant to Health Maintenance Care Teams Data Warehouse Manager Relationship Specialty Start Date End Date America Card DO [address] [place] [address] PCP - General Internal Medicine 11/15/20
== END 2024-07-24 12:45 | disposition home or self-care (01) ==
LOC: ED 12:41
PROVIDERS: Emergency Provider Family Medicine; PCP Family Medicine
DX: M10.9 Gout, unspecified (principal)
CPT/HCPCS: 96372; 99283; 99284; J1885; J7512

== ENCOUNTER 2025-02-16 23:56 | Emergency (ER) | payer OTHER, SELFPAY ==
--- OUTSIDE RECORDS SUMMARY | 2025-02-16 23:58 | XMS_ITS | Clinical Summary ---
Author Organization [employer] [facility] Address [address] [place] [id number] Care Team Providers Care Pizza Hut Assistant Name Role Phone America Card DO Primary Care Provider [phone] Allergies No known active allergies Medications hydrocortisone (ANUSOL-HC) 2.5 % rectal creamIndications :Hemorrhoids, external Apply topically to affected area(s) two times daily. 28 g 3 3 Active HYDROcodone-acet aminophen (5-325 mg/tablet) TAKE ONE TABLET BY MOUTH EVERY SIX HOURS NEEDED FOR PAIN* 3 Active indomethacin (INDOCIN) 50 mg capsuleIndicatio ns:Acute gout of multiple sites, unspecified cause Take 1 Capsule (50 mg) by mouth three times daily with meals. Discontinue 2 days after gout flare resolves 21 Capsule 3 Active ketorolac (TORADOL) 10 mg tablet Take 10 mg by mouth every 6 hours if needed for Pain. 3 Active allopurinoL (ZYLOPRIM) 100 mg tabletIndication s:Chronic gout of right knee, unspecified cause Take 4 Tablets (400 mg) by mouth once daily. 4 Active Active Problems Problem Noted Date Diagnosed Date Alcohol abuse 02/03/2019 Generalized anxiety disorder 02/03/2019 Psychophysiological insomnia 02/03/2019 Acute idiopathic gout of right knee 11/04/2017 Overview (01/05/2018): Oct 2017: Gout diagnosis confirmed with joint aspiration of right knee showing gout crystals. December 2017: Saw Dr. Horta for rheumatoid consult, agreed with continue allopurinol for goal of uric Acid under 6. Immunizations Immunization Administration Dates Next Due Influenza Virus, Unspecified [...] Recorded Sex Assigned at Not on file Legal Sex Male 6:42 AM EMISSIONS ENGINEER Gender Identity Not on file Sexual Orientation Not on file Occupation Industry Job Start Date Job End Date Not on file Not on file Not on file Not on file Obstetrics History Last Filed Vital Signs Vital Sign Reading Time Taken Comments Blood Pressure 116/77 09/23/2023 7:46 AM EMISSIONS ENGINEER Pulse 88 09/23/2023 7:46 AM EMISSIONS ENGINEER Temperature 36.8 C (98.3 F) 10/21/2022 12:04 PM EMISSIONS ENGINEER Respiratory Rate 12 01/04/2018 1:17 PM CDT Oxygen Saturation 98% 09/23/2023 7:46 AM EMISSIONS ENGINEER Inhaled Oxygen Concentration - - Weight 101.4 kg (223 lb 9.6 oz) 09/23/2023 7:46 AM EMISSIONS ENGINEER Height 177.8 cm (5' 10) 04/23/2023 10: 03 AM CDT Body Mass Index 32.08 04/23/2023 10:03 AM CDT Plan of Treatment Health Maintenance Due Date Last Done Comments HIV for age 15-65 2001 Hepatitis C screening for ag e 18-79 2004 Hepatitis B series for 19+ ( 1 of 3 - 19+ 3-dose series) 2005 Pneumococcal series for age 6-49 (1 of 2 - PCV) 2005 Depression screening for age 12+ 10/24/2023 10/24/2022, 06/21/2020, 03/22/2019, Additional history exists BMI (ht and wt on same day) for age 18+ 04/23/2024 04/23/2023, 04/21/2022, 07/24/2020, Additional history exists COVID-19 vaccine series ( season) 2024 01/31/2021, 01/10/2021 Influenza Vaccine (Season Ended) 2025 06/10/2022, 06/10/2022, 06/12/2021, Additional history exists Lipids for age 35-44 10/24/2027 10/24/2022 Tetanus booster 07/05/2028 07/05/2018, 11/12, 09/14/2008 Tdap Completed 07/05/2018, 11/29/2013 Procedures Procedure Name Priority Date/Time Associated Diagnosis Comments LC LIPID PANEL AND CHOL/HDL RATIO Routine 10/24/2022 9:12 AM EMISSIONS ENGINEER Screening cholesterol level from Last 3 Months or Most Recently Relevant to Health Maintenance Results * (ABNORMAL) LC LIPID PANEL AND CHOL/HDL RATIO (10/24/2022 9:12 AM EMISSIONS ENGINEER) Cholesterol, Total 139 100 - 199 mg/dL 10/27/2022 2:07 PM [facility]) Triglycerides 121 0 - 149 mg/dL 10/27/2022 2:07 PM [facility] ([facility]ET) HDL Cholesterol 31(L) >39 mg/dL 2:07 PM [facility] ([facility]ET) VLDL Cholesterol Bony 22 5 - 40 mg/dL 10/27/2022 2:07 PM [facility] (CET) LDL Chol Calc ([facility]) 86 0 - 99 mg/dL 10/27/2022 2:07 PM [facility] (CET) T. Chol/HDL Ratio 4.5 0.0 - 5.0 ratio 10/27/2022 2:07 PM [facility] (CET) Comment: T. Chol/HDL Ratio Men Women 1/2 Avg.Risk 3.4 3.3 Avg.Risk 5.0 4.4 2X Avg.Risk 9.6 7.1 3X Avg.Risk 23.4 11.0 Blood BLOOD SPECIMEN / Unknown Venipuncture / Unknown 10/24/2022 9:12 AM EMISSIONS ENGINEER 10/24/2022 9:17 AM EMISSIONS ENGINEER Narrative [facility] (CET) - 10/27/2022 2:07 PM EMISSIONS ENGINEER Performed at: [address] [id number] Foundry Worker Apprentice: Taiwo Brock MD, Phone: [phone] us America Card DO SEND OUTS Final Result [facility] (CET) [address] [place] [address] from Last 3 Months or Most Recently Relevant to Health Maintenance Insurance [address]ER [id number] [phone] (Home) ATTN: CHELSEA FINK [phone] [id number] * Guarantor: [employer] [facility] Account Type Relation to Patient Date of Phone Billing Address [facility] Employer 09/[address]/1999 [address] [place] [address] Care Teams Pizza Hut Assistant Relationship Specialty Start Date End Date America Card DO Shabb[place] [address] PCP - General Internal Medicine 11/15/20
[2025-02-17 00:01] VITALS: BP 133/78; PULSE 72; RESP 16; TEMP 36.7; O2SAT 98; BMI 28.3
--- NOTE | 2025-02-17 00:13 | ED.GENADULT ---
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 He has been working the bag little bit harder now has pain over the left AC joint. He has had no recent traumatic injury. He thinks he may be over did it the last several days has been taking Tylenol Motrin with limited effect. He has no radicular symptoms no head neck symptoms no numbness no tingling. The pain is moderate in localized to the left AC. Related Data Home Medications ?Medication ?Instructions ?Recorded ?Confirmed No Known Home Medications 02/17/25 02/17/25 Allergies Allergy/AdvReac Type Severity Reaction Status Date / Time No Known Drug Allergies Allergy Verified 07/24/24 12:14 Review of Systems Status of ROS: Reports: 10 or more systems reviewed and unremarkable except as noted in History and below [facility] Medical History Gout ?M10.9 - Gout, unspecified (ICD-10) Surgical History No significant past surgical history Social History What is your current living situation?: I presently have a place to live Problems where you live: no known problems Problems where you live details: none In past 12 months, lack of transportation kept you from medical appts, meetings, work, or getting things needed for daily living: no In the past 12 mos, have been you worried that your food would run out before you had money to buy more?: never true In the past 12 mos, the food you bought just didn't last and you didn't have money to buy more?: never true Smoking Status: Never smoker Do you use any of these nicotine containing products: None Second hand tobacco smoke exposure: No How often do you have a drink containing alcohol: never How often do you have six or more drinks on one occasion: Never AUDIT-C Alcohol total score: 0 Non-prescribed substance use: denies use Caffeine: Yes How often does anyone, including family, friends and others, physically hurt you: never How often does anyone, including family, friends and others, insult or talk down to you: never How often does anyone, including family, friends and others, threaten you with harm: never How often does anyone, including family, friends and others, scream or curse at you: never service: Yes Exam Narrative: Exam Narrative: EXAM GENERAL: Patient appears comfortable and well. EYES: No scleral icterus. ENT: Tympanic membranes and oropharynx normal. THYROID: no thyroid nodules or thyromegaly. LYMPH: No supraclavicular or cervical lymphadenopathy. SKIN: Visible skin seen during exam normal or with benign process only. EXT: No dependent lower extremity pedal edema. HEART: Regular rate and rhythm with no murmurs, rubs, or gallops. LUNGS: Clear to auscultation bilaterally with no crackles or wheezes. ABD: Soft, non tender, non distended. PSYCH: Good eye contact, speech is not pressured. Const: Vital Signs, click to edit/add: Vital Signs - 24 hr 02/17/25 00:01 Temperature 98.1 F Pulse Rate [Pulse Oximeter] 72 Respiratory Rate 16 Blood Pressure [Ri ght Upper Arm] 133/78 Pulse Oximetry 98 Oxygen Delivery Me thod Room Air Course Vital Signs Vital signs: Initial Vital Signs Temperature 98.1 F 02/17/25 00:01 Temperature Source Temporal Artery Scan 02/17/25 00:01 Pulse Rate 72 02/17/25 00:01 Respiratory Rate 16 02/17/25 00:01 Blood Pressure 133/78 02/17/25 00:01 Blood Pressure Mean 96 02/17/25 00:01 Blood Pressure Position Sitting 02/17/25 00:01 Pulse Oximetry 98 02/17/25 00:01 Oxygen Delivery Method Room Air 02/17/25 00:01 Vital Signs Temperature 98.1 F 02/17/25 00:01 Pulse Rate 72 02/17/25 00:01 Respiratory Rate 16 02/17/25 00:01 Blood Pressure 133/78 02/17/25 00:01 Pulse Oximetry 98 02/17/25 00:01 Oxygen Delivery Method Room Air 02/17/25 00:01 Temperature 98.1 F 02/17/25 00:01 Pulse Rate 72 02/17/25 00:01 Respiratory Rate 16 02/17/25 00:01 Blood Pressure 133/78 02/17/25 00:01 Pulse Oximetry 98 02/17/25 00:01 Oxygen Delivery Method Room Air 02/17/25 00:01 Medical Decision Making MDM Narrative Medical decision making narrative: Patient is a 39-year-old gentleman comes in today with a mL strain. He has tried [id number] anti-inflammatories and is requesting a shot of Toradol. We did given 30 mg of Toradol and I did place him on a 5 day course of prednisone I did give him limited number of Vicodin to help him get some rest. He can apply ice and follow-up as needed. Discharge Plan Discharge Clinical Impression: Acromioclavicular sprain Patient Disposition: Home, Self-Care Condition: Stable Instructions: Shoulder Sprain (ED) Additional Instructions: prednisone 20 mg twice daily for 5 days. Vicodin as needed for pain no driving or using any machinery. Ice rest follow-up with your doctor as needed. Activity Level: No Restrictions Discharge Diet: Regular Prescriptions: No Action No Known Home Medications Follow Up/Referrals: America Card DO [Primary Care Provider, Family Practice] Stand Alone Forms: [facility] Info Instructions
[2025-02-17 00:17] VITALS: TEMP 36.7
[2025-02-17] MEDS: KETOROLAC 30 MG/ML inj IM (00:17)
[2025-02-17 00:22] VITALS: BP 129/78; PULSE 75; RESP 16; TEMP 36.7; O2SAT 98
[2025-02-17 00:23] VITALS: BP 129/78; PULSE 75; RESP 16; TEMP 36.7
--- OUTSIDE RECORDS SUMMARY | 2025-02-17 00:23 | XMS_ITS | Clinical Summary ---
Author Organization [employer] [facility] Address [address] [place] [address] Care Team Providers Care Security Monitor Name Role Phone America Card DO Primary Care Provider [phone] Allergies No known active allergies Medications hydrocortisone [...] on file Legal Sex Male 6:42 AM BACCARAT MANAGER Gender Identity Not on file Sexual Orientation Not on file Occupation Industry Job Start Date Job End Date Not on file Not on file Not on file Not on file Obstetrics History Last Filed Vital Signs Vital Sign Reading Time Taken Comments Blood Pressure 116/77 09/23/2023 7:46 AM BACCARAT MANAGER Pulse 88 09/23/2023 7:46 AM BACCARAT MANAGER Temperature 36.8 C (98.3 F) 10/21/2022 12:04 PM BACCARAT MANAGER Respiratory Rate 12 01/04/2018 1:17 PM CDT Oxygen Saturation 98% 09/23/2023 7:46 AM BACCARAT MANAGER Inhaled Oxygen Concentration - - Weight 101.4 kg (223 lb 9.6 oz) 09/23/2023 7:46 AM BACCARAT MANAGER Height 177.8 cm (5' 10) 04/23/2023 10: [...] AND CHOL/HDL RATIO Routine 10/24/2022 9:12 AM BACCARAT MANAGER Screening cholesterol level from Last 3 Months or Most Recently Relevant to Health Maintenance Results * (ABNORMAL) LC LIPID PANEL AND CHOL/HDL RATIO (10/24/2022 9:12 AM BACCARAT MANAGER) Cholesterol, Total 139 100 - 199 mg/dL 10/27/2022 2:07 PM [facility] (CET) Triglycerides 121 0 - 149 mg/dL 10/27/2022 2:07 PM [facility] ([facility]ET) HDL Cholesterol 31(L) >39 mg/dL 2:07 PM [facility] (CET) VLDL Cholesterol Bony 22 5 - 40 mg/dL 10/27/2022 2:07 PM [facility] (CET) LDL Chol Calc ([facility]) 86 0 - 99 mg/dL 10/27/2022 2:07 PM [facility] (CET) T. Chol/HDL Ratio 4.5 0.0 - 5.0 ratio 10/27/2022 2:07 PM [facility] (CET) Comment: T. Chol/HDL Ratio Men Women 1/2 Avg.Risk 3.4 3.3 Avg.Risk 5.0 4.4 2X Avg.Risk 9.6 7.1 3X Avg.Risk 23.4 11.0 Blood BLOOD SPECIMEN / Unknown Venipuncture / Unknown 10/24/2022 9:12 AM BACCARAT MANAGER 10/24/2022 9:17 AM BACCARAT MANAGER Narrative [facility] (CET) - 10/27/2022 2:07 PM BACCARAT MANAGER Performed at: [address] [id number] Vb Developer: Taiwo Brock MD, Phone: [phone] us America Card DO SEND OUTS Final Result [facility] (CET) [address] [place] [address] from Last 3 Months or Most Recently Relevant to Health Maintenance Insurance BENI WALLER [id number] [phone] (Home) ATTN: CHELSEA FINK [phone] [id number] * Guarantor: [employer] [facility] Account Type Relation to Patient Date of Phone Billing Address [facility] Employer [address] [place] [address] Care Teams Security Monitor Relationship Specialty Start Date End Date America Card DO Shabbir [facility] [place] [address] PCP - General Internal Medicine 11/15/20
== END 2025-02-17 00:23 | disposition home or self-care (01) ==
LOC: ED 02-17 00:20
PROVIDERS: Emergency Provider Internal Medicine; PCP Family Medicine
DX: S43.52XA Sprain of left acromioclavicular joint, initial encounter (principal)
CPT/HCPCS: 96372; 99283; 99284; J1885

== ENCOUNTER 2025-04-04 23:57 | Emergency (ER) | payer OTHER, SELFPAY ==
--- OUTSIDE RECORDS SUMMARY | 2025-04-04 23:59 | XMS_ITS | Clinical Summary ---
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 Gender Identity Not on file Sexual Orientation Not on file Occupation Industry Job Start Date Job End Date Not on file Not on file Not on file Not on file Obstetrics History Last Filed Vital Signs Vital Sign Reading Time Taken Comments Blood Pressure 116/77 09/23/2023 7:46 AM MARINE RADIO INSTALLER AND SERVICER Pulse 88 09/23/2023 7:46 AM MARINE RADIO INSTALLER AND SERVICER Temperature 36.8 C (98.3 F) 10/21/2022 12:04 PM MARINE RADIO INSTALLER AND SERVICER Respiratory Rate 12 01/04/2018 1:17 PM CDT Oxygen Saturation 98% 09/23/2023 7:46 AM MARINE RADIO INSTALLER AND SERVICER Inhaled Oxygen Concentration - - Weight 101.4 kg (223 lb 9.6 oz) 09/23/2023 7:46 AM MARINE RADIO INSTALLER AND SERVICER Height 177.8 cm (5' 10) 04/23/2023 10: [...] ( season) 2024 01/31/2021, 01/10/2021 Influenza Vaccine (#1) 2025 , 06/10/2022, 06/12/2021, Additional history exists Lipids for age 35-44 10/24/2027 10/24/2022 Tetanus booster 07/05/2028 07/05/2018, 11/12, 09/14/2008 Procedures Procedure Name Priority Date/Time Associated Diagnosis Comments LC LIPID PANEL AND CHOL/HDL RATIO Routine 10/24/2022 9:12 AM MARINE RADIO INSTALLER AND SERVICER Screening cholesterol level from Last 3 Months or Most Recently Relevant to Health Maintenance Results * (ABNORMAL) LC LIPID PANEL AND CHOL/HDL RATIO (10/24/2022 9:12 AM MARINE RADIO INSTALLER AND SERVICER) Cholesterol, Total 139 100 - 199 mg/dL 10/27/2022 2:07 PM MARINE RADIO INSTALLER AND SERVICER [facility] ([facility]) Triglycerides 121 0 - 149 mg/dL 10/27/2022 2:07 PM MARINE RADIO INSTALLER AND SERVICER [facility] (CET) HDL Cholesterol 31(L) >39 mg/dL 2:07 PM [facility] ([facility]) VLDL Cholesterol Bony 22 5 - 40 mg/dL 10/27/2022 2:07 PM MARINE RADIO INSTALLER AND SERVICER [facility] ([facility]) LDL Chol Calc ([facility]) 86 0 - 99 mg/dL 10/27/2022 2:07 PM MARINE RADIO INSTALLER AND SERVICER [facility] ([facility]) T. Chol/HDL Ratio 4.5 0.0 - 5.0 ratio 10/27/2022 2:07 PM MARINE RADIO INSTALLER AND SERVICER [facility] ([facility]) Comment: T. Chol/HDL Ratio Men Women 1/2 Avg.Risk 3.4 3.3 Avg.Risk 5.0 4.4 2X Avg.Risk 9.6 7.1 3X Avg.Risk 23.4 11.0 Blood BLOOD SPECIMEN / Unknown Venipuncture / Unknown 10/24/2022 9:12 AM MARINE RADIO INSTALLER AND SERVICER 10/24/2022 9:17 AM MARINE RADIO INSTALLER AND SERVICER Narrative [facility] (CET) - 10/27/2022 2:07 PM MARINE RADIO INSTALLER AND SERVICER Performed at: 01 - [address] [id number] Engineer Chief: Taiwo Brock MD, Phone: [phone] us America Card DO SEND OUTS Final Result [facility] (CET) [facility] [place] [address], from Last 3 Months or Most Recently Relevant to Health Maintenance Insurance [employer] [address]ER [id number] [phone] (Home) ATTN: CHELSEA FINK [phone] [id number] * Guarantor: [employer] [facility] Account Type Relation to Patient Date of Phone Billing Address [facility] Employer [address] [place] [address] Care Teams Rental Coordinator Relationship Specialty Start Date End Date America Card DO [address] [place] [address] PCP - General Internal Medicine 11/15/20
[2025-04-05 00:02] VITALS: BP 142/74; PULSE 73; RESP 16; TEMP 36.7; O2SAT 98; BMI 27.5
--- NOTE | 2025-04-05 00:05 | ED_ITS ---
HPI - Chest Pain General Time Seen by Provider: 00:05 Date Seen: 04/05/25 Chief Complaint: Chest Pain Stated Complaint: Sharp chest pain, back pain Time Seen by Provider: 04/05/25 00:05 Source: patient History of Present Illness HPI narrative: Anjel is a 39-year-old male who presents to the emergency department for evaluation of chest pain. Patient reports that yesterday morning he had some left upper back discomfort which he did not think anything up. Patient states that he is very active, boxes, and does get beat up a lot. Patient reports that last night when he was at work he developed some chest pain. Patient believes he thinks it started around 5:00 p.m.. Patient reports the pain is a constant pain in his left side of the chest that is worse with movement, deep breathing. Patient describes the pain as a sharp pain with deep breaths and feels as if he needs to take shallow breaths. 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 Denies any recent fever, chills, cough or cold-like symptoms. Denies any abdominal pain, nausea, vomiting and diarrhea. Patient denies any lower extremity edema or calf tenderness. No other medical complaints, no medical history, no significant family cardiac history. Patient denies any tobacco, alcohol use. No medications prior to arrival. Related Data Home Medications ?Medication ?Instructions ?Recorded ?Confirmed No Known Home Medications 02/17/2503/15 Allergies Allergy/AdvReac Type Severity Reaction Status Date / Time No Known Drug Allergies Allergy Verified 04/05/25 00:05 Review of Systems Narrative Past medical history, past surgical history, medications, allergies, family history, and social history were reviewed with the patient. No additional pertinent items. A medically appropriate review of systems was performed with pertinent positives and negatives noted in HPI, all other systems negative. [facility] Medical History Gout ?M10.9 - Gout, unspecified (ICD-10) Surgical History No significant past surgical history Social History What is your current living situation?: I presently have a place to live Problems where you live: no known problems Problems where you live details: none In past 12 months, lack of transportation kept you from medical appts, meetings, work, or getting things needed for daily living: no In the past 12 mos, have been you worried that your food would run out before you had money to buy more?: never true In the past 12 mos, the food you bought just didn't last and you didn't have money to buy more?: never true Smoking Status: Never smoker Do you use any of these nicotine containing products: None Second hand tobacco smoke exposure: No How often do you have a drink containing alcohol: never How often do you have six or more drinks on one occasion: Never AUDIT-C Alcohol total score: 0 Non-prescribed substance use: denies use Caffeine: Yes How often does anyone, including family, friends and others, physically hurt you : never How often does anyone, including family, friends and others, insult or talk down to you: never How often does anyone, including family, friends and others, threaten you with harm: never How often does anyone, including family, friends and others, scream or curse at you: never service: Yes Exam Narrative Exam Narrative: General: Afebrile, in distress secondary to pain HEENT: Normocephalic, atraumatic, conjunctiva normal. MMM Neck: non-tender, supple Cardio: regular rate. regular rhythm Resp: Normal work of breathing, no respiratory distress, lungs clear bilaterally, no wheezing, rhonchi, rales Chest/Back: no visual signs of trauma, no midline tenderness, no CVA tenderness Abdomen: soft, non distension, no tenderness, no peritoneal signs Neuro: alert and fully oriented. CN II-XII grossly intact. Grossly normal strength and sensation in all extremities. MSK: no deformities. Normal range of motion, no lower extremity edema or calf tenderness Integumentary/Skin: no rash visualized, normal color Psych: normal affect, normal behavior Const Vital Signs, click to edit/add: Vital Signs - 24 hr 04/05/25 00:02 04/05/25 00:17 04/05/25 02:15 Temperature 98.1 F 98.1 F Pulse Rate [Pulse Oximeter] 73 Respiratory Rate 16 Blood Pressure [Right Upper Arm] 142/74 H Pulse Oximetry 98 98 Oxygen Delivery Method Room Air Course Vital Signs Vital signs: Initial Vital Signs Temperature 98.1 F 04/05/25 00:02 Temperature Source Temporal Artery Scan 04/05/25 00:02 Pulse Rate 73 04/05/25 00:02 Respiratory Rate 16 04/05/25 00:02 Blood Pressure 142/74 H 04/05/25 00:02 Blood Pressure Mean 96 04/05/25 00:02 Blood Pressure Position Sitting 04/05/25 00:02 Pulse Oximetry 98 04/05/25 00:02 Oxygen Delivery Method Room Air 04/05/25 00:02 Vital Signs Temperature 98.1 F 04/05/25 00:02 Pulse Rate 73 04/05/25 00:02 Respiratory Rate 16 04/05/25 00:02 Blood Pressure 142/74 H 04/05/25 00:02 Pulse Oximetry 98 04/05/25 00:02 Oxygen Delivery Method Room Air 04/05/25 00:02 Temperature 98.1 F 04/05/25 02:15 Pulse Rate 73 04/05/25 00:02 Respiratory Rate 16 04/05/25 00:02 Blood Pressure 142/74 H 04/05/25 00:02 Pulse Oximetry 98 04/05/25 00:17 Oxygen Delivery Method Room Air 04/05/25 00:02 Medications Administered Medications: Discontinued Medications Generic Name Dose Route Start Last Admin Trade Name Freq PRN Reason Stop Dose Admin Ketorolac Tromethamine 15 mg 04/05/25 00:14 04/05/25 00:25 Ketorolac 15 Mg/Ml Inj IVP 04/05/25 00:15 15 mg ONCE ONE Administration MDM - Chest Pain MDM Narrative Medical decision making narrative: Anjel is a 39-year-old male who presents to the emergency department for evaluation of chest pain. Upon arrival patient is nontoxic appearing, afebrile, in distress secondary to pain. Patient is slightly hypertensive upon arrival 142/74, heart rate 73, oxygen 98% on room air. Differential diagnosis includes but is not limited to ACS versus atypical chest pain versus pleurisy versus musculoskeletal/inflammatory versus pneumothorax versus pneumonia versus PE among others. Patient was treated with IV Toradol upon arrival. I reviewed EKG which demonstrates normal sinus rhythm with a ventricular rate of 76 beats per minute, normal axis, QTC 432, no acute ischemic change. Comprehensive labs remarkable with no leukocytosis white blood cell count 7.5, hemoglobin 12.4, no acute metabolic electrolyte abnormality, negative troponin, D-dimer slightly elevated 0.59. Given patient's chest pain, pleuritic nature, elevated D-dimer CT imaging was performed. I personally reviewed interpreted CT scan of the chest which is unremarkable with no evidence of acute findings in the chest, no pulmonary embolism, pneumothorax, pleural effusion. On re-evaluation patient continues to be resting comfortably, no distress. Patient with no tachycardia, no hypoxia, no respiratory distress. I discussed results with patient. Unclear etiology, suspect likely musculoskeletal/inflammatory. At this time recommend continue supportive care with anti-inflammatories, Tylenol, ibuprofen, close outpatient follow-up. Strict return precautions discussed. Patient understands and agrees the plan. Lab Data Labs: Lab Results 04/05/25 Range/Units 00:20 WBC 7.59 (4.50-11.00) K/uL RBC 4.15 L (4.30-5.90) m/uL Hgb 12.4 L (13.5-17.5) gm/dL Hct 35.9 L (37.0-53.0) % MCV 87 (80-100) fL MCH 30 (26-34) pg MCHC 35 (32-36) gm/dL RDW Coeff of Bijal 12.1 (11.5-15.5) % Plt Count 246 (140-440) K/uL Neut % (Auto) 63.0 (42.0-72.0) % Lymph % (Auto) 24.8 (20-44) % [place] % (Auto) 8.6 (0.0-11.0) % Eos % (Auto) 3.0 (0.0-7.0) % Baso % (Auto) 0.5 (0.0-3.0) % Neut # (Auto) 4.78 (1.7-7.0) K/uL Lymph # (Auto) 1.88 (0.90-2.90) K/uL [place] # (Auto) 0.70 (0.00-0.90) K/UL Eos # (Auto) 0.23 (0.00-0.50) K/uL Baso # (Auto) 0.04 (0.00-0.30) K/uL Abs Immat Gran (auto) 0.01 (0.00-0.30) K/uL Imm/Tot Granulo (auto) 0.1 % D-Dimer Quant (PE/DVT) 0.59 H (0.00-0.50) ug/ml Sodium 137 (135-149) mmol/L Potassium 3.7 (3.6-5.1) mmol/L Chloride 102 (96-114) mmol/L Carbon Dioxide 27 (20-32) mmol/L Anion Gap 8 (7-15) mEq/L BUN 16 (5-24) mg/dL Creatinine 0.9 (0.5-1.5) mg/dL Estimated Creat Clear 114.91 Estimated GFR 112 ml/min Glucose 86 (60-115) mg/dL Calcium 9.3 (8.4-10.6) mg/dL Total Bilirubin 0.6 (0.1-1.5) mg/dL AST 23 (12-35) U/L ALT 25 (4-50) U/L Alkaline Phosphatase 80 (40-150) U/L Troponin I < 0.01 (0.01-0.04) ng/mL Total Protein 7.6 (6.0-8.3) g/dL Albumin 4.5 (3.3-5.0) g/dL Lipase 95 (23-300) U/L Discharge Plan Discharge Clinical Impression: Chest pain, Back pain Patient Disposition: Home, Self-Care Condition: Improved Additional Instructions: Please follow-up with your primary care provider in the next 3-5 days for further evaluation of follow-up with no improvement of your symptoms. Please rest, alternate taking Tylenol 1000 mg and ibuprofen 600 mg every 6 hours as needed for pain. Please return to the emergency department if you develop severe pain, difficulty breathing, weakness, or any worsening symptoms. It was a pleasure taking care of you today. We hope you feel better soon. Prescriptions: No Action No Known Home Medications Follow Up/Referrals: America Card DO [Primary Care Provider, Family Practice] Stand Alone Forms: [employer] Info Instructions
[2025-04-05 00:17] VITALS: O2SAT 98
--- OUTSIDE RECORDS SUMMARY | 2025-04-05 00:22 | XMS_ITS | Clinical Summary ---
Author Organization [employer] [facility] Address [address] [place] [id number] Care Team Providers Care Html Developer Name Role Phone America Card DO Primary Care Provider [phone] Allergies No known active allergies Medications hydrocortisone [...] on file Legal Sex Male 6:42 AM EMERGENCY MANAGEMENT PROGRAM SPECIALIST Gender Identity Not on file Sexual Orientation Not on file Occupation Industry Job Start Date Job End Date Not on file Not on file Not on file Not on file Obstetrics History Last Filed Vital Signs Vital Sign Reading Time Taken Comments Blood Pressure 116/77 09/23/2023 7:46 AM EMERGENCY MANAGEMENT PROGRAM SPECIALIST Pulse 88 09/23/2023 7:46 AM EMERGENCY MANAGEMENT PROGRAM SPECIALIST Temperature 36.8 C (98.3 F) 10/21/2022 12:04 PM EMERGENCY MANAGEMENT PROGRAM SPECIALIST Respiratory Rate 12 01/04/2018 1:17 PM CDT Oxygen Saturation 98% 09/23/2023 7:46 AM EMERGENCY MANAGEMENT PROGRAM SPECIALIST Inhaled Oxygen Concentration - - Weight 101.4 kg (223 lb 9.6 oz) 09/23/2023 7:46 AM EMERGENCY MANAGEMENT PROGRAM SPECIALIST Height 177.8 cm (5' 10) 04/23/2023 10: [...] AND CHOL/HDL RATIO Routine 10/24/2022 9:12 AM EMERGENCY MANAGEMENT PROGRAM SPECIALIST Screening cholesterol level from Last 3 Months or Most Recently Relevant to Health Maintenance Results * (ABNORMAL) LC LIPID PANEL AND CHOL/HDL RATIO (10/24/2022 9:12 AM EMERGENCY MANAGEMENT PROGRAM SPECIALIST) Cholesterol, Total 139 100 - 199 mg/dL 10/27/2022 2:07 PM EMERGENCY MANAGEMENT PROGRAM SPECIALIST [facility] Triglycerides 121 0 - 149 mg/dL 10/27/2022 2:07 PM EMERGENCY MANAGEMENT PROGRAM SPECIALIST [facility] HDL Cholesterol 31(L) >39 mg/dL 2:07 PM [facility] VLDL Cholesterol Bony 22 5 - 40 mg/dL 10/27/2022 2:07 PM EMERGENCY MANAGEMENT PROGRAM SPECIALIST [facility] LDL Chol Calc ([facility]) 86 0 - 99 mg/dL 10/27/2022 2:07 PM EMERGENCY MANAGEMENT PROGRAM SPECIALIST [facility] T. Chol/HDL Ratio 4.5 0.0 - 5.0 ratio 10/27/2022 2:07 PM EMERGENCY MANAGEMENT PROGRAM SPECIALIST [facility] Comment: T. Chol/HDL Ratio Men Women 1/2 Avg.Risk 3.4 3.3 Avg.Risk 5.0 4.4 2X Avg.Risk 9.6 7.1 3X Avg.Risk 23.4 11.0 Blood BLOOD SPECIMEN / Unknown Venipuncture / Unknown 10/24/2022 9:12 AM EMERGENCY MANAGEMENT PROGRAM SPECIALIST 10/24/2022 9:17 AM EMERGENCY MANAGEMENT PROGRAM SPECIALIST Narrative [facility] ([facility]) - 10/27/2022 2:07 PM EMERGENCY MANAGEMENT PROGRAM SPECIALIST Performed at: [address] [id number] Training Director: Taiwo Brock MD, Phone: [phone] us America Card DO SEND OUTS Final Result [facility] ([facility]) [facility] [place] [address], from Last 3 Months or Most Recently Relevant to Health Maintenance Insurance [employer] [address] [id number] (Home) ATTN: CHELSEA FINK [phone] [id number] * Guarantor: [employer] [facility] Account Type Relation to Patient Date of Phone Billing Address [facility] Employ[employer] [address] [place] [address] Care Teams Html Developer Relationship Specialty Start Date End Date America Card DO [address] [place] [address] PCP - General Internal Medicine 11/15/20
[2025-04-05 00:34] LABS: Hematocrit 35.9 % (37.0-53.0); Hemoglobin* 12.4 gm/dL (13.5-17.5); Immature Granulocytes Abs Auto 0.01 K/uL (0.00-0.30); Immature Granulocytes Pct Auto 0.1 %; Lymphocytes Absolute Auto 1.88 K/uL (0.90-2.90); Mean Corpuscular HGB Conc 35 gm/dL (32-36); Mean Corpuscular Hemoglobin 30 pg (26-34); Mean Corpuscular Volume 87 fL (80-100); RDW Coefficient of Variation % 12.1 % (11.5-15.5); Red Blood Count 4.15 m/uL (4.30-5.90); White Blood Count* 7.59 K/uL (4.50-11.00)
[2025-04-05 00:39] LABS: Slide Review Reflex No
[2025-04-05 00:43] LABS: Albumin* 4.5 g/dL (3.3-5.0); Chloride* 102 mmol/L (96-114); Potassium* 3.7 mmol/L (3.6-5.1); Sodium* 137 mmol/L (135-149)
[2025-04-05 00:46] LABS: Alanine Aminotransferase* 25 U/L (4-50); Alkaline Phosphatase* 80 U/L (40-150); Anion Gap 8 mEq/L (7-15); Aspartate Amino Transferase* 23 U/L (12-35); Bilirubin Total* 0.6 mg/dL (0.1-1.5); Blood Urea Nitrogen* 16 mg/dL (5-24); Calcium* 9.3 mg/dL (8.4-10.6); Carbon Dioxide* 27 mmol/L (20-32); Creatinine* 0.9 mg/dL (0.5-1.5); Est. Creatinine Clearance* 114.91; Estimated Glomerular Filt Rate 112 ml/min; Glucose* 86 mg/dL (60-115); Total Protein* 7.6 g/dL (6.0-8.3)
[2025-04-05 00:48] LABS: D Dimer Quantitative* 0.59 ug/ml (0.00-0.50)
--- NOTE | 2025-04-05 01:02 | CRLHL7_ITS ---
For Patients: As a result of the Century Cures Act, medical imaging exams and procedure reports are released immediately into your electronic medical record. You may view this report before your referring provider. If you have questions, please contact your health care provider. INDICATION: Chest pain, shortness of breath. TECHNIQUE: CT chest PE was acquired with 95 cc Isovue 370 IV contrast. COMPARISON: None. FINDINGS: Heart and vasculature: Contrast opacification of the pulmonary arterial tree is adequate. No sign of pulmonary embolism. Heart size is normal. Thoracic aorta and pulmonary artery are normal in caliber. Lungs and pleura: No suspicious nodules or infiltrates. No pleural effusions, pleural thickening, or pneumothorax. Lymph nodes/mediastinum: No mediastinal, hilar, or axillary adenopathy. Chest wall: No masses. Upper abdomen: Small left-sided nonobstructing nephroliths. Bones: Unremarkable for age. IMPRESSION: No pulmonary embolism. No acute findings in the chest. Please note that all CT scans at this facility use dose modulation, iterative reconstruction, and/or weight-based dosing when appropriate to reduce radiation dose to as low as reasonably achievable. Dictated by Oneal Santiago MD @ 04/05/2025 1:57:53 AM (Electronically Signed)
[2025-04-05 02:15] VITALS: TEMP 36.7
[2025-04-05 02:21] VITALS: BP 135/74; PULSE 70; RESP 16; TEMP 36.7; O2SAT 98
[2025-04-05 02:22] VITALS: BP 135/74; PULSE 70; RESP 16; TEMP 36.7
== END 2025-04-05 02:22 | disposition home or self-care (01) ==
PROVIDERS: Emergency Provider Emergency Medicine; PCP Family Medicine
DX: R07.9 Chest pain, unspecified (principal); M54.9 Dorsalgia, unspecified
CPT/HCPCS: 36415; 71275; 80053; 83690; 84484; 85025; 85379; 93005; 94761; 96374; 99285; J1885; Q9967